=== PATIENT | female | born 1940 | race Caucasian/White ===

== ENCOUNTER → 2017-09-14 14:13 | Outpatient (CLI) | payer MEDICARE, OTHER, SELFPAY | PROVIDERS: Family Provider Family Medicine; PCP Family Medicine; Visit Provider Radiology Radiation Oncology | DX: Z00.00 Encounter for general adult medical examination without abnormal findings (principal) | CPT/HCPCS: 88175; G0145 ==

== ENCOUNTER → 2018-10-30 14:29 | Outpatient (CLI) | payer MEDICARE, OTHER, SELFPAY ==
[2015-02-11 21:53] VITALS: BMI 46.3
== END ==
PROVIDERS: Family Provider Family Medicine; PCP Family Medicine; Referring Provider Radiology Radiation Oncology; Visit Provider Radiology Radiation Oncology
DX: Z12.4 Encounter for screening for malignant neoplasm of cervix (principal); Z85.42 Personal history of malignant neoplasm of other parts of uterus; Z92.3 Personal history of irradiation
CPT/HCPCS: 88175; G0145

== ENCOUNTER → 2019-12-26 13:21 | Outpatient (CLI) | payer MEDICARE, OTHER, SELFPAY ==
--- NOTE | 2019-12-26 13:22 | MRI_ITS ---
HISTORY: DDD LUMBAR, LBP, RIGHT HIP/LEG PAIN COMPARISON: Lumbar radiograph 12/19/2019. CT 05/29/2012 TECHNIQUE: Multiplanar, multisequence MRI of the lumbar spine without IV contrast. FINDINGS: 17 of right convex lumbar scoliosis. No concerning focal bone lesion. Conus ends at L1-2. Disc desiccation, moderate to severe disc space narrowing and mild disc bulging in the lower thoracic spine. L1-L2: Disc desiccation, moderate disc space narrowing and mild diffuse disc bulging. Facet hypertrophy. No critical canal stenosis. Moderate left sided foraminal stenosis. L2-L3: Disc desiccation, moderate disc space narrowing and mild diffuse disc bulging. Facet and ligamentous hypertrophy. Mild to moderate central canal canal stenosis. Moderate left sided foraminal stenosis. L3-L4: Disc desiccation, moderate disc space narrowing and disc bulging. Facet and ligament hypertrophy. Approximate 3 mm of anterolisthesis of L3 on L4. Severe central canal stenosis. Mild right and moderate left foraminal stenosis. L4-L5: Severe disc space narrowing with mild disc bulging and disc osteophyte complex. Facet and ligamentous hypertrophy. Approximate 2 mm of anterolisthesis of L4 on L5. Severe central canal stenosis. Mild right sided foraminal narrowing. L5-S1: Severe disc space narrowing with mild disc bulging and disc osteophyte complex. Facet and ligamentous hypertrophy. Moderate central canal stenosis. Mild bilateral foraminal narrowing. Left renal cysts for which no follow-up is warranted per consensus guidelines. MRI/Spine Lumbar (Routine) IMPRESSION: Lumbar spondylosis as detailed. at 0740 Reported and signed by: Tamy Corbett MD Electronically Signed: Tamy Corbett MD at 7:39 EDT Tel , Service support ,
== END ==
PROVIDERS: PCP Family Medicine; Referring Provider Orthopaedic Surgery; Visit Provider Orthopaedic Surgery
DX: M51.36 Other intervertebral disc degeneration, lumbar region (principal)
CPT/HCPCS: 72148

== ENCOUNTER → 2020-01-13 15:23 | Outpatient (CLI) | payer MEDICARE, OTHER, SELFPAY ==
[2015-02-11 21:53] VITALS: BMI 46.3
--- NOTE | 2020-01-13 15:26 | RAD_ITS ---
STUDY: X-RAY - LUMBAR SPINE REASON FOR EXAM: Female, 79 years old. BACK,LEG PAIN TECHNIQUE: 2 view(s) of the lumbar spine were obtained. COMPARISON: None FINDINGS: Flexion and extension views were obtained. There is multilevel endplate spondylosis of the lumbar vertebrae. There is multi-level degenerative disc disease with multi-level disc space narrowing. Stable anterior listhesis of L3 on L4 and L4 on L5. Facet joint osteoarthritis. There is atherosclerotic calcification of the abdominal aorta without a demonstrated aneurysm. RAD/Lumbar Spine 2 or 3 Views IMPRESSION: Stable anterior listhesis of L3 on L4 and L4 on L5. Electronically Signed: Alex Elder, at 12:49 EST , Service support ,
== END ==
PROVIDERS: PCP Family Medicine; Referring Provider Anesthesiology Pain Medicine; Visit Provider Anesthesiology Pain Medicine
DX: M54.9 Dorsalgia, unspecified (principal); M79.606 Pain in leg, unspecified
CPT/HCPCS: 72100

== ENCOUNTER → 2020-05-04 16:28 | Outpatient (CLI) | payer MEDICARE, SELFPAY ==
[2015-02-11 21:53] VITALS: BMI 46.3
--- NOTE | 2020-05-04 16:45 | RAD_ITS ---
STUDY: X-RAY - LUMBAR SPINE REASON FOR EXAM: Female, 79 years old. FALL TECHNIQUE: 3 view(s) of the lumbar spine were obtained. COMPARISON: None FINDINGS: Normal lumbar lordosis. There is a dextroscoliosis of the lumbar spine. There is a normal alignment of the vertebrae. There is multilevel endplate spondylosis of the lumbar vertebrae. Moderate degree of disc space narrowing and subchondral sclerosis at the L4-L5 level. Marked degree of disc space narrowing and spondylosis at the L5-S1 level. Facet joint osteoarthritis. There is atherosclerotic calcification of the abdominal aorta without a demonstrated aneurysm. RAD/Lumbar Spine 2 or 3 Views IMPRESSION: Degenerative changes of the spine, as detailed above. Electronically Signed: Alex Elder MD at 13:09 EST , Service support ,
== END ==
PROVIDERS: PCP Family Medicine; Referring Provider Anesthesiology Pain Medicine; Visit Provider Anesthesiology Pain Medicine
DX: M54.5 Low back pain (principal); W19.XXXA Unspecified fall, initial encounter
CPT/HCPCS: 72100

== ENCOUNTER 2020-07-06 10:30 | Outpatient (RCR) | payer MEDICARE, SELFPAY ==
--- NOTE | 2020-06-08 18:48 | HP.PTEVAL_ITS ---
Patient's Visit Information ELÍAS AHN is a 79 year old F referred to Physical Therapy by Dr. Madhu Villeda MD with a diagnosis of BACK PAIN ,STABILITY. Date of Evaluation: 06/08/20 Physical Therapist: Jeff Lopez PT, Cert MDT, OCS - Visit Plan Frequency: 2x /Week Duration: 4 Weeks Plan: PT INTEREVTIONS LUMBAR FLEXION ,DLS,POSTURAL EX'S ,BLE STRENGTHENING ,AND MODALTIES NEEDED - Subjective This 79 y/o female presents to physical therapy with back pain and instablity.Patient has had leg pain for 3-4 months . Patient had a incident that she fell in May because legs gave way.Intailly ,patienr seen DR Morrow then was reffered to Dr Franco ,did MRI and x-rays showed severe DDD and lumbar stenosis.Ortho DR Franco sated not a canditate for surgery due to the severity Patient has symmtrical LBP and and intermittant radicular symptoms in legs. Then referrred to pain management DR Garcia tried 2 epidural injections.Aggraveting factors standing and walking ,walks with came ,elevation from chair. Allevaiting factors leaning foward ,sitting. Pain affects sleeping .Occasional parathesia/tingling. Bowel/bladder -. Coughing/sneezing -. Pain is described as dull ache.Patient comorbities sleep apnea,restlegs ,right TSR,. Patient back and leg pain along with weakness affects function and walking. SOCIAL: single. VOCATION: retired - Pain Bilateral Back Pain Intensity (Out of 10): 4 Bilateral Lower Extremity Pain Intensity (Out of 10): 4 Comment: worse 10/13 - Objective POSTURE: mild/mod thoracic kyphosis. NEURO: denies paratheisa/tinling,reflexes L3-4,L4-5,L5-S1 1/3. PALAPTION: tender LS. GAIT: slow aliya with 2 point pattern with cane mild foward posture slightly unsteady. SYMMTRIES:align. FLEXABLITY: hams WNL,IR 10 degrees. LUMBAR ROM: flexion min/mod loss,extension mod loss,side glides min/mod loss. MMT: quads/hams 4-/5,hip flexion 4-/5,hip abd 3+/5,ankle 4/5 - Special Tests L/S Slump test left side: Positive L/S Slump test right side: Positive L/S Left Straight Leg Raise: Negative L/S Right Straight Leg Raise: Negative Lumbar Standing: Flexion - Mechanical Response: No effect Lumbar Standing: Flexion - Symptoms During Testing: No effect Lumbar Standing: Flexion - Symptoms After Testing: No effect Lumbar Standing: Extension - Mechanical Response: No effect Lumbar Standing: Extension - Symptoms During Testing: Increases Lumbar Standing: Extension - Symptoms After Testing: No worse Lumbar Standing: Right Side Glides - Mechanical Response: No effect Lumbar Standing: Right Side [place] - Symptoms During Testing: No effect Lumbar Standing: Right Side [place] - Symptoms After Testing: No effect Lumbar Standing: Left Side [place] - Mechanical Response: No effect Lumbar Standing: Left Side [place] - Symptoms During Testing: No effect Lumbar Standing: Left Side [place] - Symptoms After Testing: No effect - Goals Goal 1:: Patient to be I with HEP Goal Time Frame: 4-6 Weeks Goal 2:: Patient to improve gait with less pain community distances Goal Time Frame: 4-6 Weeks Goal 3:: Patient to decrease back and leg pain by 50% or > to improve function and QOL Goal Time Frame: 4-6 Weeks Goal 4:: Patient to increase strength BLE 4/5 to improve function with gait. Goal Time Frame: 4-6 Weeks Goal 5:: Patient to improve BACK owestry score by 5 points or > to improve QOL Goal Time Frame: 4-6 Weeks - Rehabilitation Potential Physical Therapy Diagnosis: This patient has severe spinal stenosis with weakness in legs causes pain with walking and standing thus need cane better with flexion thus benifit from skilled PT Rehabilitation Potential: Good - Anticipated Interventions Patient/Client Instruction: Educate patient on: Condition, Plan of Care For the Purpose of:: To decrease pain, To increase ROM, To improve muscle performance and motor function, To improve ability to perform ADL's, To increase tolerance to activity/condition/position, To improve ability of physical actions for home/community/work/leisure, To improve health of tissue, To decrease soft tissue restriction, To increase flexibility/ROM, To improve ability to perform tasks related to life management Therapeutic Exercise to Include: Strength training, Endurance training, Balance training, Postural training, Flexibilty training, Dynamic Lumbar Stabilization Comment: BLE For the Purpose of:: To decrease pain, To increase ROM, To improve muscle performance and motor function, To improve ability to perform ADL's, To increase tolerance to activity/condition/position, To improve performance and independence with ADL's, To improve ability of physical actions for home/community/work/leisure, To improve health of tissue, To decrease soft tissue restriction, To increase flexibility/ROM, To improve ability to perform tasks related to life management TENS: Yes IF ES: Yes Cryotherapy (ice pack, ice massage): Yes Thermo therapy (hot pack): Yes Ultrasound (thermal/non thermal): Yes For the Purpose of:: To decrease pain, To improve nutrient delivery to tissue, To increase oxygenation perfusion, To improve health of tissue, To decrease soft tissue restriction Thank you for the opportunity to evaluate your patient. For Medicare and Medicare HMO plans, please review the plan of care and approve it. It will need to be FAXED BACK to us at [phone] for Medicare purposes. For Medicare only, by signing this I certify the plan of care. Please let me know if there are questions or concerns regarding this plan of care. Physician Signature: Date:
--- NOTE | 2020-07-06 10:58 | HP.PTDCSUM ---
It has been my pleasure to treat ELÍAS AHN referred by Dr. Madhu Villeda MD, with the diagnosis of BACK PAIN ,STABILITY for a total of 8 visit(s). Discharge Date: 07/06/20 Please see the following information for a summary of their discharge status. Subjective: Ready for d/c .. Had injection which helped. No pain today Bilateral Back Pain Intensity (Out of 10): 0 Bilateral Lower Extremity Pain Intensity (Out of 10): 0 % Improvement: 50 Objective/Function: POSTURE: mild foward psoture. GAIT: ambulates with cane mild foward posture with cane. MMT: QUADS/HAMS 4/5,HIP FLEXION 4-/5. LUMBAR:FLEXION MIN ,EXTENSION MOD LOSS Goal 1:: Patient to be I with HEP Goal Progress: Goal Met Goal 2:: Patient to improve gait with less pain community distances Goal Progress: Goal Met Goal 3:: Patient to decrease back and leg pain by 50% or > to improve function and QOL Goal 4:: Patient to increase strength BLE 4/5 to improve function with gait. Goal 5:: Patient to improve BACK owestry score by 5 points or > to improve QOL Goal Progress: Goal Met Plan: d/c to home Discharge Comments: HEP If there are questions or concerns regarding this patient's physical therapy, please feel free to call me at [phone]. Thank you for the referral of this patient. Sincerely, Jeff Lopez, PT, Cert MDT, OCS
== END 2020-07-06 19:00 | disposition home or self-care (01) ==
LOC: PT 10:30
PROVIDERS: PCP Family Medicine; Referring Provider Anesthesiology Pain Medicine; Visit Provider Anesthesiology Pain Medicine
DX: M54.9 Dorsalgia, unspecified (principal)
CPT/HCPCS: 97110; 97162

== ENCOUNTER → 2020-11-28 09:37 | Outpatient (CLI) | payer MEDICARE, SELFPAY ==
[2020-11-28 10:28] LABS: Erythrocyte Sedimentation Rate 48 mm/hr (0-30)
[2020-11-28 10:29] LABS: Absolute Lymphocyte Count 1.46 X10^3/uL (0.83-4.51); Absolute Neutrophil Count 3.1 X10^3/uL (2.0-7.7); Basophil# 0.02 X10^3/uL; Basophil% 0.4 % (0-1); Eosinophil# 0.09 X10^3/uL; Eosinophils% 1.8 % (0-5); Hematocrit 39.7 % (37-47); Hemoglobin 12.6 g/dL (12.0-15.0); Lymphocyte # 1.46 X10^3/ul (0.83-4.51); Lymphocyte % 28.7 % (19-41); Mean Corp Hgb Conc 31.7 g/dL (32-36); Mean Corpuscular Hgb 29.9 pg (27.0-32.0); Mean Corpuscular Volume 94.1 fL (81-99); Mean Platelet Vol. 10.2 fl (6.2-12.0); Monocyte# 0.43 X10^3/uL; Monocyte% 8.4 % (0-10); NRBC Flagged by Analyzer 0 % (0-5); Neutrophil # 3.08 X10^3/uL (2.7-7.7); Neutrophil % 60.5 % (47-70); Platelet Count 211 K/mm3 (150-450); RBC Distribution Width CV 13.5 % (11.6-14.6); RBC Distribution Width SD 46.8 fl (35.1-43.9); Red Blood Count 4.22 M/mm3 (4.2-5.4); White Blood Count 5.1 K/mm3 (4.4-11.0)
[2020-11-28 10:33] LABS: CRP 5.74 mg/L (0.0-3.0)
== END ==
PROVIDERS: PCP Family Medicine; Referring Provider Specialist; Visit Provider Specialist
DX: Z96.652 Presence of left artificial knee joint (principal)
CPT/HCPCS: 36415; 85025; 85652; 86140

== ENCOUNTER 2021-12-13 14:27 | Emergency (ER) | payer MEDICARE, SELFPAY ==
[2021-12-13 14:28] VITALS: BP 134/78; PULSE 78; RESP 16; TEMP 37.2; O2SAT 99; BMI 44.6
--- NOTE | 2021-12-13 14:45 | CT_ITS ---
STUDY: CT BRAIN WITHOUT CONTRAST REASON FOR EXAM: Female, 81 years old. FALL/ON ELIQUIS -- IN WAITING ROOM. Head injury. No loss of consciousness. RADIATION DOSAGE (If Supplied By Facility): CTDIvol = ( 44.99 ) mGy, DLP = ( 779.24 ) mGycm TECHNIQUE: Transaxial CT imaging of the brain was performed without administration of intravenous contrast material. Individualized dose optimization techniques were used for this CT. COMPARISON: No relevant priors. FINDINGS: Normal soft tissue structures. Normal calvarium. There is mild cerebral atrophy with widening of the extra-axial spaces and ventricular dilatation. There are areas of decreased attenuation within the white matter tracts of the supratentorial brain, consistent with microvascular disease changes. Findings suggestive of an old lacunar in the right basal ganglia. Normal brainstem. Normal cerebellum. There is no intracranial hemorrhage. There are no findings of an acute ischemic infarction. Normal visualized paranasal sinuses. CT/Brain/Head without Contrast IMPRESSION: Chronic involutional changes of the brain. Electronically Signed: Alex Elder MD at 15:11 EDT ,
--- NOTE | 2021-12-13 15:19 | ED.VIS.FALL ---
HPI HPI - Fall History of Present Illness Chief Complaint: Fall Informant: patient Occured/Mechanism Occurred: Today Mechanism/Context: Yes same level fall Usually ambulates: Walker Pain/Injury Pain Location: head Quality of Pain: Dull Current Severity: Mild Maximum Severity: Mild Associated Symptoms Associated Symptoms: Negative for Parasthesias, Weakness, Loss of function, Inability to ambulate, Loss of consciousness or Amnesia Narrative Narrative: 81-year-old female states that she and friends went out to eat. The [facility] and she was parked there when she went back to the car she uses a walker estrogenic in her car she lost her balance fell backwards hit her head. She is on the blood thinner Xarelto due to her prior clot. Said she was not knocked out. Denies any headache. Denies any other injuries. She was brought in by squad to be evaluated. She denies any recent illness. Says she was feeling fine today. Prior similar symptoms: No Recent Illness/Hospitalization: No PFSH PFSH Home Medications calcium carbonate 600 mg calcium (1,500 mg) tablet 600 mg PO DAILY 01/14/15 [History Last Taken Unknown] multivitamin 1 tab PO DAILY 01/14/15 [History Last Taken Unknown] ropinirole 0.25 mg tablet 0.25 mg PO QHS 01/14/15 [History Last Taken Unknown] famotidine 20 mg tablet 20 mg PO DAILY #30 tabs 02/13/15 [Rx Last Taken Unknown] losartan 100 mg-hydrochlorothiazide 25 mg tablet tab PO 02/12/20 [History Last Taken Unknown] paroxetine HCl 40 mg tablet ea PO 02/12/20 [History Last Taken Unknown] Allergy/AdvReac Type Severity Reaction Status Date / Time Penicillins [PCN] Allergy Hives Verified 12/13/21 14:27 Social History Smoking Status: Never smoker ROS ROS ED ROS Narrative Denies recent illness. Review of Systems ROS Unobtainable: Denies due to encephalopathy Constitutional Constitutional ED: Denies chills or fever(s) Eyes Eyes: Denies blurry vision ENT ENT ED: Denies ear pain Cardiovascular Cardiovascular: Denies chest pain or palpitations Respiratory/Chest Respiratory/Chest: Denies cough or dyspnea Gastrointestinal Gastrointestinal: Denies abdominal pain Genitourinary Genitourinary ED: Denies dysuria or hematuria Musculoskeletal Musculoskeletal: Denies arthralgias Integumentary Denies abscess or Abrasions Neurologic Neurologic: Denies headache(s) Psychiatric Psychiatric: Denies anxiety Endocrine Endocrinology: Denies polydipsia Hematologic/Lymphatic Hematologic/Lymphatic: Denies easy bleeding Allergic/Immunologic Allergic/Immunologic ED: Denies mouth swelling or tongue swelling EXAM Physical Exam Narrative Exam Narrative: 81-year-old female no acute distress. Vital signs stable afebrile. Pulse ox 9 9% on room air no hypoxia. H EENT exam pupils round reactive light extra motions intact. No facial trauma. She is small contusion of posterior scalp. Minimally tender. No laceration or blood. C-spine nontender. Normal range of motion her neck. Trachea midline. Lungs clear to auscultation bilaterally. Heart regular rhythm rate about 80 no murmur. Chest wall nontender. Abdomen soft nontender. Pelvic girdle intact. Back and spine are nontender. No bruising or abrasions. Moving all 4 extremities. Normal executive [employer] strength bilaterally. Normal range of motion both upper extremities. Both hips are nontender. No shortening or rotation. Normal dorsi and plantar flexion. No bony tenderness or deformity to either upper or lower extremities. Neurologically she is awake and alert with no focal motor deficits. Const Vital Signs: 12/13/21 14:28 Temperature 98.9 F Temperature Source Temporal Pulse Rate 78 Respiratory Rate 16 Blood Pressure 134/78 H Blood Pressure Mean 96 Pulse Ox 99 Oxygen Delivery Method Room Air Positive well nourished, well developed and obese; Negative for cachectic, contractures or unkempt General Appearance ED: well developed and NAD; Negative for unkempt, cachectic or contractures Nutritional Appearance: obese; Negative for cachectic HEENT Reports normocephalic trauma and contusion; Negative for atraumatic, hematoma or tenderness Eyes PERRL and EOMs intact bilaterally General Eye ED: Negative for pale conjunctiva or scleral icterus Neck full ROM, no lymphadenopathy and supple General: Negative for tenderness Chest Wall inspection of chest normal and palpation of chest normal Resp normal respiratory effort, no retractions and clear to auscultation bilaterally Effort and Inspection: Negative for pain with movement Auscultation: Negative for rales, rhonchi or wheezes Cardio regular rate, regular rhythm, S1 normal heart sound, S2 normal heart sound and no murmurs Rate: Negative for bradycardia or tachycardic Rhythm: Negative for abnormal rhythm Bruits: Negative for other GI non-tender, non-distended and no masses Inspection: Negative for abdominal distention Auscultation: normoactive bowel sounds Palpation: soft; Negative for guarding Back/Spine no CVA tenderness General Back: Negative for CVA tenderness Cervical Spine: Negative for cervical spine tenderness Thoracic Spine / Upper Back: ROM limited; Negative for pain with ROM or thoracic spinal tenderness Lumbar Spine / Lower Back: Negative for lumbar spinal tenderness or paraspinal muscle tenderness Neuro oriented x3, CN's II-XII intact bilaterally, moves all extremities and no focal motor deficits Kavitha Coma Scale: document GCS findings Spontaneous Obeys Commands Oriented 15 Sensorium / Orientation: alert, oriented to person, oriented to place and oriented to time; Negative for orientation impaired, confused, lethargic or stuporous Motor Exam: strength 5/5 throughout Psych mental status grossly normal and thought process normal Appearance: Negative for unkempt Attitude: No agitated Mood & Affect: Negative for depressed Skin General Skin Exam: Negative for other Lesions: no lesions Rashes: no rashes Trauma: Negative for abrasion MDM MDM MDM Narrative Medical decision making narrative: 81-year-old fell while getting in her car using her walker. Hit the back of her head. On Xarelto. CAT scan obtained. Shows no acute abnormality. No bleed. No fracture. Read by the radiologist and reviewed by me. Patient will be ambulated by nursing if she can walk she will be discharged home. Her exam otherwise is benign. Patient doing well repeat exam at 4:05 PM. CAT scan was negative. She ambulated well with the nurses will be discharged home with head injury instructions. Radiography Diagnostic Testing: Clinical Impression(s) from Imaging Studies Brain CT 12/13/21 14:45 IMPRESSION: Chronic involutional changes of the brain. Electronically Signed: Alex Elder MD at 15:11 EDT , Discharge Plan Triage Chief Complaint: Fall ED Provider: Franklin Rodriguez Dx/Rx/DC Orders Clinical Impression: Fall, CHI (closed head injury) Instructions: ED Head Injury (Adult) Prescriptions: No Action paroxetine HCl 40 mg tablet PO Label Comments: take 1 tablet by mouth once daily losartan-hydrochlorothiazide 100-25 mg tablet PO multivitamin 1 EACH tablet 1 tab PO DAILY Label Comments: supplement calcium carbonate 600 MG tablet 600 mg PO DAILY Label Comments: supplement ropinirole 0.25 MG tablet 0.25 mg PO QHS Label Comments: 1 OR 2 TABS BEFORE BEDTIME famotidine 20 MG tablet 20 mg PO DAILY Qty: 30 0RF Primary Care Provider: Chay Solis Referrals: Chay Solis MD [Primary Care Provider] - As Needed Activity Restrictions/Additional Instructions: Ice to your back your head. Tylenol for pain. Return if severe headache, vomiting or not acting herself. Hold your blood thinning medication today. May restart tomorrow. Disposition Disposition: Home, Self Care
[2021-12-13 16:13] VITALS: BP 142/75; PULSE 80; RESP 16; O2SAT 98
== END 2021-12-13 16:14 | disposition home or self-care (01) ==
PROVIDERS: Emergency Provider Emergency Medicine; PCP Family Medicine; Visit Provider Emergency Medicine
DX: S09.90XA Unspecified injury of head, initial encounter (principal); W18.30XA Fall on same level, unspecified, initial encounter; E66.9 Obesity, unspecified; Z79.01 Long term (current) use of anticoagulants
CPT/HCPCS: 70450; 99285

== ENCOUNTER 2022-05-30 16:16 | Inpatient (IN) | payer MEDICARE, MEDICAID, SELFPAY ==
[2022-05-30 16:18] VITALS: BP 136/78; PULSE 107; RESP 18; TEMP 36.2; O2SAT 99
--- NOTE | 2022-05-30 17:56 | ED.VIS.FALL ---
HPI HPI - Fall History of Present Illness Chief Complaint: Fall Informant: patient Occured/Mechanism Occurred: Today Pain/Injury Location: Bilateral knees, right ankle Quality of Pain: Aching Worsened by: Nothing Relieved by: Nothing Associated Symptoms Associated Symptoms: Positive for Weakness; Negative for Parasthesias, Loss of function, Inability to ambulate, Loss of consciousness or Amnesia Narrative Narrative: Patient presents after a fall that occurred today. Patient states that she was trying to get into her truck and her leg felt weak. Patient states it gave out and she fell to the ground. Patient complains of pain to both knees and the right ankle. Patient denies any head injury or loss of consciousness. Patient describes her pain as aching. Patient states both of her legs feel weak but her right one feels weaker. Patient denies any fevers or chills. Patient does admit to some pain in her neck but denies any low back pain. Patient denies any paresthesias. Patient denies any hip pain. Patient denies any chest pain or shortness of breath. Patient denies any urinary complaints. [facility] Medical History Congestive heart failure (CHF) Hypertension Restless leg syndrome Home Medications calcium carbonate 600 mg calcium (1,500 mg) tablet 600 mg PO DAILY 01/14/15 [History Last Taken Unknown] multivitamin 1 tab PO DAILY 01/14/15 [History Last Taken Unknown] ropinirole 0.25 mg tablet 0.25 mg PO QHS 01/14/15 [History Last Taken Unknown] famotidine 20 mg tablet 20 mg PO DAILY #30 tabs 02/13/15 [Rx Last Taken Unknown] losartan 100 mg-hydrochlorothiazide 25 mg tablet tab PO 02/12/20 [History Last Taken Unknown] paroxetine HCl 40 mg tablet ea PO 02/12/20 [History Last Taken Unknown] Allergy/AdvReac Type Severity Reaction Status Date / Time Penicillins [PCN] Allergy Hives Verified 05/30/22 16:24 Family History (Updated 05/30/22 @ 20:[address] Des Camilo MD) Other COPD (chronic obstructive pulmonary disease) Hypertension Surgical History History of right hip replacement History of right shoulder replacement History of total left hip replacement History of total left knee replacement History of total replacement of left shoulder joint Status post right partial knee replacement Social History Smoking Status: Never smoker ROS ROS ED Constitutional Constitutional ED: Denies chills or fever(s) Eyes Eyes: Denies blurry vision or change in vision ENT ENT ED: Denies rhinorrhea or sore throat Cardiovascular Cardiovascular: Denies chest pain or palpitations Respiratory/Chest Respiratory/Chest: Denies cough or dyspnea Gastrointestinal Gastrointestinal: Denies nausea or vomiting Genitourinary Genitourinary ED: Denies dysuria or hematuria Musculoskeletal Musculoskeletal: Reports neck pain; Denies back pain Integumentary Denies abscess or rash Neurologic Neurologic: Reports weakness; Denies headache(s) Hematologic/Lymphatic Hematologic/Lymphatic: Reports easy bruising Allergic/Immunologic Allergic/Immunologic ED: Denies mouth swelling or urticaria EXAM Physical Exam Const Vital Signs: 05/30/22 16:18 05/30/22 17:51 05/30/22 20:35 Temperature 97.1 F L Temperature Source Temporal Pulse Rate 107 H 121 H Respiratory Rate 18 18 Respiratory Effort Normal Non-Labored Respiratory Depth Normal Respiratory Pattern Normal Blood Pressure 136/78 H Blood Pressure Mean 97 Pulse Ox 99 97 Oxygen Delivery Method Room Air Room Air Positive well nourished, well developed and obese General Appearance ED: well developed and NAD Nutritional Appearance: obese HEENT Reports normocephalic atraumatic Neck no lymphadenopathy and supple Resp normal respiratory effort and clear to auscultation bilaterally Cardio regular rate and regular rhythm GI non-tender and non-distended Palpation: soft Extremity Extremity Narrative: There is mild tenderness over the knees bilaterally. Extensor mechanism is intact bilaterally. There is mild tenderness over the right ankle. There is mild edema. There is no ecchymosis. There is no bony crepitance or step-off. There is no obvious deformity noted. Pedal pulses are equal bilaterally. Sensation was intact to light touch bilaterally in the lower extremities. Neuro oriented x3, CN's II-XII intact bilaterally, moves all extremities, no focal motor deficits and no sensory deficits noted Sensorium / Orientation: alert Motor Exam: strength abnormal other (Strength is 4/5 in the lower extremities bilaterally, slightly worse on the right.) Psych mental status grossly normal and thought process normal MDM MDM MDM Narrative Medical decision making narrative: Differential diagnosis includes general weakness, infection, fracture of the knee, ankle fracture, cardiac dysrhythmia, cardiac ischemia, electrolyte abnormality, and pneumonia. CBC will be obtained to assess for anemia and leukocytosis. Basic metabolic profile will be obtained to assess for electrolyte abnormality and renal function. Urinalysis will be obtained to assess for urinary tract infection and hematuria. EKG will be obtained to assess for cardiac ischemia and cardiac dysrhythmia. High-sensitivity troponin will be obtained to assess for cardiac ischemia. X-rays of the knees will be obtained to assess for fracture. X-ray of the right ankle will be obtained to assess for ankle fracture. Lab Data Lab results narrative: CBC was reviewed and was within normal limits. Basic metabolic profile was reviewed and showed a potassium of 2.9. The remainder was within normal limits. High-sensitivity troponin was reviewed and was elevated at 690. Urinalysis was reviewed. There is no evidence of urinary tract infection or hematuria. Labs: Laboratory Results - last 24 hr 05/30/22 05/30/22 05/30/22 16:35 18:35 18:35 WBC 8.8 RBC 4.30 Hgb 12.1 Hct 38.1 MCV 88.6 MCH 28.1 MCHC 31.8 L RDW Std Deviation 47.8 H RDW Coeff of Beth 14.6 Plt Count 228 MPV 9.9 Immature Gran % (Auto) 0.100 Neut % (Auto) 85.2 H Lymph % (Auto) 8.2 L [place] % (Auto) 6.0 Eos % (Auto) 0.2 Baso % (Auto) 0.3 Absolute Neuts (auto) 7.5 Absolute Lymphs (auto) 0.72 L Nucleated RBC % 0 Sodium 138 Potassium 2.9 L Chloride 102 Carbon Dioxide 30.0 Anion Gap 6 BUN 13 Creatinine 0.65 Est GFR (MDRD) Af Amer 113 Est GFR (MDRD) Non-Af 94 BUN/Creatinine Ratio 20.1 H Glucose 96 Calcium 9.1 Magnesium Troponin I High Sens 690 H* Urine Color Yellow Urine Clarity Clear Urine pH 7.0 Ur Specific [place] 1.010 Urine Protein 15 H Urine Glucose (UA) Normal Urine Ketones 50 H Urine Occult Blood 10 H Urine Nitrite Negative Urine Bilirubin Negative Urine Urobilinogen Normal Ur Leukocyte Esterase Negative Urine RBC 0 SEEN Urine WBC 0-5 SEEN Ur Squamous Epith Cells 0 SEEN Urine Bacteria 0 SEEN Urine Mucus 0 SEEN 05/30/22 18:35 WBC RBC Hgb Hct MCV MCH MCHC RDW Std Deviation RDW Coeff of Beth Plt Count MPV Immature Gran % (Auto) Neut % (Auto) Lymph % (Auto) [place] % (Auto) Eos % (Auto) Baso % (Auto) Absolute Neuts (auto) Absolute Lymphs (auto) Nucleated RBC % Sodium Potassium Chloride Carbon Dioxide Anion Gap BUN Creatinine Est GFR (MDRD) Af Amer Est GFR (MDRD) Non-Af BUN/Creatinine Ratio Glucose Calcium Magnesium 1.2 L Troponin I High Sens Urine Color Urine Clarity Urine pH Ur Specific [place] Urine Protein Urine Glucose (UA) Urine Ketones Urine Occult Blood Urine Nitrite Urine Bilirubin Urine Urobilinogen Ur Leukocyte Esterase Urine RBC Urine WBC Ur Squamous Epith Cells Urine Bacteria Urine Mucus Radiography Chest X-Ray - ED: 1 View, Read by ED Physician, Read by Radiologist and No Acute Disease Diagnostic Testing: Clinical Impression(s) from Imaging Studies Ankle X-Ray 05/30/22 19:00 IMPRESSION: There is soft tissue swelling. Electronically Signed: Chalino Reynoso MD at 19:46 EDT , Chest X-Ray 05/30/22 19:00 IMPRESSION: There are no acute findings. Electronically Signed: Chalino Reynoso MD at 19:46 EDT , Knee X-Ray 05/30/22 19:00 IMPRESSION: There are no acute findings. 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 Electronically Signed: Chalino Reynoso MD at 19:47 EDT , X-rays of the right knee were obtained. There are 2 views. On my independent interpretation, there is no acute fracture or dislocation. The prosthesis is intact. Radiologist also interpreted the x-rays and agrees. X-rays of the left knee were obtained. There are 2 views. On my independent interpretation, there is no acute fracture or dislocation. The prosthesis is intact. Radiologist also interpreted the x-rays and agrees. X-rays of the right ankle were obtained. There are 3 views. On my independent interpretation, there is no acute fracture or dislocation. There is some mild soft tissue swelling. Radiologist also interpreted the x-rays and agrees. Portable 1 view chest x-ray was obtained. On my independent interpretation, lung merritt are clear. There is normal cardiac silhouette. Bony thorax is normal. There is no acute process noted. Radiologist also interpreted the x-ray and agrees. EKG Initial EKG: Attestation: I personally reviewed and interpreted this EKG as follows: Interpretation: Sinus Rhythm (104), No Acute Injury Pattern and RBBB Prior EKG tracings: available for review Prior: Changed (The right bundle branch block pattern is new compared to previous EKG dated 02/25/2014.) Management Discussion w/another healthcare provider: Hospitalist and [employer] Finishing Supervisor (Dr. Mendez from cardiology) Treatment and Re-Evaluation Narrative: Patient was advised of her findings. Patient was given a dose of potassium here. Patient was also given aspirin. Case was discussed with the hospitalist. He will admit the patient to his service. Case was also discussed with fashion artist. He recommended obtaining a CTA of the chest. He will follow the patient in consultation. Patient understands and is agreeable with the plan. All questions were answered. Discharge Plan Triage Chief Complaint: Fall ED Provider: Robbie Mcdonald Dx/Rx/DC Orders Clinical Impression: Weakness, Fall, Elevated troponin, Hypokalemia Prescriptions: No Action paroxetine HCl 40 mg tablet PO Label Comments: take 1 tablet by mouth once daily losartan-hydrochlorothiazide 100-25 mg tablet PO multivitamin 1 EACH tablet 1 tab PO DAILY Label Comments: supplement calcium carbonate 600 MG tablet 600 mg PO DAILY Label Comments: supplement ropinirole 0.25 MG tablet 0.25 mg PO QHS Label Comments: 1 OR 2 TABS BEFORE BEDTIME famotidine 20 MG tablet 20 mg PO DAILY Qty: 30 0RF Primary Care Provider: Chay Solis Referrals: Chay Solis MD [Primary Care Provider] - Disposition Disposition: Acute Care Hospital [facility]
[2022-05-30 18:51] LABS: Bacteria 0 SEEN /hpf (None Seen); Mucous, Urine 0 SEEN /hpf (<or=2+); Red Blood Cells-Urine 0 SEEN /hpf (0-5); Squamous Epithelial Cells - UA 0 SEEN /hpf (5-10)
[2022-05-30 18:53] LABS: Color, Urine Yellow (Yellow); Glucose, Dipstick Normal (Normal); Ketone-Dipstick 50 mg/dl (Negative); Leukocyte Esterase-Dipstick Negative /ul (Negative); Nitrite-Dipstick Negative (Negative); Occult Blood-Urine 10 /ul (Negative); Protein-Dipstick 15 mg/dl (Negative); Urine Bilirubin Dipstick Negative (Negative); Urine Clarity Clear (Clear); Urine Urobilinogen Normal (Normal)
[2022-05-30 18:54] LABS: Absolute Lymphocyte Count 0.72 X10^3/uL (0.83-4.51); Absolute Neutrophil Count 7.5 X10^3/uL (2.0-7.7); Basophil# 0.03 X10^3/uL; Basophil% 0.3 % (0-1); Eosinophil# 0.02 X10^3/uL; Eosinophils% 0.2 % (0-5); Hematocrit 38.1 % (37-47); Hemoglobin 12.1 g/dL (12.0-15.0); Lymphocyte # 0.72 X10^3/ul (0.83-4.51); Lymphocyte % 8.2 % (19-41); Mean Corp Hgb Conc 31.8 g/dL (32-36); Mean Corpuscular Hgb 28.1 pg (27.0-32.0); Mean Corpuscular Volume 88.6 fL (81-99); Mean Platelet Vol. 9.9 fl (6.2-12.0); Monocyte# 0.53 X10^3/uL; NRBC Flagged by Analyzer 0 % (0-5); Neutrophil # 7.47 X10^3/uL (2.7-7.7); Neutrophil % 85.2 % (47-70); Platelet Count 228 K/mm3 (150-450); RBC Distribution Width CV 14.6 % (11.6-14.6); RBC Distribution Width SD 47.8 fl (35.1-43.9); White Blood Count 8.8 K/mm3 (4.4-11.0)
--- NOTE | 2022-05-30 19:00 | RAD_ITS ---
STUDY: XR Knee 1 or 2 Views 05/30/2022 7:46 PM REASON FOR EXAM: Female, 81 years old. Injury/Pain TECHNIQUE: XR Knee 1 or 2 Views RIGHT COMPARISON: None FINDINGS: Normal visualized distal femur. Normal visualized proximal tibia and fibula. Normal proximal tibiofibular articulation. Hemiarthroplasty of the medial femorotibial compartment. 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 There is severe degenerative arthrosis of the patellofemoral articulation. The soft tissue structures are unremarkable. 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 Electronically Signed: Chalino Reynoso MD at 19:47 EDT ,
--- NOTE | 2022-05-30 19:00 | RAD_ITS ---
STUDY: XR Chest 1 View 05/30/2022 6:58 PM REASON FOR EXAM: Female, 81 years old. CHEST PAIN Weakness COMPARISON: None TECHNIQUE: XR Chest 1 View FINDINGS: There is no demonstrated pleural abnormality. Total right shoulder arthroplasty. Enlarged heart size. Normal mediastinum. Normal radha. Prominent appearing increased interstitial lung markings. Normal visualized pulmonary arteries. There is atherosclerotic calcification of the aortic arch with tortuosity. There are diffuse degenerative changes of the visualized thoracic spine. There is degenerative osteoarthritis of the bilateral shoulders. There is no demonstrated abnormality of the visualized soft tissue structures of the upper abdomen. RAD/Chest 1 View (Portable) IMPRESSION: There are no acute findings. Electronically Signed: Chalino Reynoso MD at 19:46 EDT ,
--- NOTE | 2022-05-30 19:00 | RAD_ITS ---
STUDY: XR Knee 1 or 2 Views 05/30/2022 7:46 PM REASON FOR EXAM: Female, 81 years old. Injury/Pain TECHNIQUE: XR Knee 1 or 2 Views LEFT COMPARISON: None FINDINGS: Total left knee arthroplasty. Normal visualized proximal tibia and fibula. Normal proximal tibiofibular articulation. Normal medial femorotibial compartment. Normal lateral femorotibial compartment. Normal patellofemoral articulation. The soft tissue structures are unremarkable. RAD/Knee 1 or 2 Views IMPRESSION: There are no acute findings. Electronically Signed: Chalino Reynoso MD at 19:48 EDT ,
--- NOTE | 2022-05-30 19:00 | RAD_ITS ---
STUDY: XR Ankle Min 3 Views REASON FOR EXAM: Female, 81 years old. ANKLE PAIN TECHNIQUE: XR Ankle Min 3 Views RIGHT COMPARISON: None. FINDINGS: Normal visualized distal tibia and fibula. Normal medial and lateral malleoli. Normal tibiotalar articulation and ankle mortise. The visualized subtalar, talonavicular, calcaneocuboid and tarsal articulations are normal. Normal talus, calcaneus, and tarsal bones. There is soft tissue swelling around the ankle. RAD/Ankle min 3 Views IMPRESSION: There is soft tissue swelling. Electronically Signed: Chalino Reynoso MD at 19:46 EDT ,
[2022-05-30 19:16] LABS: Anion Gap 6 (5-15); BUN 13 mg/dL (7-18); BUN/Creat Ratio 20.1 RATIO (10-20); Calcium,Total 9.1 mg/dL (8.5-10.1); Chloride 102 mmol/L (98-107); Creatinine, Serum 0.65 mg/dL (0.55-1.02); EST Glomerular Filtration Rate 94 mL/min (>60); Est Glom Filt Rate - Afr Amer 113 mL/min (>60); Glucose 96 mg/dL (74-106); Potassium 2.9 mmol/L (3.5-5.1); Sodium Level 138 mmol/L (136-145); Troponin-I HS 690 pg/mL (3.0-54.0)
--- NOTE | 2022-05-30 20:01 | EKG12_ITS ---
Test Reason : NSTEMI Blood Pressure : / mmHG Vent. Rate : 117 BPM Atrial Rate : 117 BPM P-R Int : 148 ms QRS Dur : 140 ms QT Int : 356 ms P-R-T Axes : 043 -10 027 degrees QTc Int : 496 ms Sinus tachycardia Right bundle branch block Inferior infarct , age undetermined Abnormal ECG When compared with ECG of 30-MAY-2022 18:20, MANUAL COMPARISON REQUIRED, DATA IS UNCONFIRMED Confirmed by JESSE GEORGE, GENESIS ([id number]), science editor ELIAS MIDDLETON ([id number]) on 06/01/2022 9:59:57 AM Referred By: ANALY Confirmed By:GENESIS MOLINA MD
[2022-05-30] MEDS: Aspirin 81 MG TAB.CHEW 324 MG PO (20:02)
[2022-05-30] MEDS: Potassium Chloride Oral Tablet 20 MEQ 40 MEQ PO (20:02)
--- NOTE | 2022-05-30 20:02 | PCM.HP.STD ---
HPI - General General Date of Admission: 05/30/22 Date of Service: 05/30/22 Chief Complaint: Fall HPI Narrative ELÍAS AHN, is a 81 F with a significant history of congestive heart failure; restless leg syndrome; hypertension; COPD; DVT and right hip pain who presents to the emergency department with a fall. Of note patient lives at [place] but because her home is out of light she came in to live with her son and [id number]. While getting into a truck her right lower extremity was weak and she fell. Following the fall she had pain in her left knee and in the right ankle. Also patient reports of chronic left arm pain that has been going on for about a year. She is supposed to see Dr. Caldwell orthopedic surgeon for her right hip pain on the day of presentation but she has rescheduled appointment for May. [facility] Medical History Congestive heart failure (CHF) Hypertension Restless leg syndrome Home Medications calcium carbonate 600 mg calcium (1,500 mg) tablet 600 mg PO DAILY Check with primary doctor 01/14/15 [History Last Taken Unknown] multivitamin 1 tab PO DAILY Check with primary doctor 01/14/15 [History Last Taken Unknown] losartan 100 mg-hydrochlorothiazide 25 mg tablet 1 tab PO DAILY blood pressure 02/12/20 [History Last Taken Unknown] paroxetine HCl 40 mg tablet 1 ea PO DAILY Check with primary doctor 02/12/20 [History Last Taken Unknown] apixaban 5 mg tablet (Eliquis) 5 mg PO BID blood clot 05/30/22 [History Last Taken Unknown] latanoprost 0.005 % eye drops 1 drp EACH EYE DAILY glacoma 05/30/22 [History Last Taken Unknown] pantoprazole 40 mg tablet,delayed release 40 mg PO DAILY Check with primary doctor 05/30/22 [History Last Taken Unknown] pramipexole 0.5 mg tablet 0.5 mg PO BID restless leg 05/30/22 [History Last Taken Unknown] tramadol 50 mg tablet 50 mg PO Q12H pain 05/30/22 [History Last Taken Unknown] furosemide 40 mg tablet 40 mg PO DAILY Leg Swelling 05/31/22 [History Last Taken Unknown] Allergy/AdvReac Type Severity Reaction Status Date / Time Penicillins [PCN] Allergy Hives Verified 05/30/22 16:24 Family History Other COPD (chronic obstructive pulmonary disease) Hypertension Surgical History History of right hip replacement History of right shoulder replacement History of total left hip replacement History of total left knee replacement History of total replacement of left shoulder joint Status post right partial knee replacement Social History Smoking Status: Never smoker ROS ROS Narrative Pertinent positives and pertinent negatives as noted in HPI. All other systems were reviewed and are negative Vital Signs Vital Signs Vital Signs: 05/30/22 16:18 05/30/22 17:51 Temperature 97.1 F L Temperature Source Temporal Pulse Rate 107 H Respiratory Rate 18 Respiratory Effort Normal Non-Labored Respiratory Depth Normal Respiratory Pattern Normal Blood Pressure 136/78 H Blood Pressure Mean 97 Pulse Ox 99 Oxygen Delivery Method Room Air Physical Exam Narrative Physical exam: General: Well-nourished, well-developed. Head: Normocephalic, atraumatic, no tenderness Eyes: Vision is grossly intact. EOMI ENT, no trauma, moist mucous membranes, no rhinorrhea Neck: Nontender, No thyromegaly. CVS: Tachycardia. S1-S2 present. No murmur, gallop or rub. Respiratory : Audible wheezing. chest wall nontender. Abdomen: Soft, nontender, nondistended, normal bowel sounds, no masses : Deferred Back: Nontender, no CVA tenderness. Extremities: Nontender full range of motion, no trauma Skin: Abrasion on left knee and right knee. Tenderness of left knee. Abrasions on bilateral pimentel. Neuro: Alert, oriented, cranial nerves II through XII grossly intact. Psychiatry: Normal mood. Normal affect. Not depressed. Not anxious. Results Lab / Micro Data Result Diagrams: 05/31/22 04:30 05/31/22 04:30 Labs: Laboratory Results - last 24 hr 05/30/22 16:35: Urine Color Yellow, Urine Clarity Clear, Urine pH 7.0, Ur Specific [place] 1.010, Urine Protein 15 H, Urine Glucose (UA) Normal, Urine Ketones 50 H, Urine Occult Blood 10 H, Urine Nitrite Negative, Urine Bilirubin Negative, Urine Urobilinogen Normal, Ur Leukocyte Esterase Negative 05/30/22 18:35: WBC 8.8, RBC 4.30, Hgb 12.1, Hct 38.1, MCV 88.6, MCH 28.1, MCHC 31.8 L, RDW Std Deviation 47.8 H, RDW Coeff of Beth 14.6, Plt Count 228, MPV 9.9, Immature Gran % (Auto) 0.100, Neut % (Auto) 85.2 H, Lymph % (Auto) 8.2 L, [place] % (Auto) 6.0, Eos % (Auto) 0.2, Baso % (Auto) 0.3, Absolute Neuts (auto) 7.5, Absolute Lymphs (auto) 0.72 L, Nucleated RBC % 0 05/30/22 18:35: Sodium 138, Potassium 2.9 L, Chloride 102, Carbon Dioxide 30.0, Anion Gap 6, BUN 13, Creatinine 0.65, Est GFR (MDRD) Af Amer 113, Est GFR (MDRD) Non-Af 94, BUN/Creatinine Ratio 20.1 H, Glucose 96, Calcium 9.1, Troponin I High Sens 690 H* Radiology Impression Ankle X-Ray 05/30/22 19:00 IMPRESSION: There is soft tissue swelling. Electronically Signed: Chalino Reynoso MD at 19:46 EDT , Chest X-Ray 05/30/22 19:00 IMPRESSION: There are no acute findings. Electronically Signed: Chalino Reynoso MD at 19:46 EDT , Knee X-Ray 05/30/22 19:00 IMPRESSION: There are no acute findings. 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 Electronically Signed: Chalino Reynoso MD at 19:47 EDT Reading Location ID and State: [facility] / [place] , Service support , Assessment & Plan Assessment/Plan (1) Elevated troponin: (2) Weakness: (3) Fall: PLAN: Plan Elevated troponin Initial troponin on presentation was 690. Trend troponin. EKG showed right bundle branch block. This is new from EKG in 2013. Etiology unclear at this time. I discussed case with cardiology who recommended CTA chest and if CTA showed PE to start patient on higher dose of Eliquis. CTA chest ordered in the ED, follow. If CTA negative will consult cardiology. Chest x-ray was visualized and independently interpreted. I agree with the interpretation that there are no acute findings. Received full dose aspirin emergency department. Baby aspirin daily ordered. Echocardiogram ordered. Fall and weakness Knee X-ray with no acute findings. PT and OT to work with patient for training and balance training Tylenol as needed for pain. Case management consult for disposition. Hypokalemia Potassium of 2.9 on presentation received 40 mg of p.o. potassium in the ED. 40 mg IV ordered. Trend BMP Hypomagnesemia Magnesium of 1.2 on presentation. 4 g IV magnesium given. Hypertension Blood pressure is stable Trend blood pressures. Continue home blood pressure medications. DVT prophylaxis: On Eliquis. Charges/Coding Visit Charges Inpatient E&M: 78351 Init Hosp L3
[2022-05-30 20:03] LABS: White Blood Cells 0-5 SEEN /hpf (0-5)
[2022-05-30 20:04] VITALS: BMI 46.7
[2022-05-30 20:21] LABS: Magnesium 1.2 mg/dL (1.6-2.6)
--- NOTE | 2022-05-30 20:27 | CT_ITS ---
EXAM: CT ANGIOGRAPHY CHEST WITHOUT AND WITH INTRAVENOUS CONTRAST CLINICAL INDICATION: Pulmonary embolism TECHNIQUE: Helically acquired angiography images were obtained of the chest without and with intravenous contrast. This CT exam was performed using one or more of the following dose reduction techniques: automated exposure control, adjustment of the mA and/or kV according to patient size, and/or use of iterative reconstruction technique. This report was created using [employer] report generation technology. MIP reconstructed images were created and reviewed. CONTRAST: IV 100mL [id number] RADIATION DOSE: CTDIvol = 16.23 mGy, DLP = 566.77 mGy-cm COMPARISON: None. FINDINGS: PULMONARY ARTERIES: Unremarkable. No demonstrated pulmonary embolism or arterial dissection. AORTA: There is atherosclerotic calcification of the aortic arch with tortuosity and elongation of the aortic arch and descending thoracic aorta. Normal in caliber. No evidence of dissection. GREAT VESSELS OF AORTIC ARCH: See above. LUNGS AND PLEURAL SPACES: Unremarkable. No mass. No consolidation or edema. No pleural effusion or thickening. No pneumothorax. HEART: There are calcifications of the coronary arteries. No pericardial effusion. No signs of right heart strain, ratio of right ventricle to left ventricle measures less than 1. MEDIASTINUM: Unremarkable. No mediastinal or hilar adenopathy. Esophagus is unremarkable. No hiatal hernia. THYROID: Unremarkable. No thyroid lesions. BONES/JOINTS: Total right shoulder arthroplasty. There are degenerative changes of the shoulders. There are multi-level degenerative changes of the thoracic spine. No suspicious lytic or blastic abnormality. KIDNEYS AND URETERS: There are hypodensities in the left kidneys. These are consistent for cysts. No follow up required. CT/CTA Chest W/WO Contrast IMPRESSION: No demonstrated pulmonary embolism or arterial dissection. Electronically Signed: Chalino Reynoso MD at 21:32 EDT ,
[2022-05-30 20:35] VITALS: PULSE 121; RESP 18; O2SAT 97
[2022-05-30 21:15] VITALS: BP 158/68; PULSE 123; RESP 22; TEMP 36.8; O2SAT 96
[2022-05-30 21:56] VITALS: BP 131/61; PULSE 121; RESP 23; TEMP 36.7; O2SAT 97
[2022-05-30 21:57] VITALS: BMI 46.2
--- NOTE | 2022-05-30 22:14 | ECHOCS_ITS ---
Reason For Study: NSTEMI Procedure This was a 2D Doppler, Color Flow transthoracic echocardiogram. The study was technically difficult. Due to body habitus. Contrast injection was performed. Exam performed portable in ICU/CCU. Left Ventricle Normal LV size. Moderate concentric left ventricular hypertrophy. Left ventricular systolic function is normal. The estimated ejection fraction is 65 %. Stage 1 diastolic dysfunction. No regional wall motion abnormalities noted. Right Ventricle Normal RV size. Normal systolic function. Atria The left atrium is moderately enlarged. Normal right atrium. Mitral Valve There is moderate mitral annular calcification. Tricuspid Valve Normal tricuspid valve. Mild (1+) tricuspid valve insufficiency. Pulmonary artery systolic pressure is 37 mmHg. Aortic Valve Trisinus/trileaflet aortic valve. Mild focal aortic valve calcification. Mild aortic stenosis. Pulmonic Valve Normal pulmonic valve. Great Vessels Mildly dilated aortic root. The pulmonary artery is normal size. Normal inferior vena cava. Pericardium/Pleural No pericardial effusion. Medication Diluted definity 3.0ml given slow IV push to enhance endocardial definition. MMode/2D Measurements & Calculations LVIDd: 4.7 cm IVSd: 1.4 cm Ao root diam: 3.9 cm LVIDs: 2.7 cm LVPWd: 1.4 cm RVDd: 3.4 cm FS: 43.1 % LAV(MOD-bp): 86.1 ml LA A4 area: 24.4 cm2 LA dimension(2D): 5.0 cm LAV(MOD-bp) Indexed: 38.8 ml/m2 LAV(MOD-sp2): 74.0 ml LAV(MOD-sp4): 83.0 ml RA A4 area: 19.5 cm2 Time Measurements MV dec time: 0.21 sec Doppler Measurements & Calculations MV E max lexa: 109.5 cm/sec Lat Peak E' Lexa: 9.2 cm/sec Med Peak E' Lexa: 9.1 cm/sec MV A max lexa: 125.9 cm/sec E/E' lat: 11.8 E/E' med: 12.1 MV E/A: 0.87 MV dec slope: 534.7 cm/sec2 Ao V2 max: 169.8 cm/sec LV V1 max: 110.4 cm/sec Ao max P.6 mmHg LV V1 max P.9 mmHg Ao V2 mean: 114.9 cm/sec LV V1 mean P.4 mmHg Ao mean P.9 mmHg LV V1 mean: 72.8 cm/sec Ao V2 VTI: 35.3 cm LV V1 VTI: 22.7 cm AV (velocity ratio): 0.64 PA V2 max: 119.6 cm/sec TR max lexa: 286.6 cm/sec TR max P.9 mmHg ECHO/Echo Complete W/ Contrast Interpretation Summary Normal LV size. Moderate concentric left ventricular hypertrophy. Left ventricular systolic function is normal. The estimated ejection fraction is 65 %. Stage 1 diastolic dysfunction. The left atrium is moderately enlarged. There is moderate mitral annular calcification. Ordering Physician: Des Camilo Referring Physician: Chay Solis Performed By: Razia Kerr, CINDY, RVT
--- NOTE | 2022-05-30 22:14 | EKG12_ITS ---
Test Reason : FALL Blood Pressure : / mmHG Vent. Rate : 104 BPM Atrial Rate : 104 BPM P-R Int : 176 ms QRS Dur : 134 ms QT Int : 382 ms P-R-T Axes : 059 007 017 degrees QTc Int : 502 ms Sinus tachycardia Right bundle branch block Possible Inferior infarct , age undetermined Abnormal ECG Confirmed by JESSE GEORGE, GENESIS ([id number]), graphics editor ELIAS MIDDLETON ([id number]) on 06/02/2022 9:26:18 AM Referred By: Confirmed By:GENESIS MOLINA MD
[2022-05-30] MEDS: 0.9% Saline Lock 10 ML Syringe IV (23:48)
[2022-05-30] MEDS: Pramipexole Di-HCl 0.5 MG Tablet PO (23:49)
[2022-05-30] MEDS: Magnesium Sulfate 4gm/100mL 4 GM/100 ML IV.SOLN. IV (23:50)
[2022-05-30] MEDS: Potassium Chloride 10mEq/100mL 10 MEQ/100 ML IV.SOLN. 100 MEQ IV BOLUS (23:52)
[2022-05-30] MEDS: Enoxaparin 120 MG/0.8 ML Syringe SC (23:55)
[2022-05-31] VITALS (13 sets, daily range): BP systolic 137–161; BP diastolic 66–91; PULSE 68–698; RESP 16–24; TEMP 36.1–36.6; O2SAT 91–100
[2022-05-31 00:29] LABS: Troponin-I HS 1540 pg/mL (3.0-54.0)
[2022-05-31] MEDS: Potassium Chloride 10mEq/100mL 10 MEQ/100 ML IV.SOLN. 100 MEQ IV BOLUS ×3 (01:19→05:01)
[2022-05-31 04:39] LABS: Absolute Lymphocyte Count 0.96 X10^3/uL (0.83-4.51); Basophil# 0.03 X10^3/uL; Basophil% 0.4 % (0-1); Eosinophil# 0.08 X10^3/uL; Eosinophils% 1.2 % (0-5); Hematocrit 33.8 % (37-47); Hemoglobin 10.6 g/dL (12.0-15.0); Lymphocyte # 0.96 X10^3/ul (0.83-4.51); Lymphocyte % 14.3 % (19-41); Mean Corp Hgb Conc 31.4 g/dL (32-36); Mean Corpuscular Volume 89.2 fL (81-99); Mean Platelet Vol. 9.6 fl (6.2-12.0); Monocyte# 0.62 X10^3/uL; Monocyte% 9.2 % (0-10); NRBC Flagged by Analyzer 0 % (0-5); Neutrophil # 5.03 X10^3/uL (2.7-7.7); Neutrophil % 74.8 % (47-70); Platelet Count 207 K/mm3 (150-450); RBC Distribution Width CV 14.8 % (11.6-14.6); Red Blood Count 3.79 M/mm3 (4.2-5.4); White Blood Count 6.7 K/mm3 (4.4-11.0)
[2022-05-31 04:58] LABS: Anion Gap 5 (5-15); BUN 13 mg/dL (7-18); BUN/Creat Ratio 24.4 RATIO (10-20); Calcium,Total 8.7 mg/dL (8.5-10.1); Chloride 105 mmol/L (98-107); Cholesterol 146 mg/dL (200); Creatinine, Serum 0.53 mg/dL (0.55-1.02); EST Glomerular Filtration Rate 117 mL/min (>60); Est Glom Filt Rate - Afr Amer 142 mL/min (>60); Estimated Creatinine Clearance 38.75 ml/min; Glucose 103 mg/dL (74-106); High Density Lipoprotein 53 mg/dL; Potassium 3.1 mmol/L (3.5-5.1); Sodium Level 139 mmol/L (136-145); Triglycerides 64 mg/dL; Very Low Density Lipoprotein 13 mg/dL (5-40)
[2022-05-31 05:00] LABS: Troponin-I HS 1494 pg/mL (3.0-54.0)
[2022-05-31] MEDS: 0.9% Saline Lock 10 ML Syringe IV (05:01)
--- NOTE | 2022-05-31 06:18 | PCM.CONS.C ---
Assessment & Plan Assessment/Plan (1) Elevated troponin: PLAN: Patient presented to the emergency room with a near fall with no cardiac symptoms. EKG had demonstrated sinus tachycardia and a right bundle branch block. I did order a CTA to exclude pulmonary embolism which was normal. Due to the elevated cardiac enzymes we will recommend that we obtain an echocardiogram to assess her ventricular function to look for wall motion abnormalities. Patient has hitherto not had any cardiac problems. Due to the level of the troponin I would recommend that we proceed with a left heart catheterization after electrolyte abnormalities have been corrected.. the above was discussed with the patient who understands and agrees to proceed.. In the meantime we will continue aspirin Mobile low-dose beta-darion Continue ARB without diuretic High intensity statin HPI Consult Data Date of Consult: 05/31/22 HPI Narrative HPI Narrative: ELÍAS AHN, is a 81 F who presents to the emergency room due to weakness and a near fall. This happened while she was trying to get in her truck. She presented to the emergency room she had no cardiac complaints she was noted to have sinus tachycardia with a right bundle branch block cardiac enzymes were obtained and were noted to be abnormal and cardiology was called for further evaluation and management. She denies any neck arm or jaw discomfort suggest angina she had mild dizziness no diaphoresis no near syncope or syncope. She does have a previous history of hypertension as well as orthopedic problems. ON LICENSE OF [facility] Medical History Congestive heart failure (CHF) Hypertension Restless leg syndrome Home Medications calcium carbonate 600 mg calcium (1,500 mg) tablet 600 mg PO DAILY Check with primary doctor 01/14/15 [History Last Taken Unknown] multivitamin 1 tab PO DAILY Check with primary doctor 01/14/15 [History Last Taken Unknown] losartan 100 mg-hydrochlorothiazide 25 mg tablet 1 tab PO DAILY blood pressure 02/12/20 [History Last Taken Unknown] paroxetine HCl 40 mg tablet 1 ea PO DAILY Check with primary doctor 02/12/20 [History Last Taken Unknown] apixaban 5 mg tablet (Eliquis) 5 mg PO BID blood clot 05/30/22 [History Last Taken Unknown] latanoprost 0.005 % eye drops 1 drp EACH EYE DAILY glacoma 05/30/22 [History Last Taken Unknown] pantoprazole 40 mg tablet,delayed release 40 mg PO DAILY Check with primary doctor 05/30/22 [History Last Taken Unknown] pramipexole 0.5 mg tablet 0.5 mg PO BID restless leg 05/30/22 [History Last Taken Unknown] tramadol 50 mg tablet 50 mg PO Q12H pain 05/30/22 [History Last Taken Unknown] furosemide 40 mg tablet 40 mg PO DAILY Leg Swelling 05/31/22 [History Last Taken Unknown] Allergy/AdvReac Type Severity Reaction Status Date / Time Penicillins [PCN] Allergy Hives Verified 05/30/22 16:24 Family History Other COPD (chronic obstructive pulmonary disease) Hypertension Surgical History History of right hip replacement History of right shoulder replacement History of total left hip replacement History of total left knee replacement History of total replacement of left shoulder joint Status post right partial knee replacement Social History Smoking Status: Never smoker ROS Constitutional Constitutional: Denies fever(s) or weight loss Eyes Eyes: Reports systems reviewed and no addt'l complaints, except as documented ENT HEENT: Reports systems reviewed and no addt'l complaints, except as documented Cardiovascular Cardiovascular: Denies chest pain at rest, chest pain with activity, dyspnea at rest, dyspnea on exertion, edema, palpitations or paroxysmal nocturnal dyspnea Respiratory/Chest Respiratory/Chest: Denies dyspnea on exertion, productive cough, shortness of breath at rest or shortness of breath with exertion Gastrointestinal Gastrointestinal: Denies change in bowel habits, nausea, vomiting or weight changes Genitourinary Genitourinary: Denies difficulty urinating Musculoskeletal Musculoskeletal: Denies joint stiffness or muscle weakness Integumentary Integumentary: Denies lesions Neurologic Neurologic: Denies dizziness or syncope Psychiatric Psychiatric: Denies anxiety Endocrine Endocrinology: Denies excessive sweating or fatigue Hematologic/Lymphatic Hematologic/Lymphatic: Denies anemia Allergic/Immunologic Allergic/Immunologic: Denies seasonal rhinorrhea Physical Exam Const alert, oriented x3 and no apparent distress General Appearance: cooperative HEENT hearing grossly normal bilaterally Head and Scalp: atraumatic Eyes EOMs intact bilaterally Neck General: normal visual inspection Chest inspection of chest normal and palpation of chest normal Resp normal respiratory effort Auscultation: clear to auscultation bilaterally Cardio regular rate, regular rhythm, S1 normal heart sound and S2 normal heart sound Jugular Venous Distention: JVD GI normal to inspection, nondistended, normoactive bowel sounds Extremity normal capillary refill and no pedal edema Peripheral Pulses: Yes pulses 2+ throughout and femoral pulses present Skin no rashes or lesions noted Neuro oriented x3 and CN's II-XII intact bilaterally Psych Appearance: grossly normal and appropriate Risk Stratification Risk Stratification Applicable: Yes Age >/= 65: Yes >/= 3 CAD Risk Factors (HTN, HLD, DM, family hx of CAD, or current smoker): No Aspirin Use in the Past 7 Days: No Severe Angina (>/= episodes in 24 hours): No EKG ST Changes >/= 0.5mm: No Positive Cardiac Marker: Yes KELLEN Risk Stratification Score: 2 KELLEN % Risk: 8% Risk Objective Data Vital Signs: Vital Signs Temp Pulse Resp BP Pulse Ox O2 Del Method O2 Flow Rate 97.7 F L 96 18 140/66 H 97 Nasal Cannula 2 05/31/22 04:00 05/31/22 04:00 05/31/22 04:00 05/31/22 04:00 05/31/22 04:00 05/31/22 04:00 05/31/22 04:00 Oxygen Flow Rate (L/min) 2 Oxygen Delivery Method Nasal Cannula Weight: 269 lb 2.951 oz Body Mass Index (BMI) 46.2 Intake & Output: Intake and Output for Last 24 Hours 05/29/22 05/30/22 05/31/22 23:59 23:59 23:59 Intake Total 500 / 500 Balance 500 / 500 Lab / Micro Data Result Diagrams: 05/31/22 04:30 05/31/22 04:30 Labs: Laboratory Results - last 24 hr 05/30/22 16:35: Urine Color Yellow, Urine Clarity Clear, Urine pH 7.0, Ur Specific Art[place] 1.010, Urine Protein 15 H, Urine Glucose (UA) Normal, Urine Ketones 50 H, Urine Occult Blood 10 H, Urine Nitrite Negative, Urine Bilirubin Negative, Urine Urobilinogen Normal, Ur Leukocyte Esterase Negative, Urine RBC 0 SEEN, Urine WBC 0-5 SEEN, Ur Squamous Epith Cells 0 SEEN, Urine Bacteria 0 SEEN, Urine Mucus 0 SEEN 05/30/22 18:35: WBC 8.8, RBC 4.30, Hgb 12.1, Hct 38.1, MCV 88.6, MCH 28.1, MCHC 31.8 L, RDW Std Deviation 47.8 H, RDW Coeff of Beth 14.6, Plt Count 228, MPV 9.9, Immature Gran % (Auto) 0.100, Neut % (Auto) 85.2 H, Lymph % (Auto) 8.2 L, Grant % (Auto) 6.0, Eos % (Auto) 0.2, Baso % (Auto) 0.3, Absolute Neuts (auto) 7.5, Absolute Lymphs (auto) 0.72 L, Nucleated RBC % 0 05/30/22 18:35: Sodium 138, Potassium 2.9 L, Chloride 102, Carbon Dioxide 30.0, Anion Gap 6, BUN 13, Creatinine 0.65, Est GFR (MDRD) Af Amer 113, Est GFR (MDRD) Non-Af 94, BUN/Creatinine Ratio 20.1 H, Glucose 96, Calcium 9.1, Troponin I High Sens 690 H* 05/30/22 18:35: Magnesium 1.2 L 05/30/22 23:45: Troponin I High Sens 1540 H* 05/31/22 04:30: WBC 6.7, RBC 3.79 L, Hgb 10.6 L, Hct 33.8 L, MCV 89.2, MCH 28.0, MCHC 31.4 L, RDW Std Deviation 48.0 H, RDW Coeff of Beth 14.8 H, Plt Count 207, MPV 9.6, Immature Gran % (Auto) 0.100, Neut % (Auto) 74.8 H, Lymph % (Auto) 14.3 L, Grant % (Auto) 9.2, Eos % (Auto) 1.2, Baso % (Auto) 0.4, Absolute Neuts (auto) 5.0, Absolute Lymphs (auto) 0.96, Nucleated RBC % 0 05/31/22 04:30: Sodium 139, Potassium 3.1 L, Chloride 105, Carbon Dioxide 29.0, Anion Gap 5, BUN 13, Creatinine 0.53 L, Estim Creat Clear Calc 38.75, Est GFR (MDRD) Af Amer 142, Est GFR (MDRD) Non-Af 117, BUN/Creatinine Ratio 24.4 H, Glucose 103, Calcium 8.7, Triglycerides 64, Cholesterol 146, LDL Cholesterol 80, VLDL Cholesterol 13, HDL Cholesterol 53 05/31/22 04:30: Vitamin D 25-Hydroxy 40.0 05/31/22 04:30: Troponin I High Sens 1494 H* Cardiology Labs/Tests 05/30/22 16:35: Urine Color Yellow, Urine Clarity Clear, Urine pH 7.0, Ur Specific Artemas 1.010, Urine Protein 15 H, Urine Glucose (UA) Normal, Urine Ketones 50 H, Urine Occult Blood 10 H, Urine Nitrite Negative, Urine Bilirubin Negative, Urine Urobilinogen Normal, Ur Leukocyte Esterase Negative, Urine RBC 0 SEEN, Urine WBC 0-5 SEEN 05/30/22 18:35: WBC 8.8, RBC 4.30, Hgb 12.1, Hct 38.1, MCV 88.6, MCH 28.1, MCHC 31.8 L, Plt Count 228, MPV 9.9, Immature Gran % (Auto) 0.100, Neut % (Auto) 85.2 H, Lymph % (Auto) 8.2 L, Grant % (Auto) 6.0, Eos % (Auto) 0.2, Baso % (Auto) 0.3, Absolute Neuts (auto) 7.5, Nucleated RBC % 0 05/30/22 18:35: Sodium 138, Potassium 2.9 L, Chloride 102, Carbon Dioxide 30.0, Anion Gap 6, BUN 13, Creatinine 0.65, Est GFR (MDRD) Af Amer 113, Est GFR (MDRD) Non-Af 94, BUN/Creatinine Ratio 20.1 H, Glucose 96, Calcium 9.1 05/30/22 18:35: Magnesium 1.2 L 05/31/22 04:30: WBC 6.7, RBC 3.79 L, Hgb 10.6 L, Hct 33.8 L, MCV 89.2, MCH 28.0, MCHC 31.4 L, Plt Count 207, MPV 9.6, Immature Gran % (Auto) 0.100, Neut % (Auto) 74.8 H, Lymph % (Auto) 14.3 L, Grant % (Auto) 9.2, Eos % (Auto) 1.2, Baso % (Auto) 0.4, Absolute Neuts (auto) 5.0, Nucleated RBC % 0 05/31/22 04:30: Sodium 139, Potassium 3.1 L, Chloride 105, Carbon Dioxide 29.0, Anion Gap 5, BUN 13, Creatinine 0.53 L, Est GFR (MDRD) Af Amer 142, Est GFR (MDRD) Non-Af 117, BUN/Creatinine Ratio 24.4 H, Glucose 103, Calcium 8.7, Triglycerides 64, Cholesterol 146, LDL Cholesterol 80, VLDL Cholesterol 13, HDL Cholesterol 53 Rhythm: EKG: ECHO: Stress Test: Cardiac Cath: PCI: CT Surgery: Holter monitor: EPS: PPM: CXR: Chest CT Scan: Radiography Diagnostic Testing: Radiology Impression Ankle X-Ray 05/30/22 19:00 IMPRESSION: There is soft tissue swelling. Electronically Signed: Chalino Reynoso MD at 19:46 EDT , Chest X-Ray 05/30/22 19:00 IMPRESSION: There are no acute findings. Electronically Signed: Chalino Reynoso MD at 19:46 EDT , Knee X-Ray 05/30/22 19:00 IMPRESSION: There are no acute findings. 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 Electronically Signed: Chalino Reynoso MD at 19:47 EDT , Chest CTA 05/30/22 20:27 IMPRESSION: No demonstrated pulmonary embolism or arterial dissection. Electronically Signed: Chalino Reynoso MD at 21:32 EDT ,
--- NOTE | 2022-05-31 07:06 | PN.HOSP_ITS ---
Reason for Visit Reason for Visit: Diagnoses Weakness (05/30/22) Other specified abnormalities of plasma proteins (05/30/22) Unspecified fall, initial encounter (05/30/22) Subjective Subjective No chest pain. No SOB. Objective Data Objective Data Vital Signs: Vital Signs Temp Pulse Resp BP Pulse Ox O2 Del Method O2 Flow Rate 36.5 C L 96 18 140/66 H 97 Nasal Cannula 2 05/31/22 04:00 05/31/22 04:00 05/31/22 04:00 05/31/22 04:00 05/31/22 04:00 05/31/22 04:00 05/31/22 04:00 Oxygen Flow Rate (L/min) 2 Oxygen Delivery Method Nasal Cannula Weight: 122.1 kg Body Mass Index (BMI) 46.2 Intake & Output: Intake and Output for Last 24 Hours 05/29/22 05/30/22 05/31/22 23:59 23:59 23:59 Intake Total 500 / 500 Balance 500 / 500 Lab / Micro Data Result Diagrams: 05/31/22 04:30 05/31/22 04:30 Labs: Laboratory Results - last 24 hr 05/30/22 16:35: Urine Color Yellow, Urine Clarity Clear, Urine pH 7.0, Ur Specific [place] 1.010, Urine Protein 15 H, Urine Glucose (UA) Normal, Urine Ke tones 50 H, Urine Occult Blood 10 H, Urine Nitrite Negative, Urine Bilirubin Negative, Urine Urobilinogen Normal, Ur Leukocyte Esterase Negative, Urine RBC 0 SEEN, Urine WBC 0-5 SEEN, Ur Squamous Epith Cells 0 SEEN, Urine Bacteria 0 SEEN, Urine Mucus 0 SEEN 05/30/22 18:35: WBC 8.8, RBC 4.30, Hgb 12.1, Hct 38.1, MCV 88.6, MCH 28.1, MCHC 31.8 L, RDW Std Deviation 47.8 H, RDW Coeff of Beth 14.6, Plt Count 228, MPV 9.9, Immature Gran % (Auto) 0.100, Neut % (Auto) 85.2 H, Lymph % (Auto) 8.2 L, Sherman % (Auto) 6.0, Eos % (Auto) 0.2, Baso % (Auto) 0.3, Absolute Neuts (auto) 7.5, Absolute Lymphs (auto) 0.72 L, Nucleated RBC % 0 03/27/23 18:35: Sodium 138, Potassium 2.9 L, Chloride 102, Carbon Dioxide 30.0, Anion Gap 6, BUN 13, Creatinine 0.65, Est GFR (MDRD) Af Amer 113, Est GFR (MDRD) Non-Af 94, BUN/Creatinine Ratio 20.1 H, Glucose 96, Calcium 9.1, Troponin I High Sens 690 H* 05/30/22 18:35: Magnesium 1.2 L 05/30/22 23:45: Troponin I High Sens 1540 H* 05/31/22 04:30: WBC 6.7, RBC 3.79 L, Hgb 10.6 L, Hct 33.8 L, MCV 89.2, MCH 28.0, MCHC 31.4 L, RDW Std Deviation 48.0 H, RDW Coeff of Beth 14.8 H, Plt Count 207, MPV 9.6, Immature Gran % (Auto) 0.100, Neut % (Auto) 74.8 H, Lymph % (Auto) 14.3 L, Sherman % (Auto) 9.2, Eos % (Auto) 1.2, Baso % (Auto) 0.4, Absolute Neuts (auto) 5.0, Absolute Lymphs (auto) 0.96, Nucleated RBC % 0 05/31/22 04:30: Sodium 139, Potassium 3.1 L, Chloride 105, Carbon Dioxide 29.0, Anion Gap 5, BUN 13, Creatinine 0.53 L, Estim Creat Clear Calc 38.75, Est GFR (MDRD) Af Amer 142, Est GFR (MDRD) Non-Af 117, BUN/Creatinine Ratio 24.4 H, Glucose 103, Calcium 8.7, Triglycerides 64, Cholesterol 146, LDL Cholesterol 80, VLDL Cholesterol 13, HDL Cholesterol 53 05/31/22 04:30: Vitamin D 25-Hydroxy 40.0 05/31/22 04:30: Troponin I High Sens 1494 H* Radiography Diagnostic Testing: Radiology Impression Ankle X-Ray 05/30/22 19:00 IMPRESSION: There is soft tissue swelling. Electronically Signed: Chalino Reynoso MD at 19:46 EDT , Chest X-Ray 05/30/22 19:00 IMPRESSION: There are no acute findings. Electronically Signed: Chalino Reynoso MD at 19:46 EDT , Knee X-Ray 05/30/22 19:00 IMPRESSION: There are no acute findings. 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 Electronically Signed: Chalino Reynoso MD at 19:47 EDT , Chest CTA 05/30/22 20:27 IMPRESSION: No demonstrated pulmonary embolism or arterial dissection. Electronically Signed: Chalino Reynoso MD at 21:32 EDT , Physical Exam Const alert and no apparent distress Resp normal respiratory effort, no retractions, no use of accessory muscles and clear to auscultation bilaterally Cardio regular rate, regular rhythm, S1 normal heart sound and S2 normal heart sound GI normal to inspection, nondistended, normoactive bowel sounds, soft to palpation, non-tender and non-distended Extremity normal to inspection Neuro oriented x3 and CN's II-XII intact bilaterally Assessment & Plan Assessment/Plan (1) NSTEMI, initial episode of care: PLAN: Peak troponin at 1540 [place] 1[place] [address] on 05/30 Continue ASA and atorvastatin 40 Seen by cardiology this AM, plan for [facility] Follow up echo (2) Weakness: PLAN: Fall and weakness Knee X-ray with no acute findings. PT and OT to work with patient for training and balance training Tylenol as needed for pain. Case mgmt (3) Hypokalemia: PLAN: Improved slightly with replacement Complicated by hypomagnesemia, which has been replaced Will replace again. PLAN: Plan Chronic conditions: * Hypertension: Blood pressure is stable Trend blood pressures. Continue home blood pressure medications. * h/o VTE: continue apixaban post catheterization DVT prophylaxis: On Eliquis. Charges/Coding Visit Charges Inpatient E&M: 50351 Subs Hosp L2
[2022-05-31] MEDS: Pramipexole Di-HCl 0.5 MG Tablet PO ×2 (09:34→20:36)
[2022-05-31] MEDS: hydroCHLOROthiazide 25 MG Tablet PO (09:35)
[2022-05-31] MEDS: Metoprolol(XL)Succ 25 MG Tablet PO (09:35)
[2022-05-31] MEDS: Potassium Chloride Oral Tablet 20 MEQ 40 MEQ PO ×2 (09:35→17:57)
[2022-05-31] MEDS: Aspirin E.C. 81 MG Tablet PO (09:35)
[2022-05-31] MEDS: Losartan Potassium 100 MG Tablet PO (09:35)
--- NOTE | 2022-05-31 13:48 | CL.D_ITS ---
Patient Name: ELÍAS AHN CATH Study Date: 05/31/2022 Performing: Chao Mendez MD Ht: 64 inches 162.56 cm : 1940 Wt: 269.18 lbs 122.1 kg Age: 81 Gender: female BSA: 2.22 PROCEDURE(S) PERFORMED [id number])[facility] CLINICAL PROFILE AND INDICATIONS Indications: Suspected CAD Heart Failure: None Stress/Imaging Stress/Image Study Performed: No CAD Presentations: No Sxs, no angina. CONCLUSIONS Normal coronary arteries RECOMMENDATIONS Medical therapy DESCRIPTION OF PROCEDURE The patient arrived to the procedure lab. The risks and benefits of the procedure as well as a full description of our services here and current unavailability of surgical backup were fully explained to the patient and/or their significant other prior to the catheterization. The Timeout was completed, verifying the correct patient and procedure. The patient's procedural site was prepped and draped in the usual fashion. Local anesthetic was given subcutaneously to right radial region with Lidocaine 2%. Using a modified Seldinger technique, arterial access was obtained via the right radial artery, a 6Fr sheath was inserted. Right Coronary Artery selective angiography was then performed in multiple views using a 5 Fr. 4.0 Penn catheter. Left Coronary Artery selective angiography was performed in multiple views using a 5 Fr. 4.0 Penn catheter.The arterial sheath was pulled and a TR Band was applied for hemostasis CORONARY ANGIOGRAPHY DOMINANCE: Right Dominant LEFT HEART ASSESSMENT Normal LV wall motion LEFT MAIN: No significant disease noted LEFT ANTERIOR DESCENDING ARTERY: No significant disease noted CIRCUMFLEX ARTERY: No significant disease noted RIGHT CORONARY ARTERY: No significant disease noted COMPLICATIONS No Complications PROCEDURE MEDICATIONS Versed 1 mg IV Fentanyl 50 mcg IV Fentanyl 25 mcg IV Fentanyl 25 mcg IV Versed 1 mg IV Oxygen: 2 L/min via nasal cannula Heparin given IA 05/31/2022 13:18:13 Verapamil 2.5mg, Ntg 200mcgs, 2000 units of Heparin given IA 05/31/2022 13:18:13 SUMMARY OF HEMODYNAMIC DATA Time AIR REST AO 140/80 (107) SA 13:26:34 ECG 13:47:20 13:47:25 Signed By Chao Mendez MD On 05/31/2022 13:47:26 Chao Mendez MD
--- NOTE | 2022-05-31 15:45 | RAD_ITS ---
INDICATION: Pain, fall -- Portable EXAMINATION/TECHNIQUE: X-RAY - RIGHT XR Tibia/Fibula 3 VIEWS COMPARISON: None. FINDINGS: SOFT TISSUES: There is diffuse subcutaneous edema without subcutaneous gas. No radiopaque foreign body. BONES/JOINTS: No acute fracture or subluxation. Degenerative changes at the knee.. There is a prosthesis at the medial femorotibial compartment. No sclerotic or destructive changes observed. RAD/Tibia & Fibula 2 Views IMPRESSION: Diffuse subcutaneous edema. Electronically Signed: Ron Palmer DO at 17:06 EDT ,
--- NOTE | 2022-05-31 16:00 | CASEMGMT ---
MIKKI QUINTANILLA Assessment: Face to Face with pt for initial transition planning/care coordination assessment. MIKKI QUINTANILLA introduced self and role at [facility], pt voices understanding and consents to assessment. Pt is A/O x4 and answers all questions appropriately at this time. Pt lying in bed with grandson at bedside. Pt on oxygen in no distress. Pt agreeable to assessment with grandson present. Care providers, pharmacy, and demographics verified/updated. Admitting Dx: NSTEMI PCP:Will Specialists: Paulette, ortho; Ronal, pain mgmt [facility]erred [facility]acy[facility] Insurance: [facility] Prescription Benefit: yes LNOK: Nate Manzanares, son; Candace Sy, friend Living Arrangements: Pt lives alone in a single story home with 2 steps to enter without a rail. Pt reports prior to hospitalization she was I in ADL's. Pt denies concerns at home. Transportation: Pt drives self and denies concerns with transportation. She states pt son transports her to appts. DME/HHC/SNF: Pt has grab bars in her bathroom, shower chair, WW, rollator, w/c and medic alert. Pt has had HHC in the past but is unsure of the name of the agency provided it. Pt has been to [facility] in the past. Pt states no concerns with going home at time of dc. Pt would like to return home. She is interested in HHC. Pt aware we will see how she does with therapy and go from there. Pt states no further concerns/needs. CM to follow. Advised pt to ask CM if any further question/concerns/needs arise, voices understanding. Pt Goal: Home with HHC Plan: Home with HHC, pending progress with therapy
[2022-05-31] MEDS: Latanoprost 0.005% 1 Bottle 1 DRP EACH EYE (17:57)
[2022-05-31] MEDS: Acetaminophen 325 MG Tablet 650 MG PO (20:34)
[2022-05-31] MEDS: Atorvastatin Calcium 40 MG Tablet PO (20:35)
[2022-06-01] VITALS (8 sets, daily range): BP systolic 124–152; BP diastolic 63–77; PULSE 60–86; RESP 18–25; TEMP 36.1–36.6; O2SAT 95–100
--- NOTE | 2022-06-01 02:47 | NURSING ---
pt placed on 2lnc at hs, while sleeping pulse ox dropped to 89%
[2022-06-01 04:26] LABS: Anion Gap 2 (5-15); BUN 12 mg/dL (7-18); BUN/Creat Ratio 19.1 RATIO (10-20); Calcium,Total 9.1 mg/dL (8.5-10.1); Chloride 108 mmol/L (98-107); Creatinine, Serum 0.63 mg/dL (0.55-1.02); EST Glomerular Filtration Rate 97 mL/min (>60); Est Glom Filt Rate - Afr Amer 117 mL/min (>60); Estimated Creatinine Clearance 38.75 ml/min; Glucose 103 mg/dL (74-106); Potassium 4.2 mmol/L (3.5-5.1); Sodium Level 140 mmol/L (136-145)
[2022-06-01] MEDS: Acetaminophen 325 MG Tablet 650 MG PO (05:21)
--- NOTE | 2022-06-01 07:00 | PN.HOSP_ITS ---
Reason for Visit Reason for Visit: Diagnoses Hypokalemia (05/30/22) Non-ST elevation (NSTEMI) myocardial infarction (05/30/22) Weakness (05/30/22) Other specified abnormalities of plasma proteins (05/30/22) Unspecified fall, initial encounter (05/30/22) Subjective Subjective Still with RLE pain. Primarily below knee. Objective Data Objective Data Vital Signs: Vital Signs Temp Pulse Resp BP Pulse Ox O2 Del Method O2 Flow Rate 36.3 C L 66 22 H 152/77 H 95 Nasal Cannula 2 06/01/22 05:00 06/01/22 05:00 06/01/22 05:00 06/01/22 05:00 06/01/22 05:00 06/01/22 05:00 06/01/22 05:00 Oxygen Flow Rate (L/min) 2 Oxygen Delivery Method Nasal Cannula Weight: 122.1 kg Body Mass Index (BMI) 46.2 Intake & Output: Intake and Output for Last 24 Hours 05/30/22 05/31/22 06/01/22 23:59 23:59 23:59 Intake Total 500 / 500 Output Total 0 / 0 Balance 500 / 500 0 / 0 Lab / Micro Data Result Diagrams: 05/31/22 04:30 06/01/22 04:06 Labs: Laboratory Results - last 24 hr 06/01/22 04:06: Sodium 140, Potassium 4.2, Chloride 108 H, Carbon Dioxide 30.0, Anion Gap 2 L, BUN 12, Creatinine 0.63, Estim Creat Clear Calc 38.75, Est GFR (MDRD) Af Amer 117, Est GFR (MDRD) Non-Af 97, BUN/Creatinine Ratio 19.1, Glucose 103, Calcium 9.1 Radiography Diagnostic Testing: Radiology Impression Echocardiogram 05/30/22 22:14 Interpretation Summary Normal LV size. Moderate concentric left ventricular hypertrophy. Left ventricular systolic function is normal. The estimated ejection fraction is 65 %. Stage 1 diastolic dysfunction. The left atrium is moderately enlarged. There is moderate mitral annular calcification. Ordering Physician: Des Camilo Referring Physician: Chay Solis Performed By: Razia Kerr, RDCS, RVT Tibia/Fibula X-Ray 05/31/22 15:45 IMPRESSION: Diffuse subcutaneous edema. Electronically Signed: Ron Palmer DO at 17:06 EDT Reading Location ID and State: [facility] / [place] Tel [phone], Service support , Physical Exam Const alert and no apparent distress HEENT head/scalp atraumatic and moist oral mucous membranes Neck no lymphadenopathy, supple, no JVD and no carotid bruits Resp normal respiratory effort, no retractions, no use of accessory muscles and clear to auscultation bilaterally Cardio regular rate, regular rhythm, S1 normal heart sound and S2 normal heart sound GI normal to inspection, nondistended, normoactive bowel sounds, soft to palpation and non-tender Extremity Extremity Narrative: bilateral edema. TTP edema RLE w/o fluctuance. Neuro Sensorium / Orientation: awake and alert Assessment & Plan Assessment/Plan (1) NSTEMI, initial episode of care: PLAN: Peak troponin at 1540 Continue ASA and atorvastatin 40 LHC showed no significant changes Echo: EF 65% (2) Weakness: PLAN: Fall and weakness Knee X-ray with no acute findings. Tib fib xray without fracture. PT and OT to work with patient for training and balance training Tylenol as needed for pain. Case mgmt (3) Hypokalemia: PLAN: Resolved after replacement (4) Right leg pain: PLAN: States pain was present before fall. Denies actually injuring leg during fall. Xrays negative CT shoed osteopenia. Moderate knee effusion. Diffuse SQ soft tissue and muscular edema. Check CPK (5) Anasarca: PLAN: Echo shows EF 65% add furosemide (6) Osteopenia: PLAN: 25 OH d level Add ergocalciferol PLAN: Plan Chronic conditions: * Hypertension: Blood pressure is stable Trend blood pressures. Continue home blood pressure medications. * h/o VTE: continue apixaban post catheterization DVT prophylaxis: On Eliquis. Charges/Coding Visit Charges Inpatient E&M: 31234 Subs Hosp L2
--- NOTE | 2022-06-01 09:47 | CT_ITS ---
STUDY: CT RIGHT LOWER EXTREMITY WITH CONTRAST REASON FOR EXAM: Female, 81 years old. Right neck pain with edema from months. RADIATION DOSAGE (If Supplied By Facility): CTDIvol = ( 15.35 ) mGy, DLP = ( 788.65 ) mGycm TECHNIQUE contiguous axial images of the right femur/lower extremity were obtained after the intravenous administration of 100 mL of Isovue-370 contrast. Coronal and sagittal and soft tissue and bone algorithm images were provided for interpretation.. 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 Individualized dose optimization techniques were used for this CT. COMPARISON: Right knee x-rays dated May 30, 2022 showing hemiarthroplasty, medial and patellofemoral compartmental arthrosis and joint effusion. FINDINGS: Osteopenia. Moderate arthrosis of the lateral femorotibial and patellofemoral compartments with osteophyte formation. Moderate-sized knee joint effusion. Diffuse subcutaneous soft tissue edema and muscular edema. No focal fluid collections or abnormal enhancing abnormalities. CT/Extremity Lower WITH Contrast IMPRESSION: Osteopenia with metallic artifact from medial hemiarthroplasty. 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 Moderate-sized knee joint effusion. Diffuse subcutaneous soft tissue and muscular edema. No focal fluid collections, ulcerations or abnormal enhancing abnormalities. Electronically Signed: Sachin Warren, at 10:55 EDT ,
[2022-06-01] MEDS: Pantoprazole Sodium 40 MG Tablet PO (10:47)
[2022-06-01] MEDS: Metoprolol(XL)Succ 25 MG Tablet PO (10:48)
[2022-06-01] MEDS: Pramipexole Di-HCl 0.5 MG Tablet PO ×2 (10:48→20:45)
[2022-06-01] MEDS: hydroCHLOROthiazide 25 MG Tablet PO (10:48)
[2022-06-01] MEDS: Multivitamins,Therapeutic Tablet 1 TABLET PO (10:48)
[2022-06-01] MEDS: Losartan Potassium 100 MG Tablet PO (10:48)
[2022-06-01] MEDS: Paroxetine 20 MG Tablet 40 MG PO (10:48)
[2022-06-01] MEDS: Latanoprost 0.005% 1 Bottle 1 DRP EACH EYE (10:49)
[2022-06-01] MEDS: Calcium (Elemental) 500 MG Tablet PO (10:49)
[2022-06-01] MEDS: Aspirin E.C. 81 MG Tablet PO (10:49)
[2022-06-01] MEDS: Nystatin Powder 15gm Bottle 1 APPLIC TOPICAL ×2 (10:50→20:45)
[2022-06-01 11:15] LABS: Absolute Lymphocyte Count 0.76 X10^3/uL (0.83-4.51); Absolute Neutrophil Count 3.9 X10^3/uL (2.0-7.7); Basophil# 0.02 X10^3/uL; Basophil% 0.4 % (0-1); Eosinophil# 0.14 X10^3/uL; Eosinophils% 2.7 % (0-5); Hematocrit 39.1 % (37-47); Hemoglobin 11.6 g/dL (12.0-15.0); Lymphocyte # 0.76 X10^3/ul (0.83-4.51); Lymphocyte % 14.6 % (19-41); Mean Corpuscular Hgb 27.5 pg (27.0-32.0); Mean Corpuscular Volume 92.7 fL (81-99); Monocyte# 0.41 X10^3/uL; Monocyte% 7.9 % (0-10); NRBC Flagged by Analyzer 0 % (0-5); Neutrophil # 3.86 X10^3/uL (2.7-7.7); Platelet Count 208 K/mm3 (150-450); RBC Distribution Width SD 51.4 fl (35.1-43.9); Red Blood Count 4.22 M/mm3 (4.2-5.4); White Blood Count 5.2 K/mm3 (4.4-11.0)
[2022-06-01 11:23] LABS: Mean Corp Hgb Conc 29.7 g/dL (32-36)
[2022-06-01 11:32] LABS: CPK Total, Creatine Kinase 82 U/L (26-192)
[2022-06-01] MEDS: Ergocalciferol 1.25 MG (50, 000 UNIT) Capsule PO (13:18)
[2022-06-01] MEDS: Furosemide 40 MG/4 ML Vial IV (17:27)
[2022-06-01] MEDS: Atorvastatin Calcium 40 MG Tablet PO (20:45)
[2022-06-02] MEDS: Acetaminophen 325 MG Tablet 650 MG PO ×3 (00:21→21:54)
[2022-06-02 02:45] VITALS: BP 131/62; PULSE 76; RESP 18; TEMP 36.3; O2SAT 100
[2022-06-02 05:27] LABS: Anion Gap 4 (5-15); BUN 12 mg/dL (7-18); Calcium,Total 9.1 mg/dL (8.5-10.1); Chloride 102 mmol/L (98-107); Creatinine, Serum 0.63 mg/dL (0.55-1.02); EST Glomerular Filtration Rate 96 mL/min (>60); Est Glom Filt Rate - Afr Amer 116 mL/min (>60); Estimated Creatinine Clearance 38.75 ml/min; Glucose 104 mg/dL (74-106); Potassium 3.7 mmol/L (3.5-5.1); Sodium Level 138 mmol/L (136-145)
--- NOTE | 2022-06-02 07:02 | PCM.PN.HOSP ---
Reason for Visit Reason for Visit: Diagnoses Hypokalemia (05/30/22) Non-ST elevation (NSTEMI) myocardial infarction (05/30/22) Pain in right leg (05/30/22) Other specified disorders of bone density and structure, unspecified site (05/30/22) Weakness (05/30/22) Generalized edema (05/30/22) Other specified abnormalities of plasma proteins (05/30/22) Unspecified fall, initial encounter (05/30/22) Subjective Subjective still with right leg pain, slight improvement. Objective Data Objective Data Vital Signs: Vital Signs Temp Pulse Resp BP Pulse Ox O2 Del Method O2 Flow Rate 36.3 C L 76 18 131/62 H 100 Nasal Cannula 2 06/02/22 02:45 06/02/22 02:45 06/02/22 02:45 06/02/22 02:45 06/02/22 02:45 06/02/22 02:45 06/02/22 02:45 Oxygen Flow Rate (L/min) 2 Oxygen Delivery Method Nasal Cannula Weight: 122.1 kg Body Mass Index (BMI) 46.2 Intake & Output: Intake and Output for Last 24 Hours 05/31/22 06/01/22 06/02/22 23:59 23:59 23:59 Intake Total 500 / 500 600 / 600 300 / 300 Output Total 0 / 600 600 / 600 Balance 500 / 500 600 / 0 -300 / -300 Lab / Micro Data Result Diagrams: 06/01/22 11:00 06/02/22 04:50 Labs: Laboratory Results - last 24 hr 06/01/22 11:00: WBC 5.2, RBC 4.22, Hgb 11.6 L, Hct 39.1, MCV 92.7, MCH 27.5, MCHC 29.7 L D, RDW Std Deviation 51.4 H, RDW Coeff of Beth 15.0 H, Plt Count 208, MPV 10.0, Immature Gran % (Auto) 0.400, Neut % (Auto) 74.0 H, Lymph % (Auto) 14.6 L, Carbon % (Auto) 7.9, Eos % (Auto) 2.7, Baso % (Auto) 0.4, Absolute Neuts (auto) 3.9, Absolute Lymphs (auto) 0.76 L, Nucleated RBC % 0 06/01/22 11:00: Total Creatine Kinase 82 06/02/22 04:50: Sodium 138, Potassium 3.7, Chloride 102, Carbon Dioxide 32.0, Anion Gap 4 L, BUN 12, Creatinine 0.63, Estim Creat Clear Calc 38.75, Est GFR (MDRD) Af Amer 116, Est GFR (MDRD) Non-Af 96, BUN/Creatinine Ratio 19.0, Glucose 104, Calcium 9.1 Radiography Diagnostic Testing: Radiology Impression Lower Extremity CT 06/01/22 09:47 IMPRESSION: Osteopenia with metallic artifact from medial hemiarthroplasty. 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 Moderate-sized knee joint effusion. Diffuse subcutaneous soft tissue and muscular edema. No focal fluid collections, ulcerations or abnormal enhancing abnormalities. Electronically Signed: Sachin Warren, at 10:55 EDT Reading Location ID and State: [facility] / [place] , Service support , Physical Exam Const alert and no apparent distress Resp normal respiratory effort, no retractions, no use of accessory muscles and clear to auscultation bilaterally Cardio regular rate, regular rhythm, S1 normal heart sound and S2 normal heart sound GI normal to inspection, nondistended, normoactive bowel sounds, soft to palpation, non-tender and non-distended Extremity Extremity Narrative: decreased edema in LE. right knee effusion w/o warmth/erythema. Assessment & Plan Assessment/Plan (1) NSTEMI, initial episode of care: PLAN: Type II event Peak troponin at 1540 Continue ASA and atorvastatin 40 [facility] showed no significant changes Echo: EF 65% (2) Weakness: PLAN: Fall and weakness Knee X-ray with no acute findings. Tib fib xray without fracture. Tylenol as needed for pain. Case mgmt Limited mobility. SNF eval. (3) Hypokalemia: PLAN: Resolved after replacement (4) Right leg pain: PLAN: States pain was present before fall. Denies actually injuring leg during fall. Xrays negative CT showed osteopenia. Moderate knee effusion. Diffuse SQ soft tissue and muscular edema. CPK 82, therefore, no rhabdomyolysis (5) Anasarca: PLAN: Echo shows EF 65% add furosemide (6) Osteopenia: PLAN: 25 OH d level 40 Add ergocalciferol PLAN: Plan Chronic conditions: Hypertension: Blood pressure is stable Trend blood pressures. Continue home blood pressure medications. h/o VTE: continue apixaban post catheterization DVT prophylaxis: On Eliquis. Disposition: to SNF pending insurance authorization. Charges/Coding Visit Charges Inpatient E&M: 15094 Subs Hosp L2
[2022-06-02 07:27] VITALS: O2SAT 100
[2022-06-02] MEDS: Furosemide 40 MG/4 ML Vial IV (08:42)
[2022-06-02] MEDS: Paroxetine 20 MG Tablet 40 MG PO (08:42)
[2022-06-02 08:43] VITALS: PULSE 79
[2022-06-02] MEDS: Losartan Potassium 100 MG Tablet PO (08:43)
[2022-06-02] MEDS: Latanoprost 0.005% 1 Bottle 1 DRP EACH EYE (08:43)
[2022-06-02] MEDS: Metoprolol(XL)Succ 25 MG Tablet PO (08:43)
[2022-06-02] MEDS: Pramipexole Di-HCl 0.5 MG Tablet PO ×2 (08:43→21:52)
[2022-06-02] MEDS: Calcium (Elemental) 500 MG Tablet PO (08:44)
[2022-06-02] MEDS: Aspirin E.C. 81 MG Tablet PO (08:44)
[2022-06-02] MEDS: Multivitamins,Therapeutic Tablet 1 TABLET PO (08:44)
[2022-06-02 08:45] VITALS: BP 122/43; PULSE 87; RESP 16; TEMP 37.1; O2SAT 95
--- NOTE | 2022-06-02 10:33 | CASEMGMT ---
Therapy is recommending patient go somewhere for rehab. RITCHIE met with patient. Introduced self and role at [facility]. SW explained recommendation for rehab and patient said she would like to go to [facility] as she lives in [place]. RITCHIE told patient RITCHIE will make a referral. RITCHIE did give patient a list of?fci facility providers including quality and resource use data and consistent with patient?s preferred geographic region, medical needs, and insurance network were provided from the [employer] Guide. RITCHIE told patient RITCHIE will work on the referral and then update patient. RITCHIE sent a referral to [facility] via [employer]. Await response. Monse Akhtar SEISMIC PROSPECTING OBSERVER HELPER ROBEL
[2022-06-02] MEDS: Nystatin Powder 15gm Bottle 1 APPLIC TOPICAL ×2 (11:11→21:52)
[2022-06-02] MEDS: Pantoprazole Sodium 40 MG Tablet PO (11:12)
--- NOTE | 2022-06-02 13:27 | CASEMGMT ---
RITCHIE has not heard from [facility]. RITCHIE called [facility] and left a voice mail for admissions. Await response. Monse Akhtar RN CLINICAL DOCUMENTATION ROBEL
--- NOTE | 2022-06-02 16:03 | CASEMGMT ---
RITCHIE called [facility] and admissions left for the day. RITCHIE called the admissions cell phone and it went right to voice mail. RITCHIE left a message requesting a return call regarding a referral. Monse HUSTON
--- NOTE | 2022-06-02 16:14 | CASEMGMT ---
Social Work SW met with pt and updated that [facility] not yet responded to referral and SW will continue to work on this and will update pt tomorrow. ISSAC Hernandez
--- NOTE | 2022-06-02 16:41 | CASEMGMT ---
Social Work Convalescent 0700 form started in the [employer] system. Awaiting accepting nursing facility in order to complete. Social work following. Plan: Pending SNF placement. -GISEL Gonzales, CAR REPOSSESSOR
[2022-06-02 21:15] VITALS: BP 132/49; PULSE 71; RESP 24; TEMP 36.8; O2SAT 100
[2022-06-02] MEDS: Atorvastatin Calcium 40 MG Tablet PO (21:52)
--- NOTE | 2022-06-02 23:41 | NURSING ---
pt consistently removing tele leads, pulling at chest tube and spo2 sticker.
[2022-06-03] VITALS (8 sets, daily range): BP systolic 92–149; BP diastolic 62–82; PULSE 65–81; RESP 18–20; TEMP 36.3–36.7; O2SAT 95–100
[2022-06-03 04:33] LABS: Anion Gap 4 (5-15); BUN 20 mg/dL (7-18); BUN/Creat Ratio 36.4 RATIO (10-20); Calcium,Total 8.6 mg/dL (8.5-10.1); Chloride 102 mmol/L (98-107); Creatinine, Serum 0.55 mg/dL (0.55-1.02); EST Glomerular Filtration Rate 113 mL/min (>60); Est Glom Filt Rate - Afr Amer 137 mL/min (>60); Estimated Creatinine Clearance 38.75 ml/min; Glucose 113 mg/dL (74-106); Potassium 3.4 mmol/L (3.5-5.1); Sodium Level 140 mmol/L (136-145)
--- NOTE | 2022-06-03 07:21 | PN.HOSP_ITS ---
Reason for Visit Reason for Visit: Diagnoses Hypokalemia (05/30/22) Non-ST elevation (NSTEMI) myocardial infarction (05/30/22) Pain in right leg (05/30/22) Other specified disorders of bone density and structure, unspecified site (05/30/22) Weakness (05/30/22) Generalized edema (05/30/22) Other specified abnormalities of plasma proteins (05/30/22) Unspecified fall, initial encounter (05/30/22) Objective Data Objective Data Vital Signs: Vital Signs Temp Pulse Resp BP Pulse Ox O2 Del Method O2 Flow Rate 36.6 C 65 20 H 149/75 H 99 Nasal Cannula 2 06/03/22 04:08 06/03/22 04:08 06/03/22 04:08 06/03/22 04:08 06/03/22 04:08 06/03/22 04:08 06/03/22 04:08 Oxygen Flow Rate (L/min) 2 Oxygen Delivery Method Nasal Cannula Weight: 122.1 kg Body Mass Index (BMI) 46.2 Intake & Output: Intake and Output for Last 24 Hours 06/01/22 06/02/22 06/03/22 23:59 23:59 23:59 Intake Total 600 / 600 300 / 300 Output Total 0 / 600 600 / 600 Balance 600 / 0 -300 / -300 Lab / Micro Data Result Diagrams: 06/01/22 11:00 06/03/22 04:15 Labs: Laboratory Results - last 24 hr 06/03/22 04:15: Sodium 140, Potassium 3.4 L, Chloride 102, Carbon Dioxide 34.0 H , Anion Gap 4 L, BUN 20 H, Creatinine 0.55, Estim Creat Clear Calc 38.75, Est GFR (MDRD) Af Amer 137, Est GFR (MDRD) Non-Af 113, BUN/Creatinine Ratio 36.4 H, Glucose 113 H, Calcium 8.6 Assessment & Plan Assessment/Plan (1) NSTEMI, initial episode of care: PLAN: Type II event Peak troponin at 1540 Continue ASA and atorvastatin 40 [facility] showed no significant changes Echo: EF 65% (2) Weakness: PLAN: Fall and weakness Knee X-ray with no acute findings. Tib fib xray without fracture. Tylenol as needed for pain. Case mgmt Limited mobility. SNF eval. (3) Hypokalemia: PLAN: Resolved after replacement (4) Right leg pain: PLAN: States pain was present before fall. Denies actually injuring leg during fall. Xrays negative CT showed osteopenia. Moderate knee effusion. Diffuse SQ soft tissue and muscular edema. CPK 82, therefore, no rhabdomyolysis (5) Anasarca: PLAN: Echo shows EF 65% add furosemide (6) Osteopenia: PLAN: 25 OH d level 40 Add ergocalciferol PLAN: Plan Chronic conditions: * Hypertension: Blood pressure is stable Trend blood pressures. Continue home blood pressure medications. * h/o VTE: continue apixaban post catheterization DVT prophylaxis: On Eliquis. Disposition: to SNF pending insurance authorization.
[2022-06-03] MEDS: Potassium Chloride Oral Tablet 20 MEQ 40 MEQ PO (08:30)
[2022-06-03] MEDS: Multivitamins,Therapeutic Tablet 1 TABLET PO (09:00)
[2022-06-03] MEDS: Aspirin E.C. 81 MG Tablet PO (09:00)
[2022-06-03] MEDS: Latanoprost 0.005% 1 Bottle 1 DRP EACH EYE (09:46)
[2022-06-03] MEDS: Pantoprazole Sodium 40 MG Tablet PO (09:47)
[2022-06-03] MEDS: Metoprolol(XL)Succ 25 MG Tablet PO (09:48)
[2022-06-03] MEDS: 0.9% Saline Lock 10 ML Syringe IV (09:50)
[2022-06-03] MEDS: Losartan Potassium 100 MG Tablet PO (09:50)
[2022-06-03] MEDS: Calcium (Elemental) 500 MG Tablet PO (09:50)
[2022-06-03] MEDS: Furosemide 40 MG Tablet PO (09:50)
[2022-06-03] MEDS: Paroxetine 20 MG Tablet 40 MG PO (09:50)
[2022-06-03] MEDS: Pramipexole Di-HCl 0.5 MG Tablet PO (09:50)
[2022-06-03] MEDS: Nystatin Powder 15gm Bottle 1 APPLIC TOPICAL (09:51)
--- NOTE | 2022-06-03 09:58 | CASEMGMT ---
[facility] can take patient. Mirta will start the pre-cert. SW will notify patient. Monse HUSTON
--- NOTE | 2022-06-03 10:06 | CASEMGMT ---
RITCHIE let patient know that [facility] can take her once her insurance approves her. Patient thanked RITCHIE. Monse Akhtar AGRICULTURAL CONSULTANT ROBEL
[2022-06-03] MEDS: Acetaminophen 325 MG Tablet 650 MG PO ×2 (10:38→18:34)
--- NOTE | 2022-06-03 12:48 | CASEMGMT ---
Mirta at [facility] said patient's insurance is asking for a 7000 or PASRR. SW completed PASRR as in order to do 7000 d/c information needs to be attached. Monse Akhtar NEIGHBORHOOD PLANNER ROBEL
--- NOTE | 2022-06-03 12:49 | PCM.PN.HOSP ---
Reason for Visit Reason for Visit: Diagnoses Hypokalemia (05/30/22) Non-ST elevation (NSTEMI) myocardial infarction (05/30/22) Pain in right leg (05/30/22) Other specified disorders of bone density and structure, unspecified site (05/30/22) Weakness (05/30/22) Generalized edema (05/30/22) Other specified abnormalities of plasma proteins (05/30/22) Unspecified fall, initial encounter (05/30/22) Subjective Subjective Still with leg pain. Complaining of redness on LLE. Objective Data Objective Data Vital Signs: Vital Signs Temp Pulse Resp BP Pulse Ox O2 Del Method O2 Flow Rate 36.5 C L 81 20 H 120/67 95 Nasal Cannula 2 06/03/22 10:08 06/03/22 10:08 06/03/22 10:08 06/03/22 10:08 06/03/22 12:29 06/03/22 12:29 06/03/22 12:29 Oxygen Flow Rate (L/min) 2 Oxygen Delivery Method Nasal Cannula Weight: 122.1 kg Body Mass Index (BMI) 46.2 Intake & Output: Intake and Output for Last 24 Hours 06/01/22 06/02/22 06/03/22 23:59 23:59 23:59 Intake Total 600 / 600 300 / 300 Output Total 0 / 600 600 / 600 Balance 600 / 0 -300 / -300 Lab / Micro Data Result Diagrams: 06/01/22 11:00 06/03/22 04:15 Labs: Laboratory Results - last 24 hr 06/03/22 04:15: Sodium 140, Potassium 3.4 L, Chloride 102, Carbon Dioxide 34.0 H, Anion Gap 4 L, BUN 20 H, Creatinine 0.55, Estim Creat Clear Calc 38.75, Est GFR (MDRD) Af Amer 137, Est GFR (MDRD) Non-Af 113, BUN/Creatinine Ratio 36.4 H, Glucose 113 H, Calcium 8.6 Physical Exam Const alert and no apparent distress HEENT head/scalp atraumatic and moist oral mucous membranes Resp normal respiratory effort, no retractions, no use of accessory muscles and clear to auscultation bilaterally Cardio regular rate, regular rhythm, S1 normal heart sound and S2 normal heart sound GI normal to inspection, nondistended, normoactive bowel sounds, soft to palpation and non-tender Extremity Extremity Narrative: edema LLE. erythema of BLE. no significant warmth. Assessment & Plan Assessment/Plan (1) NSTEMI, initial episode of care: PLAN: Type II event Peak troponin at 1540 Continue ASA and atorvastatin 40 [facility] showed no significant changes Echo: EF 65% (2) Weakness: PLAN: Fall and weakness Knee X-ray with no acute findings. Tib fib xray without fracture. Tylenol as needed for pain. Case mgmt Limited mobility. SNF eval. (3) Hypokalemia: PLAN: Resolved after replacement (4) Right leg pain: PLAN: States pain was present before fall. Denies actually injuring leg during fall. Xrays negative CT showed osteopenia. Moderate knee effusion. Diffuse SQ soft tissue and muscular edema. CPK 82, therefore, no rhabdomyolysis (5) Anasarca: PLAN: Echo shows EF 65% add furosemide (6) Osteopenia: PLAN: 25 OH d level 40 Add ergocalciferol PLAN: Plan Chronic conditions: Hypertension: Blood pressure is stable Trend blood pressures. Continue home blood pressure medications. h/o VTE: continue apixaban post catheterization DVT prophylaxis: On Eliquis. Disposition: to [facility] pending insurance authorization. Charges/Coding Visit Charges Inpatient E&M: 94753 Subs Hosp L2
--- NOTE | 2022-06-03 16:13 | TREXTCAR_ITS ---
Diet Diet Order/Speech Therapy: 05/31/22 15:27 Diet: Cardiac - Heart Healthy Is pt able to select menu?: Yes Diet Comments: Except meds and sips Wound(s) right pimentel: Wound Type: Abrasion left pimentel: Wound Type: Skin Tear left knee: Wound Type: Abrasion lfa: Wound Type: Skin Tear Therapies Weight Bearing: Weight bearing as tolerated Extremity Affected:: Right Lower Physical Therapy: Eval and Treat Occupational Therapy: Eval and Treat Problem/Diagnosis (1) NSTEMI, initial episode of care: Status: Acute Code(s): I21.4 - Non-ST elevation (NSTEMI) myocardial infarction Plan: Type II event Peak troponin at 1540 Continue ASA and atorvastatin 40 LHC showed no significant changes Echo: EF 65% (2) Weakness: Status: Acute Code(s): R53.1 - Weakness Plan: Fall and weakness Knee X-ray with no acute findings. Tib fib xray without fracture. Tylenol as needed for pain. Case mgmt Limited mobility. SNF eval. (3) Hypokalemia: Status: Acute Code(s): E87.6 - Hypokalemia Plan: Resolved after replacement (4) Right leg pain: Status: Acute Code(s): M79.604 - Pain in right leg Plan: States pain was present before fall. Denies actually injuring leg during fall. Xrays negative CT showed osteopenia. Moderate knee effusion. Diffuse SQ soft tissue and muscular edema. CPK 82, therefore, no rhabdomyolysis (5) Anasarca: Status: Acute Code(s): R60.1 - Generalized edema Plan: Echo shows EF 65% add furosemide (6) Osteopenia: Status: Acute Code(s): M85.80 - Other specified disorders of bone density and structure, unspecified site Plan: 25 OH d level 40 Add ergocalciferol Plan Chronic conditions: * Hypertension: Blood pressure is stable Trend blood pressures. Continue home blood pressure medications. * h/o VTE: continue apixaban post catheterization DVT prophylaxis: On Eliquis. Disposition: to SNF pending insurance authorization. Allergies/Procedures Done in Hospital Allergies Penicillins [PCN] Allergy (Verified 05/30/22 16:24) Hives Procedures: 2-D Echocardiogram and Cardiac catheterization Type of Care/Length of Stay Estimated LOS: Convalescent Care Less Than 30 days Type of Care Needed: Skilled Rehab Potential: Fair Prognosis: Good Additional Orders/Day of Discharge Day of Discharge: 06/03/22 Dietary and Speech Recommendations Dietitian Recommendations/Changes: Recommend diet as tolerated to Cardiac. ONS not indicated at this time. Diet instruction as pt willing; consider supportive weight loss with [facility] Why Weight Program. Discharge Plan Admission Admit Date/Time: 05/30/22 19:48 Primary Reason for Your Visit: myocardial infarction Attending Provider: Robbie Ely Primary Care Provider: Chay Solis Consulting Providers: Chao Mendez ; Des Camilo Discharge Orders/Prescriptions Prescriptions: New aspirin 81 mg Tablet,Delayed Release (Dr/Ec) 81 mg PO BREAKFAST Qty: 0 0RF atorvastatin 40 mg Tablet 40 mg PO QHS Qty: 0 0RF ergocalciferol (vitamin D2) [Vitamin D2] 1,250 mcg (50,000 unit) Capsule 1,250 mcg PO Q7D 49 Days Qty: 7 0RF metoprolol succinate 25 mg Tablet Extended Release 24 Hr 25 mg PO DAILY Qty: 0 0RF nystatin [Nyamyc] 100,000 unit/gram Powder 1 applic topical BID Qty: 0 0RF Protocol: *Topical Application Instructions APPLICATION INSTRUCTIONS: Under bilateral breasts and groin oxycodone 5 mg capsule 5 mg PO Q6H PRN (Reason: pain) 3 Days Qty: 12 0RF Continued paroxetine HCl 40 mg tablet 1 ea PO DAILY Label Comments: take 1 tablet by mouth once daily losartan-hydrochlorothiazide 100-25 mg tablet 1 tab PO DAILY multivitamin 1 EACH tablet 1 tab PO DAILY Label Comments: supplement calcium carbonate 600 MG tablet 600 mg PO DAILY Label Comments: supplement latanoprost 0.005 % drops 1 drp EACH EYE DAILY Label Comments: place 1 drop into both eyes every evening pramipexole 0.5 mg tablet 0.5 mg PO BID Label Comments: take 2 tablets by mouth at bedtime pantoprazole 40 mg tablet,delayed release (DR/EC) 40 mg PO DAILY Label Comments: take 1 tablet by mouth once daily Eliquis 5 mg tablet 5 mg PO BID Label Comments: take 1 tablet by mouth twice a day furosemide 40 mg Tablet 40 mg PO DAILY Discontinued tramadol 50 mg tablet 50 mg PO Q12H Referrals / Follow Up: [facility] [Provider Group] - Within 3 Months Chay Solis MD [Primary Care Provider] - Within 2 Weeks Disposition Disposition (needs filled in before D/C Order can be placed): Care Home Facility
--- NOTE | 2022-06-03 16:19 | DS.PCM_ITS ---
Providers Date of Admission: 05/30/22 Primary Care Physician: Dr. Chay Solis MD Consultations 05/30/22 22:14 Consult: Cardiology Routine Consulting Provider: Chao Mendez Reason for Consult: Chest Pain EMERGENT Consult: No MD Notified: Yes Date Notified: 05/30/22 Time Notified: 19:57 Method of Notification: ED Physician Initiated Reason For Visit: NSTEMI Diagnosis Discharge Diagnosis (1) NSTEMI, initial episode of care: Status: Acute Code(s): I21.4 - Non-ST elevation (NSTEMI) myocardial infarction Plan: Type II event Peak troponin at 1540 Continue ASA and atorvastatin 40 LHC showed no significant changes Echo: EF 65% (2) Weakness: Status: Acute Code(s): R53.1 - Weakness Plan: Fall and weakness Knee X-ray with no acute findings. Tib fib xray without fracture. Tylenol as needed for pain. Case mgmt Limited mobility. SNF eval. (3) Hypokalemia: Status: Acute Code(s): E87.6 - Hypokalemia Plan: Resolved after replacement (4) Right leg pain: Status: Acute Code(s): M79.604 - Pain in right leg Plan: States pain was present before fall. Denies actually injuring leg during fall. Xrays negative CT showed osteopenia. Moderate knee effusion. Diffuse SQ soft tissue and muscular edema. CPK 82, therefore, no rhabdomyolysis (5) Anasarca: Status: Acute Code(s): R60.1 - Generalized edema Plan: Echo shows EF 65% add furosemide (6) Osteopenia: Status: Acute Code(s): M85.80 - Other specified disorders of bone density and structure, unspecified site Plan: 25 OH d level 40 Add ergocalciferol Plan Chronic conditions: * Hypertension: Blood pressure is stable Trend blood pressures. Continue home blood pressure medications. * h/o VTE: continue apixaban post catheterization DVT prophylaxis: On Eliquis. Disposition: to SNF pending insurance authorization. Medications at Discharge Home Medications calcium carbonate 600 mg calcium (1,500 mg) tablet 600 mg PO DAILY Check with p rimary doctor 01/14/15 multivitamin 1 tab PO DAILY Check with primary doctor 01/14/15 losartan 100 mg-hydrochlorothiazide 25 mg tablet 1 tab PO DAILY blood pressure 02/12/20 paroxetine HCl 40 mg tablet 1 ea PO DAILY Check with primary doctor 02/12/20 apixaban 5 mg tablet (Eliquis) 5 mg PO BID blood clot 05/30/22 latanoprost 0.005 % eye drops 1 drp EACH EYE DAILY glacoma 05/30/22 pantoprazole 40 mg tablet,delayed release 40 mg PO DAILY Check with primary doctor 05/30/22 pramipexole 0.5 mg tablet 0.5 mg PO BID restless leg 05/30/22 furosemide 40 mg tablet 40 mg PO DAILY Leg Swelling 05/31/22 aspirin 81 mg tablet,delayed release 81 mg PO BREAKFAST #0 tabs 06/03/22 atorvastatin 40 mg tablet 40 mg PO QHS #0 tabs 06/03/22 ergocalciferol (vitamin D2) 1,250 mcg (50,000 unit) capsule (Vitamin D2) 1,250 mcg PO Q7D 7 weeks #7 caps 06/03/22 metoprolol succinate 25 mg tablet,extended release 24 hr 25 mg PO DAILY #0 tabs 06/03/22 nystatin 100,000 unit/gram topical powder (Nyamyc) 1 applic topical BID #0 grams 06/03/22 oxycodone 5 mg capsule 5 mg PO Q6H PRN pain 3 days #12 caps 06/03/22 Hospital Course Operations None Procedures 2-D Echocardiogram and Cardiac catheterization Summary of Care Provided Minutes Spent on Discharge: 32 Hospital Course: Patient presents with fall. Patient was found to have elevated troponins. Patient went for cardiac catheterization that showed no significant coronary artery disease. Patient was attempting into a truck and then just got weak and slowly fell to her legs. Patient had pain in her legs but patient did have edema in both lower extremities. Patient had x-rays as well as a CAT scan. Patient did have a effusion in her right knee. Patient was also having edema and anasarca so did receive some IV diuresis. Patient was unstable to go home on her own so patient been going to retirement facility in stable condition. Weight / BMI Weight Weight: 122.1 kg Body Mass Index (BMI) 46.2 ABG / Lab / Microbiology Data Result Diagrams: 06/01/22 11:00 06/03/22 04:15 Laboratory: Laboratory Results - last 24 hr 06/03/22 04:15: Sodium 140, Potassium 3.4 L, Chloride 102, Carbon Dioxide 34.0 H , Anion Gap 4 L, BUN 20 H, Creatinine 0.55, Estim Creat Clear Calc 38.75, Est GFR (MDRD) Af Amer 137, Est GFR (MDRD) Non-Af 113, BUN/Creatinine Ratio 36.4 H, Glucose 113 H, Calcium 8.6 Meaningful Use Info Meaningful Use Diagnoses (Choose all that apply): None applicable Discharge Plan Admission Admit Date/Time: 05/30/22 19:48 Primary Reason for Your Visit: myocardial infarction Attending Provider: Robbie Ely Primary Care Provider: Chay Solis Consulting Providers: Chao Mendez ; [place] Discharge Orders/Prescriptions Prescriptions: New aspirin 81 mg Tablet,Delayed Release (Dr/Ec) 81 mg PO BREAKFAST Qty: 0 0RF atorvastatin 40 mg Tablet 40 mg PO QHS Qty: 0 0RF ergocalciferol (vitamin D2) [Vitamin D2] 1,250 mcg (50,000 unit) Capsule 1,250 mcg PO Q7D 49 Days Qty: 7 0RF metoprolol succinate 25 mg Tablet Extended Release 24 Hr 25 mg PO DAILY Qty: 0 0RF nystatin [Nyamyc] 100,000 unit/gram Powder 1 applic topical BID Qty: 0 0RF Protocol: *Topical Application Instructions APPLICATION INSTRUCTIONS: Under bilateral breasts and groin oxycodone 5 mg capsule 5 mg PO Q6H PRN (Reason: pain) 3 Days Qty: 12 0RF Continued paroxetine HCl 40 mg tablet 1 ea PO DAILY Label Comments: take 1 tablet by mouth once daily losartan-hydrochlorothiazide 100-25 mg tablet 1 tab PO DAILY multivitamin 1 EACH tablet 1 tab PO DAILY Label Comments: supplement calcium carbonate 600 MG tablet 600 mg PO DAILY Label Comments: supplement latanoprost 0.005 % drops 1 drp EACH EYE DAILY Label Comments: place 1 drop into both eyes every evening pramipexole 0.5 mg tablet 0.5 mg PO BID Label Comments: take 2 tablets by mouth at bedtime pantoprazole 40 mg tablet,delayed release (DR/EC) 40 mg PO DAILY Label Comments: take 1 tablet by mouth once daily Eliquis 5 mg tablet 5 mg PO BID Label Comments: take 1 tablet by mouth twice a day furosemide 40 mg Tablet 40 mg PO DAILY Discontinued tramadol 50 mg tablet 50 mg PO Q12H Referrals / Follow Up: [facility] [Provider Group] - Within 3 Months Chay Solis MD [Primary Care Provider] - Within 2 Weeks Disposition Disposition (needs filled in before D/C Order can be placed): [facility] Facility Charges/Coding Visit Charges Inpatient E&M: 15042 Disch Hosp >30min
--- NOTE | 2022-06-03 16:55 | CASEMGMT ---
[facility]. SW called [facility] and arranged wheelchair van case picker. The earliest [facility] had available was 8p. SW notified Kashif Soloriojudd, patient, message left for patient's son, and hospice patient care secretary on ICU. SW completed a PASRR on HENS. All in agreement with d/c plan. Plan[facility] under skilled level of care on a PASRR. [facility] transported via wheelchair van. Monse HUSTON
--- NOTE | 2022-06-03 19:25 | NURSING ---
06/03/22@1925- Report called to MIKKI Sigala at [facility].
--- NOTE | 2022-06-06 12:09 | CASEMGMT ---
Social Work SW received voicemail from Angelique Duke, Nurse behavioral therapy coordinator for [facility] ([phone]). Angelique asked which nursing facility pt discharged too. RITCHIE called Angelique back to inform that pt had discharged to [facility]. ISSAC Peña
== END 2022-06-03 19:40 | disposition skilled nursing facility (03) | DRG 280 ==
LOC: ED 20:52 → ICU 20:59
PROVIDERS: Admitting Provider Hospitalist; Emergency Provider Emergency Medicine; PCP Family Medicine
DX: I11.0 Hypertensive heart disease with heart failure (principal); I21.A1 Myocardial infarction type 2; I50.33 Acute on chronic diastolic (congestive) heart failure; Z68.42 Body mass index [BMI] 45.0-49.9, adult; J44.9 Chronic obstructive pulmonary disease, unspecified; E87.6 Hypokalemia; E83.42 Hypomagnesemia; M79.604 Pain in right leg; S80.211A Abrasion, right knee, initial encounter; S80.212A Abrasion, left knee, initial encounter; S80.811A Abrasion, right lower leg, initial encounter; S80.812A Abrasion, left lower leg, initial encounter; V58.4XXA Person boarding or alighting a pick-up truck or van injured in noncollision transport accident, initial encounter; E66.9 Obesity, unspecified; Z79.82 Long term (current) use of aspirin; Z79.01 Long term (current) use of anticoagulants; M85.80 Other specified disorders of bone density and structure, unspecified site; Z20.822 Contact with and (suspected) exposure to COVID-19; Z79.899 Other long term (current) drug therapy; Z96.612 Presence of left artificial shoulder joint; Z96.643 Presence of artificial hip joint, bilateral; Z96.653 Presence of artificial knee joint, bilateral
CPT/HCPCS: 71045; 71275; 73560; 73590; 73610; 73701; 80048; 80061; 81001; 82306; 82550; 83735; 84484; 85025; 87811; 93005; 93306; 93454; 97110; 97162; 97166; 97530; 97535; 99152; 99153; 99285; C1894; J7040; Q9957; Q9967; A4216; C1769; C8929; J1940

== ENCOUNTER 2022-12-28 07:09 | Observation (INO) | payer MEDICARE, MEDICAID, SELFPAY ==
--- NOTE | 2022-12-25 09:43 | HP.PCM_ITS ---
History and Physical History and Physical? Patient Name: Jess Charlton : 1940 From:? [facility] LOC[facility] PA-C? DATE OF PRE-OPERATIVE EXAM: 12/21/2022 DATE OF SURGERY:? 12/28/2022 SCHEDULED PROCEDURE:? Robotic-assisted right total hip arthroplasty posterior approach HISTORY OF PRESENT ILLNESS: Preoperative history and physical exam was performed on December 21, 2022.? This is a 82-year-old female who has had ongoing bilateral hip pain.? Patient reports the left hip is doing better but she has seen continued progression of right hip pain.? Her pain can reach 10/10 with activities.? She is primarily wheelchair dependent and states she only uses the walker and up and move and occasionally across the room.? She states she can move approximately 20 feet.? Patient has pain that is constant, aching, stabbing.? Pain is increased with any walking, standing, and stairs.? She does have start up pain.? Pain is located in the right groin.? The pain does awaken her at nighttime.? Patient denies past history of surgery on the right hip.? She has been using Tylenol for pain control.? Patient was placed in physical [facility] at [facility].? She was also placed in aquatic therapy however she states this made her symptoms worse.? Patient has medical history pertinent for previous DVT 2020 in which she still takes Eliquis 5 mg twice daily, congestive heart failure with previous heart catheter, sleep apnea, anxiety disorder, gastroesophageal reflux disease, depression, hyperlipidemia, hypertension, history of hypokalemia, and vitamin D deficiency.? She denies any recent chest pain, shortness of breath, fevers chills.? After failing conservative measures and discussing all treatment options was Dr. Chay Johnson, patient would like to proceed with a right total hip arthroplasty. REVIEW OF SYSTEMS: Review Of Systems: Constitutional: Reports hard of hearing LFT ear, but denies anorexia, anxiety, change in appetite, fever, vision problems and weight change Cardiovasular: Reports heart murmur, but denies chest pain, irregular heartbeat and peripheral vascular disease. Respiratory: Reports SOB sometimes, but denies asthma, cough, pneumonia, sleep apnea, tuberculosis and wheezing Gastrointestinal: Reports heartburn sometimes, but denies constipation, diarrhea, difficulty swallowing, nausea, bloody stools and vomiting Genitourinary: Denies incontinence. Musculoskeletal: Reports trouble walking sometimes, but denies leg swelling, limp and weakness Skin: Reports history of shingles Mar 2007, but denies Raynaud's and tattoo Neurological: Reports ambulatory dysfunction sometimes? but denies dizziness, numbness/tingling and tremor Psychiatric: Denies anxiety, depression, insomnia, mental illness and stress. Hematologic/Lymphatic: Reports bleeding/bruising tendency, but denies anemia and past transfusion. Reviewed, no changes. PAST MEDICAL HISTORY: Advance Care Plan: Other Directive, LIVING WILL Effective Date: 03/26/2015 Other Directive, POA Effective Date: 03/26/2015 Past Medical History: Health Maintenance: Counseled on Diet - (2014) Counseled on Smoking Cessation - I have never smoked! Counseled on Weight Loss - (03/2014) Bone Density Test - (2014) Medical Problems: Arthritis, High Blood Pressure DVT - (12/21/2020) LT ANKLE TO GROIN History Of Blood Clots/ DVT - (1991) Congestive Heart Failure (CHF) - previous heart cath May 2022 Sleep Apnea, anxiety disorder, Acid Reflux, Depression, Hypokalemia, Hyperlipidemia, Vitamin D deficiency Accidents: Fracture - LFT wirst, LFT hand finger Surgical Hx: Arthroscopy - t knee [address] [facility] [address] Suazo RT Unicompartmental Knee Replacement - (05/19/2009) [facility] - 2003 Dr. Verónica Hoang Front Upper Teeth Pulled - (1953) DR MCDOWELL Knee Replacement LT - (03/23/2010) CLEMENTE @ [facility] D & C - (02/2012) Hysterectomy - (04/2012) ZOEY Laser Surgery - (11/07/2013) REMOVE PRECANCEROUS CELLS FROM WALL OF UTERUS? LT CTR - (01/16/2014) [email or web address] Carpal Tunnel Release RT - (02/28/2014) [email or web address]? Shoulder Replacement RT - (01/27/2015) [email or web address] RT Shoulder Replacement Dislocation - (02/11/2015) [email or web address] Hip Replacement LT - (03/03/2021) KEILA @ [facility] Anesthesia Complications: None Assistive Devices: Glasses, Dentures - (upper) Reviewed and updated. SOCIAL HISTORY: Social History: Marital: .Occupation: Retired.Work Status: Retired.Hand Dominance: Left- Handed. Personal Habits:? Cigarette Use: Never.Smokeless Tobacco: Never Used Smokeless Tobacco.E-Cigarette Use: Never used.Alcohol: Occasionally.Drug Use: Denies Use.Enjoy Exercising: Exercises 1-3 x/month. Reviewed and updated. VITALS: Ht: 64 Wt: 262lb Wt k.843 BMI: 45.0 BP: 136/76 Pulse: 78 Resp: 20 T: 97.8 T: 36.6C Pain Level: 2 O2SatR: 97 ALLERGIES: Penicillin? MEDICATIONS: Multivitamins? daily, Paroxetine HCL 40 mg 1 by mouth every day, Pantoprazole Sodium 40 mg 1 by mouth every day, Latanoprost 0.005 % both eye nightly, Eliquis 5 mg 1 by mouth every day, Lasix 40 mg 1 by mouth every day, Albuterol Sulfate (2.5 mg/3ml) 0.083% daily, Losartan Potassium/Hydrochlorothiazide 100-25 mg take 1 tablet by mouth once daily, Metoprolol Succinate ER 25 mg 1 po qdaily, Nyamyc [id number] Unit/GM daily, Potassium Chloride Anjelica ER 20 Meq 1 po qdaily, Pramipexole Dihydrochloride 1 mg 1 po qdaily, Tylenol 325 mg as needed, Aspirin 81 81 mg orally with breakfast, Atorvastatin Calcium 40 mg 1 by mouth every day, Calcium Carbonate 1500 (600 Ca) MG daily, Vitamin D 50 mcg (2000 Ut) 1 by mouth 5 days a week, Ergocalciferol 1.25 MG (33568 Ut) q7d, Diclofenac Sodium 1 % apply 2-4 times daily over affected area PRE-OP EXAM:? General appearance:NORMAL? ? ? Other: Eyes: Conjunctivae and lids: NORMAL? Pupils: ERR Ears, Nose, Mouth, and Throat: NORMAL? Other: Inspection of lips, teeth and gums: NORMAL? ?Other: Neck: Examination of neck: no masses noted. Respiratory: Assessment of respiratory effort: NORMAL? ?Other: ?Auscultation of lungs: clear to auscultation no wheezes, rhonchi or rales. Cardiovascular:? Auscultation of heart: regular rate and rhythm, no murmurs, gallops or rubs. PHYSICAL EXAMINATION: Patient presents today in a wheelchair.? She does have tenderness to palpation over the lateral right hip.? Patient is morbidly obese with BMI 45.0.? She has increased pain with range of motion passively of the right hip.? She was able to perform knee flexion and extension.? Patient was able to plantarflex and dorsiflex bilaterally.? Sensation intact to light touch. IMAGING STUDIES: Previous x-rays of the right hip reveals severe degenerative changes with progression and collapse of the femoral head with bony erosion.? There is severe osteoarthritis with avascular necrosis and femoral head collapse.? There is presence of a previous left cemented total hip arthroplasty with no evidence of loosening or lucencies. IMPRESSION: 1.? 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 Hypertension 3.? History of DVT 4.? Congestive heart failure with previous heart catheter 5.? Sleep apnea 6.? Anxiety/depression 7.? Gastroesophageal reflux disease 8.? Hyperlipidemia 9.? Vitamin D deficiency 10.? History of hypokalemia 11.? Morbid obesity with BMI 45.0 PLAN: Dr. Chay Johnson did discuss and review with the patient all treatment options including surgical versus nonsurgical options.? Patient does wish to proceed with the above-stated procedure.? Potential risks, benefits, and complications of the procedure were discussed in detail including but not limited to , infection, nerve and blood vessel damage, persistent pain, numbness, tingling, paresthesias, blood clot, pulmonary embolism, and requirement for possible further surgery.? The patient expressed full understanding and has no further questions for the doctor.? Patient does agree to proceed with the above-stated procedure and has signed the surgery consent form. POST-OP MEDICATION PLAN: Pain Medications: Postoperatively the patient will be placed on doxycycline twice daily for 2 weeks due to high risk patient. DVT Prophylaxis: Patient will resume her Eliquis 5 mg twice daily postoperatively as prescribed by outside provider.? We are also reaching out to primary care physician for perioperative management of the Eliquis.? I did advise the patient that we do stop this minimum 2 days prior to surgery. This dictation was created using voice recognition software. Phonetic and/or grammatical errors may exist. ___? I have re-examined the patient.? There are no clinical changes since date of exam. ___? See progress notes for changes. ___? Dictated on admission Date: ? ? ?Time: Signature:
[2022-12-28] VITALS (12 sets, daily range): BP systolic 101–171; BP diastolic 41–83; PULSE 76–86; RESP 14–18; TEMP 36.2–36.7; O2SAT 88–99; BMI 45.3
[2022-12-28] MEDS: Vancomycin HCl 1,750 MG in 0.9% Normal Saline (500mL Bag) 500 ML 250 MG IV ×2 (07:00→18:32)
[2022-12-28] MEDS: Magnesium 2 GM for ERAS IV (07:05)
--- NOTE | 2022-12-28 07:12 | RAD_ITS ---
STUDY: X-RAY - PELVIS AND RIGHT HIP REASON FOR EXAM: Female, 82 years old. Post Op -- AP both hips on single luis m/lateral of op hip PACU TECHNIQUE: 2 views of the pelvis and hip. COMPARISON: Comparison is made with prior study of August 03, 2022. FINDINGS: The patient is status post right total hip replacement. Is good alignment. Postoperative soft tissue changes. RAD/Hip Min 2 Views (Portable) IMPRESSION: Status post right total hip replacement. There is good alignment. Postoperative soft tissue changes. Electronically Signed: Alex Elder MD at 12:22 EDT ,
[2022-12-28 07:15] LABS: Bedside Glucose 94 mg/dL (74-106)
[2022-12-28] MEDS: Gabapentin 600 MG Tablet PO (07:15)
[2022-12-28] MEDS: Acetaminophen 500 MG Tablet 1000 MG PO ×3 (07:15→21:46)
[2022-12-28] MEDS: Lactated Ringers 1,000 ML 999 ML IV ×2 (07:15→11:45)
[2022-12-28] MEDS: Celecoxib 200 MG Capsule 400 MG PO (07:15)
--- NOTE | 2022-12-28 08:45 | HIP_PTH ---
PATIENT: ANA AHN LOC: [id number] U#:[id number] AGE/SX: 82/F [place] [facility] [place]: Dr. Chay Johnson MD : 1940 BED: 1 DIS: 12/30/2022 SPEC #: [id number] RECD: 12/28/22 13:54 STATUS: GINA ROSA #: [id number] JALYN: 12/28/22 08:[address]: Chay Johnson DEPT: SURGICAL PATHOLOGY RECD BY: Bryon Solis ENTERED: 12/28/22 13:55 SP TYPE: TOTAL HIP OTHR DR: DO Dr. 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 Mild synovial hyperplasia. AM:natacha 01/02/2023 MICROSCOPIC DESCRIPTION Slides are reviewed. GROSS DESCRIPTION Received is one container labeled with the patient's name and designated right hip bone and tissue. The specimen consists two pieces of bone measuring 4.0 x 2.5 x 1.0 cm and 2.0 x 1.5 x 1.0 cm. No obvious femoral head is identified. The articular surface displays prominent osteophyte formation, eburnation and bone erosion. Also present in the specimen container is a piece of soft tissue with central area of bone formation measuring 3.0 x 3.0 x 2.0 cm. Also present in the container are multiple irregular fragments of bone reamings and pink-yellow soft tissue measuring in aggregate 6.0 x 6.0 x 1.5 cm. [employer] sections are submitted in three cassettes as follows: 1 - soft tissue, 2 - soft tissue with central area of bone formation, 3 - larger piece of bone. Cassettes 2 & 3 are submitted after decalcification. / KARLENE:natacha 12/28/2022 TC:5 CPT: 39840, 45528
[2022-12-28] MEDS: Clindamycin 900 MG/50 ML BAG 75 MG IV (08:52)
[2022-12-28] MEDS: dexAMETHasone 10 MG/ML Vial IV (09:12)
[2022-12-28] MEDS: JPS (Morphine 10mg/ml) OPERA.SITE (10:36)
[2022-12-28] MEDS: TRANEXAMIC ACID 2,000 MG, 0.9% Normal Saline (100mL Bag) 100 ML OPERA.SITE (10:36)
--- NOTE | 2022-12-28 10:42 | OP.PCM_ITS ---
Report of Operation Date of Procedure: 12/28/22 Pre-Operative Diagnosis: Right hip avascular necrosis Post-Operative Diagnosis: Right hip avascular necrosis Surgery/Procedure Performed:: Right posterior robotic assisted total hip replacement Description of Surgical Findings:: Stable hip, due to patient's chronic shortening and limited overall mobility we elected to obtain appropriate soft tissue tensioning and did not lengthen beyond that. Surgeon: Chay Johnson curriculum and assessment coordinator: Shad Trujillo Type of Anesthesia: General Anesthesiologist: Indra Anna Special Medications: Vanc & clinda, 1 g TXA at incision, 1 g TXA closure, 10 mg Decadron, joint cocktail (5 mg Duramorph, 30 mL of 0.5% Ropivicaine, 1000 units of epinephrine, 30 mg of Toradol) Specimen's removed: Bony cuts Estimated Blood Loss (mL): 500 Fluids Replaced: 1200 mL crystalloid Description of Procedure: Findings: Adequate reduction with stability of the hip and equal leg lengths measured intraoperatively. Components used: 1. Bharat insignia high offset size 6 stem 2. [place] Trident 252 mm acetabular shell 2 screws 3. Bharat X3 polyethylene liner, FOR MDM alpha code E 4. Bharat Biolox delta 28 mm, 4 mm neck femoral head 5. [place] cobalt-chromium MDM liner alpha code E Brief history operative indications: 82-year-old female with severe avascular necrosis and osteoarthritis of the hip. Patient had complete erosion of her femoral head. After restratify and the patient and optimizing to the best of our abilities, risks and benefits were discussed with the patient which included but were not limited to blood loss, DVTs, PEs, infection, neurovascular damage, and dislocation. In light of all this patient did agree to proceed with a total hip arthroplasty. Procedure: On the date of procedure the patient's R hip was marked in the preoperative area. Patient was then taken back to the operating room where anesthesia assumed control of the C-spine and airway and administered anesthetic. Patient was transferred to the operating table and placed in the lateral decubitus position with the affected hip up. The patient was secured in the bed with the lateral positioners and leg lengths were checked. The R lower extremity was then prepped out in a sterile fashion using chlorhexidine while the surgeon scrubbed. Upon reentering the room the R lower extremity was draped in the standard orthopedic fashion and the incision was marked. A timeout was called and everyone agreed upon the side, the site, the procedure be performed, antibiotics given, and patient's identity. The iliac crest was palpated and a 4 cm incision was made in a cutdown fashion in order to get to the iliac crest based on patient's body habitus. We bluntly dissected down to the iliac crest using a hemostat and then placed 2 pins using the guide from the Henrieville set In the iliac crest. After doing this we placed the hip array and then directed our attention to the surgical site. At this time incision was made through skin, subcutaneous tissue, and fat down to fascia. The fascia was then incised and a Charley retractor was placed. The soft tissue was then cleared from the posterior external rotators and the piriformis was identified. Piriformis was taken down and tagged. The remainder of the short external rotators were taken down. Capsulotomy was made and the posterior capsule was tagged. The retrac tors were then placed inside the capsule. The femoral neck was identified and a cleanup cut was made. At this time a power corkscrew was used to remove the femoral head. At this time all bony debris was removed from the acetabulum. The femur was retracted out of the way our attention was then directed to the acetabulum and the anterior retractor was placed and a Zelpi was used to retract the posterior capsule superiorly. All soft tissue debris was removed from the pulvinar and labrum of the joint. Based on the patient's pathology with absence of the femoral head there was significant soft tissue that need to be debrided. Once we are able to get down to bone we were able to identify the bony structures and registered the [employer] robotic plan. Once we are able to successfully register [employer] robotics, the acetabulum was then reamed to 52 millimeters with the assistance of the [employer] robotic arm at 40 degrees abduction and 25 degrees anteversion. At this time a and 52 mm [place] Trident 2 cup was opened and impacted into place with the assistance of the [employer] robotic arm at 40 degrees abduction and 25 degrees anteversion. 2 bone screws were placed in the safe zone of the acetabular component. Once it was securely fastened down the cobalt-chromium liner was placed and security was verified. Attention was then turned to the femur where the proximal femur was appropriately exposed using a coon retractor. The card boxer was used to remove the lateral bone. Canal finder was used to verify the canal. The proximal femoral femur was then sequentially broached to a size 6 broach which had an appropriate fit. The broach was left in place. Once it was securely fastened our attention was again turned towards the femur and the high offset neck was chosen and a 28 mm head with 4 mm offset was trialed. The hip was properly reduced using traction and external rotation. Stability was checked with the appropriate amount of shuck, no impingement with external rotation, and stable at 90? flexion and 90? internal rotation. Leg lengths were checked and were found to be slightly shorter on the table however, based on the patient's chronic shortening soft tissue tensioning was appropriate and patient had stable hip. At this point we felt that further soft tissue tensioning would likely cause more soft tissue problems and patient was completely stable. Finally, there was concern that overtensioning can cause fracture.. Once the hip was determined to be stable the trial components were dislocated and The proximal femur was again exposed and the components were removed from the wound. The final components were verified and opened. The wound was copiously irrigated out with normal saline. The acetabulum was checked for any residual debris. The final components were placed and impacted. Traction and external rotation were again used to reduce the hip. After adequate reduction the hip remained stable with appropriate leg lengths. The wound was then copiously irrigated with normal saline once more, and hemostasis was obtained. The posterior capsule was repaired through drill holes to the greater trochanter . Based on lengthening of the limb the piriformis could not be repaired due to overtensioning. Closure was then done using #1 Vicryl to close the fascia. Deep fatty tissue were closed multiple layers using #1 Vicryl. A 2-0 Vicryl interrupted sutures were used to close the subcutaneous skin. Nylon sutures were used for final skin closure. A sterile vacuum dressing was placed. Patient was awakened by anesthesia and transferred to the [facility]. Patient was then transferred to the PACU for recovery. Postoperative plan: Patient will get 24 hours postop antibiotics. Patient will get in-house physical therapy and will be weight-bear as tolerated. Patient will follow up in office in 2 weeks for a wound check and x-rays. Patient will resume her Eliquis postoperatively on day 1. This will be sufficient for DVT prophylaxis. Additionally patient is morbidly obese with BMI greater than 45 and is institutionalized with concerns for increased risk of infection. Based on this we will place her on doxycycline 100 mg p.o. twice daily for 2 weeks as the wound heals. The wound VAC will be left in place for 7 days postoperatively. During the course of the procedure the physician clothes shaker (PE) played a vital role. Their intimate knowledge of my steps in the procedure aided in safe and expedient completion of the procedure. The PE played a vital rolls in positioning particularly in obtaining the appropriate lateral decubitus position. The PE was also vital in the retraction of soft tissues during the exposure and especially the femoral work as this is a vital part of the procedure to prevent complications and fractures. The PE was also vital and protecting soft tissues during times of bony cuts and reaming. He also played a vital role in closure with my direct supervision. The PE was also important during reduction and dislocation of the joint and trials intraoperatively. Complications No intraoperative complications were encountered Admit VTE Documentation VTE Present on Admission: No VTE Mechan Device Prophylaxis: SCD's and Thigh High JOYA Hose VTE Pharm Prophylaxis ordered?: Yes
--- NOTE | 2022-12-28 13:23 | PN.HOSP_ITS ---
Reason for Visit Reason for Visit: Right hip osteoarthritis Subjective Subjective Mrs. Charlton is an 82-year-old white female who presented electively to [facility] on 12/28/2022 for a robotic assisted right total hip arthroplasty posterior approach. She evidently had an ongoing bilateral hip pain however her right hip had worsened over time. She was having 10 out of 10 pain with multiple activities and was predominantly wheelchair dependent due to her pain. She had been using Tylenol for pain control as well as physical therapy to skilled facility and had undergone aquatic therapy as well however they all made her symptoms worse. She does have history of DVT in 2020 for which she takes Eliquis p.o. twice daily and also has a history of JOEL, GERD, hyperlipidemia, chronic HFpEF, diastolic dysfunction, anxiety, and depression. She had a card iac catheterization on 05/23/2022 which is unremarkable for any findings. We have been consulted postoperatively for medical management of her chronic medical issues. Evaluated the patient postoperatively on the medical floor. Patient was sound asleep sitting up in a chair and appeared comfortable at the time of my evaluation. Objective Data Objective Data Vital Signs: Vital Signs Temp Pulse Resp BP Pulse Ox O2 Del Method O2 Flow Rate 97.8 F 77 14 148/64 H 92 Room Air 4 12/28/22 12:45 12/28/22 12:45 12/28/22 12:45 12/28/22 12:45 12/28/22 12:45 12/28/22 12:45 12/28/22 12:30 Oxygen Flow Rate (L/min) 4 Oxygen Delivery Method Room Air Weight: 120 kg Body Mass Index (BMI) 45.3 Intake & Output: Intake and Output for Last 24 Hours 12/26/22 12/27/22 12/28/22 23:59 23:59 23:59 Intake Total 1689 / 1689 Balance 1689 / 1689 Lab / Micro Data 12/28/22 16:38 Labs: Laboratory Results - last 24 hr 12/28/22 06:56: POC Glucose 94 Radiography Diagnostic Testing: Radiology Impression Hip X-Ray 12/28/22 07:12 IMPRESSION: Status post right total hip replacement. There is good alignment. Postoperative soft tissue changes. Electronically Signed: Alex Elder MD at 12:22 EDT , Physical Exam Const no apparent distress, healthy appearing and well nourished; Negative for average body habitus Constitutional Narrative: Morbidly obese, white female, sitting up in a chair at the bedside sleeping soundly, appears comfortable, nontoxic appearing HEENT head/scalp atraumatic and moist oral mucous membranes HEENT Narrative: Mallampati 3, no thrush Head and Scalp: normocephalic Resp normal respiratory effort, no retractions, no use of accessory muscles and clear to auscultation bilaterally Auscultation: Negative for rales, rhonchi or wheezes Cardio regular rate, regular rhythm, S1 normal heart sound, S2 normal heart sound, no murmurs, no rub, no gallops and no clicks GI normal to inspection, nondistended, normoactive bowel sounds, soft to palpation and non-tender GI Narrative: Large protuberant abdomen Extremity no clubbing, cyanosis or edema Extremity Narrative: 2+ pedal pulses, polar ice on right hip, JOYA hose in place Assessment & Plan Assessment/Plan (1) Degenerative joint disease of right hip: PLAN: Plan Avascular necrosis/osteoarthritis of the right hip -Postop day 0 posterior robotic assisted total left hip replacement -Pain management per primary -Would recommend bowel regimen -Plan is for doxycycline 100 mg p.o. twice daily as the wound heals for concerns of infection risk as she is institutionalized at baseline -PT/OT consultation History of DVT -Restart Eliquis tomorrow per orthopedic surgery Hyperlipidemia -Continue atorvastatin HFpEF secondary to diastolic dysfunction -Continue home Lasix -Continue home metoprolol Hypertension -Continue home metoprolol -Continue home losartan -Continue home hydrochlorothiazide GERD -Continue PPI Restless leg syndrome -Continue home Mirapex Glaucoma -Continue home eyedrops Depression -Continue home paroxetine DVT prophylaxis -SCDs for now -Eliquis to initiate tomorrow Charges/Coding Visit Charges Inpatient E&M: 19228 Subs Hosp L2
[2022-12-28] MEDS: 0.9% Normal Saline (250mL Bag) 250 ML 15 ML IV (13:41)
--- NOTE | 2022-12-28 14:27 | NURSING ---
attempted to leave message with [facility] for nurse to call with clarification of medications/vaccine dates.
[2022-12-28] MEDS: Cefazolin 1 GM/50 ML BAG IV ×2 (15:49→22:43)
--- NOTE | 2022-12-28 16:00 | NURSING ---
second message left with [facility] nurse to request clarification on when vit d is administered, what day of the week.
--- NOTE | 2022-12-28 16:00 | CASEMGMT ---
Social Work SW spoke with pt's surgeon who states pt is from [facility] and will be ready for dischrage tomorrow. Phone call to [facility] admissions who states pt is a Medicaid Bed hold and can return when medically ready. [facility] will get the precert for skilled care once pt returns to their facility. ISSAC Hernandez
[2022-12-28 17:01] LABS: Creatinine, Serum 0.76 mg/dL (0.55-1.02); EST Glomerular Filtration Rate 78 mL/min (>60); Est Glom Filt Rate - Afr Amer 94 mL/min (>60)
[2022-12-28] MEDS: Ensure Surgery 237 ML LIQUID PO (17:11)
--- NOTE | 2022-12-28 17:30 | NURSING ---
talked with nurse from [facility] verified vitamin D, nurse unsure if patient was given toprol xl this a.m. by third shift lieutenant prior to arrival to hospital and confirmed vaccine date as pt stated.
[2022-12-28] MEDS: Pramipexole Di-HCl 0.5 MG Tablet PO (21:46)
[2022-12-28] MEDS: Senna/Docusate Sodium 1 Tablet 2 TABLET PO (21:47)
[2022-12-28] MEDS: Atorvastatin Calcium 40 MG Tablet PO (21:47)
[2022-12-28] MEDS: Latanoprost 0.005% 1 Bottle 1 DRP EACH EYE (22:43)
[2022-12-28] MEDS: Miconazole Nitrate 43 GM Bottle 1 APPLIC TOPICAL (22:43)
[2022-12-29] VITALS (8 sets, daily range): BP systolic 105–135; BP diastolic 51–66; PULSE 74–96; RESP 16–18; TEMP 36.3–37.1; O2SAT 93–100
[2022-12-29] MEDS: Acetaminophen 500 MG Tablet 1000 MG PO ×3 (05:01→21:14)
[2022-12-29 06:00] LABS: Hematocrit 32.5 % (37-47); Hemoglobin 9.5 g/dL (12.0-15.0); Mean Corp Hgb Conc 29.2 g/dL (32-36); Mean Corpuscular Hgb 28.4 pg (27.0-32.0); Mean Platelet Vol. 10.4 fl (6.2-12.0); Platelet Count 153 K/mm3 (150-450); RBC Distribution Width CV 14.5 % (11.6-14.6); RBC Distribution Width SD 51.3 fl (35.1-43.9); Red Blood Count 3.35 M/mm3 (4.2-5.4); White Blood Count 10.3 K/mm3 (4.4-11.0)
[2022-12-29 06:34] LABS: Anion Gap 4 (5-15); BUN 23 mg/dL (7-18); BUN/Creat Ratio 33.5 RATIO (10-20); Calcium,Total 8.4 mg/dL (8.5-10.1); Chloride 105 mmol/L (98-107); Creatinine, Serum 0.69 mg/dL (0.55-1.02); EST Glomerular Filtration Rate 87 mL/min (>60); Est Glom Filt Rate - Afr Amer 106 mL/min (>60); Glucose 155 mg/dL (74-106); Potassium 4.2 mmol/L (3.5-5.1); Sodium Level 139 mmol/L (136-145)
[2022-12-29] MEDS: Multivitamins,Therapeutic Tablet 1 TABLET PO (08:00)
[2022-12-29] MEDS: Senna/Docusate Sodium 1 Tablet 2 TABLET PO ×2 (08:00→21:14)
[2022-12-29] MEDS: 0.9% Saline Lock 10 ML Syringe IV (08:00)
[2022-12-29] MEDS: Pramipexole Di-HCl 0.5 MG Tablet PO ×2 (08:00→21:14)
[2022-12-29] MEDS: Paroxetine 20 MG Tablet 40 MG PO (08:00)
[2022-12-29] MEDS: Calcium Carb/Vitamin D 1 TABLET Tablet PO (08:01)
[2022-12-29] MEDS: Famotidine 20 MG Tablet PO (08:01)
[2022-12-29] MEDS: Aspirin E.C. 81 MG Tablet PO (08:01)
[2022-12-29] MEDS: APIXABAN 5 MG TABLET PO ×2 (08:01→21:14)
[2022-12-29] MEDS: Ensure Surgery 237 ML LIQUID PO ×2 (08:04→18:04)
--- NOTE | 2022-12-29 08:47 | CASEMGMT ---
Discharge Planning Updates sent to [facility] via [facility]. Brittany Chapman, Discharge Planning Asst.
--- NOTE | 2022-12-29 10:07 | PN.ORTHO_ITS ---
Subjective Subjective The patient was sitting in bedside chair upon examination. Patient denies any chest pain, shortness of breath, dizziness, lightheadedness, nausea or vomiting, or calf pain. Pain is controlled on medications. No adverse overnight events. Patient is currently on nasal oxygen. She does report when she was in the senior living in May 2022 she was placed on oxygen for approximately 3-4 months. She cannot give me any more specific details. She has not worked with physical therapy yet. She is a resident at [facility]. The plan is for patient to be discharged back to the senior living when medically stable. Patient has had some lower blood pressure in which she is on multiple medications. She denies any chest pain or shortness of breath. She does have incisional wound VAC in place. Objective Data Objective Data Vital Signs: Vital Signs Temp Pulse Resp BP Pulse Ox O2 Del Method O2 Flow Rate 97.6 F L 75 18 106/55 L 94 Nasal Cannula 2 12/29/22 07:50 12/29/22 07:50 12/29/22 07:50 12/29/22 07:50 12/29/22 07:50 12/29/22 07:50 12/29/22 07:50 Oxygen Flow Rate (L/min) 2 Oxygen Delivery Method Nasal Cannula Weight: 120 kg Body Mass Index (BMI) 45.3 Intake & Output: Intake and Output for Last 24 Hours 12/27/22 12/28/22 12/29/22 23:59 23:59 23:59 Intake Total 3444 / 3444 950 / 950 Output Total 175 / 175 550 / 550 Balance 3269 / 3269 400 / 400 Lab / Micro Data 12/29/22 05:50 12/29/22 05:50 Labs: Laboratory Results - last 24 hr 12/28/22 16:38: Creatinine 0.76, Estim Creat Clear Calc 38.10, Est GFR (MDRD) Af Amer 94, Est GFR (MDRD) Non-Af 78 12/29/22 05:50: WBC 10.3, RBC 3.35 L, Hgb 9.5 L, Hct 32.5 L, MCV 97.0, MCH 28.4, MCHC 29.2 L, RDW Std Deviation 51.3 H, RDW Coeff of Beth 14.5, Plt Count 153, MPV 10.4, Sodium 139, Potassium 4.2, Chloride 105, Carbon Dioxide 30.0, Anion Gap 4 L, BUN 23 H, Creatinine 0.69, Estim Creat Clear Calc 38.10, Est GFR (MDRD) Af Amer 106, Est GFR (MDRD) Non-Af 87, BUN/Creatinine Ratio 33.5 H, Glucose 155 H, Calcium 8.4 L Radiography Diagnostic Testing: Radiology Impression Hip X-Ray 12/28/22 07:12 IMPRESSION: Status post right total hip replacement. There is good alignment. Postoperative soft tissue changes. Electronically Signed: Alex Elder MD at 12:22 EDT , Physical Exam Narrative Vital signs stable and afebrile. Patient does have some lower blood pressure and currently on nasal oxygen 2 L. SCDs and JOYA hose are in place bilaterally Patient is able to plantarflex and dorsiflex actively. Sensation is intact to light touch to saphenous, sural, superficial and deep peroneal, and tibial distribution. VAC via incisional wound VAC currently in place with no drainage in tubing or canister. Negative Homans bilaterally, negative signs and symptoms of DVT. Const alert, oriented x3 and no apparent distress Assessment & Plan Assessment/Plan (1) S/P total right hip arthroplasty: PLAN: 1. S/P right posterior total hip arthroplasty POD #1 2. Continue Pain Medications: Tylenol and oxycodone 3. DVT Prophylaxis: Patient has been resumed on her Eliquis 5 mg twice daily. She does have past history of DVT 4. PT/OT: Weightbearing as tolerated with walker. Continue posterior hip dislocation precautions for 3 months postoperatively 5. Lab work has been reviewed. Patient did have mild drop in her hemoglobin currently at 9.5. Likely from acute blood loss from surgery but previous lab work shows chronically low. Patient also reports that she has had to be placed on iron in the past. She will be placed on folic acid and ferrous sulfate. Will need to recheck lab work at nursing facility upon discharge. I would defer chronic management to her primary care physician upon discharge. She currently denies any dizziness or lightheadedness. 6. Wound VAC: Patient will continue with VAC via incisional wound VAC for 1 week postoperatively. Removal date will be on January 04, 2023. While wearing the incisional wound VAC patient is not to get this area wet. Currently there is no output or drainage in the canister or tubing. 7. Continue postoperative medical management per medicine: Case was discussed with nursing and patient has been having some lower blood pressure. She is on multiple medications and I would defer to medicine with management of her current blood pressure medications. She currently denies any chest pain, shortness of breath. 8. Postoperative hypoxia: Patient currently on 2 L nasal oxygen. Plan will be to try to wean patient off oxygen postoperatively. I did encouraged Incentive Spirometry. Patient does report having past history requiring oxygen due to low O2 saturation while in the senior living. I would recommend maintaining O2 saturation greater than 92% upon discharge. 9. Currently on doxycycline for 2 weeks postoperatively due to BMI 45.0 as well as high risk due to [facility] facility care. I discussed with the patient potential side effects of doxycycline including sensitivity to the sunlight and increased risk of skin burn. Recommend patient take appropriate precautions. Also recommend patient to take probiotic while on the antibiotic. Patient voiced understanding agreement. 10. Disposition: Currently I do not feel patient is appropriate for discharge today. I would like to see how patient does with physical therapy and also have medications adjusted if needed by medicine. Plan will be for possible discharge back to the [facility] facility at [facility] tomorrow if medically stable. Will continue above treatment plan with wound VAC, medications, restrictions from physical therapy due to posterior hip procedure. Also recommend they continue to monitor her O2 saturation upon discharge at the senior living and utilize nasal oxygen as needed. Would recommend repeat lab work upon discharge at the [facility] facility in approximately 3 days. I would defer further treatment with regards to her chronic anemia to the primary care physician. Case management is currently involved for appropriate discharge planning. I have reviewed the [place] Automated Rx Reporting System (OARRS) report for this patient for refill pattern and other prescriber involvement as part of the appropriate surveillance for the provision of acute and chronic controlled medications. The report was requested and reviewed on the date of this entry and was considered in the prescribing process. This dictation was created using voice recognition software. Phonetic and/or grammatical errors may exist.
[2022-12-29] MEDS: Ferrous Sulfate 325 MG Tablet PO ×2 (11:43→18:04)
[2022-12-29] MEDS: Doxycycline 100 MG CAPSULE PO ×2 (11:44→21:14)
[2022-12-29] MEDS: Calcium Carbonate 500 MG Tablet PO (11:44)
[2022-12-29] MEDS: Pantoprazole Sodium 40 MG Tablet PO (11:44)
[2022-12-29] MEDS: Ergocalciferol 1.25 MG (50, 000 UNIT) Capsule PO (11:44)
[2022-12-29] MEDS: Miconazole Nitrate 43 GM Bottle 1 APPLIC TOPICAL ×2 (11:45→21:14)
--- NOTE | 2022-12-29 16:36 | CASEMGMT ---
Met with patient to complete LAO form. LAO form explained to patient who voiced understanding and signed form. Original form placed in pt?s chart and copy provided to patient. Brittany Chapman, Discharge Planning Asst.
[2022-12-29] MEDS: Atorvastatin Calcium 40 MG Tablet PO (21:14)
[2022-12-29] MEDS: Latanoprost 0.005% 1 Bottle 1 DRP EACH EYE (21:14)
[2022-12-30] VITALS (8 sets, daily range): BP systolic 111–162; BP diastolic 50–73; PULSE 76–120; RESP 16–18; TEMP 36.3–37.2; O2SAT 95–98
[2022-12-30] MEDS: Acetaminophen 500 MG Tablet 1000 MG PO ×2 (05:39→13:06)
[2022-12-30 06:31] LABS: Hematocrit 27.9 % (37-47); Hemoglobin 8.5 g/dL (12.0-15.0); Mean Corp Hgb Conc 30.5 g/dL (32-36); Mean Corpuscular Hgb 28.5 pg (27.0-32.0); Mean Corpuscular Volume 93.6 fL (81-99); Mean Platelet Vol. 10.7 fl (6.2-12.0); Platelet Count 148 K/mm3 (150-450); RBC Distribution Width CV 14.7 % (11.6-14.6); RBC Distribution Width SD 50.5 fl (35.1-43.9); Red Blood Count 2.98 M/mm3 (4.2-5.4)
[2022-12-30] MEDS: Folic Acid 1 MG Tablet PO (07:55)
[2022-12-30] MEDS: Aspirin E.C. 81 MG Tablet PO (07:55)
[2022-12-30] MEDS: Multivitamins,Therapeutic Tablet 1 TABLET PO (07:55)
[2022-12-30] MEDS: Miconazole Nitrate 43 GM Bottle 1 APPLIC TOPICAL (07:56)
[2022-12-30] MEDS: Famotidine 20 MG Tablet PO (07:58)
[2022-12-30] MEDS: Pramipexole Di-HCl 0.5 MG Tablet PO (07:58)
[2022-12-30] MEDS: Pantoprazole Sodium 40 MG Tablet PO (07:59)
[2022-12-30] MEDS: Senna/Docusate Sodium 1 Tablet 2 TABLET PO (07:59)
[2022-12-30] MEDS: Ensure Surgery 237 ML LIQUID PO (09:10)
[2022-12-30] MEDS: Doxycycline 100 MG CAPSULE PO (09:22)
[2022-12-30] MEDS: APIXABAN 5 MG TABLET PO (09:22)
[2022-12-30] MEDS: Paroxetine 20 MG Tablet 40 MG PO (09:23)
[2022-12-30] MEDS: Calcium Carb/Vitamin D 1 TABLET Tablet PO (09:23)
[2022-12-30] MEDS: Calcium Carbonate 500 MG Tablet PO (09:23)
--- NOTE | 2022-12-30 11:22 | PN.ORTHO_ITS ---
Subjective Subjective Patient is s/p right sided total hip arthroplasty with Dr. Johnson. Patient resting comfortably in bed. Rates pain 2/ 10 at rest. With movement to/10. States taking Tylenol and oxycodone as needed and ice help to relieve pain. Patient has been up with therapy. Walking with the assit of a walker. Afebrile, no chest pain, shortness of breath, negative calf pain/ erythema, and no other signs of DVT. Patient remains on O2 satting well. Hypotensive episodes have resolved. H&H has dropped slightly today no worsening vitals remains asymptomatic. Objective Data Objective Data Vital Signs: Vital Signs Temp Pulse Resp BP Pulse Ox O2 Del Method O2 Flow Rate 97.8 F 76 18 111/50 L 95 Nasal Cannula 2 12/30/22 08:01 12/30/22 09:23 12/30/22 08:01 12/30/22 09:23 12/30/22 08:15 12/30/22 08:15 12/30/22 08:15 Oxygen Flow Rate (L/min) 2 Oxygen Delivery Method Nasal Cannula Weight: 120 kg Body Mass Index (BMI) 45.3 Intake & Output: Intake and Output for Last 24 Hours 12/28/22 12/29/22 12/30/22 23:59 23:59 23:59 Intake Total 3444 / 3444 950 / 1250 600 / 600 Output Total 175 / 175 1525 / 1800 925 / 925 Balance 3269 / 3269 -575 / -550 -325 / -325 Lab / Micro Data 12/30/22 05:53 12/29/22 05:50 Labs: Laboratory Results - last 24 hr 12/30/22 05:53: WBC 7.0, RBC 2.98 L, Hgb 8.5 L, Hct 27.9 L, MCV 93.6, MCH 28.5, MCHC 30.5 L, RDW Std Deviation 50.5 H, RDW Coeff of Beth 14.7 H, Plt Count 148 L, MPV 10.7 Physical Exam Narrative Patient resting comfortably in bed No signs of acute distress satting 95% 2 L nasal cannula Limb is warm to touch, Sensation intact throughout entire lower extremity, including saphenous, sural, superficial and deep peroneal, and tibial dis tribution. DP/PT pulses bounding. dorsi flexion/ plantar flexion 5/[address] Calf nontender to palpation, no erythema, no edema. Negative Homans Assessment & Plan Assessment/Plan (1) S/P total right hip arthroplasty: PLAN: (1) S/P total right hip arthroplasty: PLAN: 1. S/P right posterior total hip arthroplasty POD #2 2. Continue Pain Medications: Tylenol and oxycodone 3. DVT Prophylaxis: Patient has been resumed on her Eliquis 5 mg twice daily. She does have past history of DVT 4. PT/OT: Weightbearing as tolerated with walker. Continue posterior hip dislocation precautions for 3 months postoperatively 5. Lab work has been reviewed. Patient did have mild drop in her hemoglobin currently at 8.5. Likely from acute blood loss from surgery but previous lab work shows chronically low. Patient also reports that she has had to be placed on iron in the past. She will be placed on folic acid and ferrous sulfate. Will need to recheck lab work at nursing facility upon discharge. I would defer chronic management to her primary care physician upon discharge. She currently denies any dizziness or lightheadedness. 6. Wound VAC: Patient will continue with VAC via incisional wound VAC for 1 week postoperatively. Removal date will be on January 04, 2023. While wearing the incisional wound VAC patient is not to get this area wet. Currently there is no output or drainage in the canister or tubing. 7. Continue postoperative medical management per medicine: Case was discussed with nursing and patient has been having some hypotension. She is on multiple medications and I would defer to medicine with management of her current blood pressure medications. this is improved. Last 24 hours her systolics 111-135/50-60. She currently denies any chest pain, shortness of breath. 8. Postoperative hypoxia: Patient currently on 2 L nasal oxygen. Satting 95%. Plan will be to try to wean patient off oxygen postoperatively. I did encouraged Incentive Spirometry. Patient does report having past history requiring oxygen due to low O2 saturation while in the long term. I would recommend maintaining O2 saturation greater than 92% upon discharge. 9. Currently on doxycycline for 2 weeks postoperatively due to BMI 45.0 as well as high risk due to [facility] facility care. I discussed with the patient potential side effects of doxycycline including sensitivity to the sunlight and increased risk of skin burn. Recommend patient take appropriate precautions. Also recommend patient to take probiotic while on the antibiotic. Patient voiced understanding agreement. 10. Disposition: Plan will be for possible discharge back to the [facility] facility at [facility] today. Will continue above treatment plan with wound VAC, medications, restrictions from physical therapy due to posterior hip procedure. Also recommend they continue to monitor her O2 saturation upon discharge at the long term and utilize nasal oxygen as needed. Would recommend repeat lab work upon discharge at the [facility] facility in approximately 3 days. I would defer further treatment with regards to her chronic anemia to the primary care physician. Case management is currently involved for appropriate discharge planning.
[2022-12-30] MEDS: Ferrous Sulfate 325 MG Tablet PO (11:30)
--- NOTE | 2022-12-30 11:46 | DCINST_ITS ---
Discharge Instructions Diet Discharge Diet: No restrictions Activity Discharge Activity: Return to Normal Activity Weight Bearing Status: Weight bearing as tolerated Lifting Restrictions: posteriro hip precautions Dressing / Incision Call your doctor if your incision/area has: Continuous Slow Oozing, Sudden Increased Bleeding, Increased Pain/ Swelling, Increased Redness, Foul Smelling Discharge and Swelling at the incision site Call your doctor if you observe: Fever of 101 or Higher, Dizziness, Chest pain and Calf discomfort Change Dressing in: do not change dressing Remove Dressing in: Jan 04 Cleanse incision/area with: Soap & Water and Keep Dressing Clean & Dry Additional Dressing/Incision Instructions:: VAC via incisional wound VAC for 1 week postoperatively. Removal date will be on January 04, 2023. While wearing the incisional wound VAC patient is not to get this area wet. Follow Up Care When: as previously scheduled. 2 weeks post op visit with [facility] Test Results: Test results from this visit will be discussed in further detail at your follow- up appointment, if applicable. Discharge Plan Admission Admit Date/Time: 12/28/22 07:09 Attending Provider: Chay Johnson Primary Care Provider: Chay Solis Consulting Providers: Pablo Virk Discharge Orders/Prescriptions Prescriptions: New doxycycline monohydrate 100 mg Capsule 100 mg PO BID 12 Days Qty: 24 0RF ferrous sulfate [FeroSul] 325 mg (65 mg iron) Tablet 325 mg PO 1200,1700 Qty: 60 0RF folic acid 1 mg Tablet 1 mg PO BREAKFAST Qty: 60 0RF sennosides-docusate sodium [Stool Softener-Stimulant Laxat] 8.6-50 mg Tablet 2 tab PO BID Qty: 14 0RF oxycodone 5 mg Tablet 5 - 10 mg PO .4-6hours prn PRN (Reason: Pain Score 4-10) 7 Days Qty: 42 0RF acetaminophen 500 mg Tablet 1,000 mg PO Q8 Qty: 120 0RF Continued paroxetine HCl 40 mg tablet 1 ea PO DAILY Patient Comments: take 1 tablet by mouth once daily losartan-hydrochlorothiazide 100-25 mg tablet 1 tab PO DAILY albuterol sulfate 2.5 mg /3 mL (0.083 %) solution for nebulization 2.5 mg continuous nebulization Q8H PRN (Reason: shortness of breath or wheezing) potassium chloride 20 mEq tablet,ER particles/crystals 20 meq PO DAILY PRN PRN (Reason: LOW POTASSIUM) multivitamin 1 EACH tablet 1 tab PO DAILY Patient Comments: supplement calcium carbonate 600 MG tablet 600 mg PO DAILY Patient Comments: supplement latanoprost 0.005 % drops 1 drp EACH EYE DAILY Patient Comments: place 1 drop into both eyes every evening pramipexole 0.5 mg tablet 0.5 mg PO BID Patient Comments: take 2 tablets by mouth at bedtime pantoprazole 40 mg tablet,delayed release (DR/EC) 40 mg PO DAILY Patient Comments: take 1 tablet by mouth once daily Eliquis 5 mg tablet 5 mg PO BID Patient Comments: take 1 tablet by mouth twice a day furosemide 40 mg Tablet 40 mg PO DAILY aspirin 81 mg Tablet,Delayed Release (Dr/Ec) 81 mg PO BREAKFAST Qty: 0 0RF atorvastatin 40 mg Tablet 40 mg PO QHS Qty: 0 0RF ergocalciferol (vitamin D2) [Vitamin D2] 1,250 mcg (50,000 unit) Capsule 1,250 mcg PO Q7D 49 Days Qty: 7 0RF metoprolol succinate 25 mg Tablet Extended Release 24 Hr 25 mg PO DAILY Qty: 0 0RF nystatin [Nyamyc] 100,000 unit/gram Powder 1 applic topical BID Qty: 0 0RF Protocol: *Topical Application Instructions APPLICATION INSTRUCTIONS: Under bilateral breasts and groin diclofenac sodium 1 % gel 4 g TOPICAL BID PRN PRN (Reason: RT KNEE PAIN) calcium carbonate-vitamin D2 600 mg calcium- 200 unit tablet 2 tab PO DAILY Held acetaminophen [Tylenol] 325 mg capsule 325 mg PO Q4H PRN (Reason: fever or pain) Hold Instructions: Resume on 02/03/23. Referrals / Follow Up: Chay Solis MD [Primary Care Provider] - Shad Trujillo PA-C [Med Staff - Count Includes [facility] Practice Prof] - 01/13/23 9:15 am Disposition Disposition (needs filled in before D/C Order can be placed): [facility]
--- NOTE | 2022-12-30 11:48 | PCM.TXEXTCAR ---
Diet Diet Order/Speech Therapy: 12/29/22 05:04 Diet: Regular - General Is pt able to select menu?: Yes Routine Orders/Code Status O2 Liters per Minute: 2 Keep PO Greater than or Equal to (%): 92 (keep O2 sats >92%) Routine Lab Work: CBC (in 2-3 days. follow up with PCP regarding anemia. ) Wound(s) R HIP: Wound Type: Surgical Incision R THIGH: Wound Type: Skin Tear R POSTERIOR HIP: Wound Type: Surgical Incision Suggestions for Active Care Positions to Avoid: posterior hip precautions x 3 months Therapies Weight Bearing: Full weight bearing Physical Therapy: Eval and Treat Occupational Therapy: Eval and Treat Problem/Diagnosis (1) S/P total right hip arthroplasty: Status: Acute Code(s): Z96.641 - Presence of right artificial hip joint Plan: (1) S/P total right hip arthroplasty: PLAN: 1. S/P right posterior total hip arthroplasty POD #2 2. Continue Pain Medications: Tylenol and oxycodone 3. DVT Prophylaxis: Patient has been resumed on her Eliquis 5 mg twice daily. She does have past history of DVT 4. PT/OT: Weightbearing as tolerated with walker. Continue posterior hip dislocation precautions for 3 months postoperatively 5. Lab work has been reviewed. Patient did have mild drop in her hemoglobin currently at 8.5. Likely from acute blood loss from surgery but previous lab work shows chronically low. Patient also reports that she has had to be placed on iron in the past. She will be placed on folic acid and ferrous sulfate. Will need to recheck lab work at nursing facility upon discharge. I would defer chronic management to her primary care physician upon discharge. She currently denies any dizziness or lightheadedness. 6. Wound VAC: Patient will continue with VAC via incisional wound VAC for 1 week postoperatively. Removal date will be on January 04, 2023. While wearing the incisional wound VAC patient is not to get this area wet. Currently there is no output or drainage in the canister or tubing. 7. Continue postoperative medical management per medicine: Case was discussed with nursing and patient has been having some hypotension. She is on multiple medications and I would defer to medicine with management of her current blood pressure medications. this is improved. Last 24 hours her systolics 111-135/50-60. She currently denies any chest pain, shortness of breath. 8. Postoperative hypoxia: Patient currently on 2 L nasal oxygen. Satting 95%. Plan will be to try to wean patient off oxygen postoperatively. I did encouraged Incentive Spirometry. Patient does report having past history requiring oxygen due to low O2 saturation while in the [facility]. I would recommend maintaining O2 saturation greater than 92% upon discharge. 9. Currently on doxycycline for 2 weeks postoperatively due to BMI 45.0 as well as high risk due to long term facility care. I discussed with the patient potential side effects of doxycycline including sensitivity to the sunlight and increased risk of skin burn. Recommend patient take appropriate precautions. Also recommend patient to take probiotic while on the antibiotic. Patient voiced understanding agreement. 10. Disposition: Plan will be for possible discharge back to the long term facility at [facility] when medically stable. Will continue above treatment plan with wound VAC, medications, restrictions from physical therapy due to posterior hip procedure. Also recommend they continue to monitor her O2 saturation upon discharge at the halfway and utilize nasal oxygen as needed. Would recommend repeat lab work upon discharge at the long term facility in approximately 3 days. I would defer further treatment with regards to her chronic anemia to the primary care physician. Case management is currently involved for appropriate discharge planning. Allergies/Procedures Done in Hospital Allergies Penicillins [PCN] Allergy (Verified 12/28/22 07:05) Hives Type of Care/Length of Stay Estimated LOS: Convalescent Care Less Than 30 days Type of Care Needed: Skilled Rehab Potential: Good Prognosis: Good Additional Orders/Day of Discharge Day of Discharge: 12/30/22 Discharge Plan Admission Admit Date/Time: 12/28/22 07:09 Attending Provider: Chay Johnson Primary Care Provider: Chay Solis Consulting Providers: Pablo Virk Discharge Orders/Prescriptions Prescriptions: New doxycycline monohydrate 100 mg Capsule 100 mg PO BID 12 Days Qty: 24 0RF ferrous sulfate [FeroSul] 325 mg (65 mg iron) Tablet 325 mg PO 1200,1700 Qty: 60 0RF folic acid 1 mg Tablet 1 mg PO BREAKFAST Qty: 60 0RF sennosides-docusate sodium [Stool Softener-Stimulant Laxat] 8.6-50 mg Tablet 2 tab PO BID Qty: 14 0RF oxycodone 5 mg Tablet 5 - 10 mg PO .4-6hours prn PRN (Reason: Pain Score 4-10) 7 Days Qty: 42 0RF acetaminophen 500 mg Tablet 1,000 mg PO Q8 Qty: 120 0RF Continued paroxetine HCl 40 mg tablet 1 ea PO DAILY Patient Comments: take 1 tablet by mouth once daily losartan-hydrochlorothiazide 100-25 mg tablet 1 tab PO DAILY albuterol sulfate 2.5 mg /3 mL (0.083 %) solution for nebulization 2.5 mg continuous nebulization Q8H PRN (Reason: shortness of breath or wheezing) potassium chloride 20 mEq tablet,ER particles/crystals 20 meq PO DAILY PRN PRN (Reason: LOW POTASSIUM) multivitamin 1 EACH tablet 1 tab PO DAILY Patient Comments: supplement calcium carbonate 600 MG tablet 600 mg PO DAILY Patient Comments: supplement latanoprost 0.005 % drops 1 drp EACH EYE DAILY Patient Comments: place 1 drop into both eyes every evening pramipexole 0.5 mg tablet 0.5 mg PO BID Patient Comments: take 2 tablets by mouth at bedtime pantoprazole 40 mg tablet,delayed release (DR/EC) 40 mg PO DAILY Patient Comments: take 1 tablet by mouth once daily Eliquis 5 mg tablet 5 mg PO BID Patient Comments: take 1 tablet by mouth twice a day furosemide 40 mg Tablet 40 mg PO DAILY aspirin 81 mg Tablet,Delayed Release (Dr/Ec) 81 mg PO BREAKFAST Qty: 0 0RF atorvastatin 40 mg Tablet 40 mg PO QHS Qty: 0 0RF ergocalciferol (vitamin D2) [Vitamin D2] 1,250 mcg (50,000 unit) Capsule 1,250 mcg PO Q7D 49 Days Qty: 7 0RF metoprolol succinate 25 mg Tablet Extended Release 24 Hr 25 mg PO DAILY Qty: 0 0RF nystatin [Nyamyc] 100,000 unit/gram Powder 1 applic topical BID Qty: 0 0RF Protocol: *Topical Application Instructions APPLICATION INSTRUCTIONS: Under bilateral breasts and groin diclofenac sodium 1 % gel 4 g TOPICAL BID PRN PRN (Reason: RT KNEE PAIN) calcium carbonate-vitamin D2 600 mg calcium- 200 unit tablet 2 tab PO DAILY Held acetaminophen [Tylenol] 325 mg capsule 325 mg PO Q4H PRN (Reason: fever or pain) Hold Instructions: Resume on 02/03/23. Referrals / Follow Up: Chay Solis MD [Primary Care Provider] - Shad Trujillo PA-C [Med Staff - Adv Practice Prof] - 01/13/23 9:15 am Disposition Disposition (needs filled in before D/C Order can be placed): [facility]
--- NOTE | 2022-12-30 12:44 | CASEMGMT ---
Discharge Planning Discharge orders, signed med list and [facility] will transport patient by wheelchair (patient has own wheelchair) at 2:30p. Nursing, SW, and patient updated. left for patients son. Brittany Chapman, Discharge Planning Asst.
[2022-12-30 12:58] LABS: Hematocrit 30.4 % (37-47); Hemoglobin 9.4 g/dL (12.0-15.0)
[2022-12-30] MEDS: Metoprolol(XL)Succ 25 MG Tablet PO (13:08)
[2022-12-30] MEDS: Furosemide 40 MG Tablet PO (13:08)
[2022-12-30] MEDS: hydroCHLOROthiazide 25 MG Tablet PO (13:08)
[2022-12-30] MEDS: Losartan Potassium 100 MG Tablet PO (13:08)
[2022-12-30] MEDS: oxyCODONE 5 MG Tablet PO (14:12)
== END 2022-12-30 14:25 | disposition skilled nursing facility (03) ==
LOC: SDC 12:59 → MS3 12:59
PROVIDERS: Family Medicine; Admitting Provider Specialist; PCP Family Medicine; Referring Provider Specialist; Visit Provider Specialist
PROC: 8E0Y0CZ Robotic Assisted Procedure of Lower Extremity, Open Approach (ICD-10-PCS; CPT 27130; principal; 2022-12-28 08:15)
DX: M87.051 Idiopathic aseptic necrosis of right femur (principal); I11.0 Hypertensive heart disease with heart failure; I50.9 Heart failure, unspecified; Z68.42 Body mass index [BMI] 45.0-49.9, adult; E66.01 Morbid (severe) obesity due to excess calories; E78.5 Hyperlipidemia, unspecified; G47.30 Sleep apnea, unspecified; E55.9 Vitamin D deficiency, unspecified; E87.6 Hypokalemia; Z99.3 Dependence on wheelchair; K21.9 Gastro-esophageal reflux disease without esophagitis; Z86.718 Personal history of other venous thrombosis and embolism; Z79.01 Long term (current) use of anticoagulants; Z79.899 Other long term (current) drug therapy; Z79.82 Long term (current) use of aspirin; R09.02 Hypoxemia
CPT/HCPCS: 27130; S2900; 01214; 36415; 73502; 80048; 82565; 82962; 85014; 85018; 85027; 88305; 88311; 94668; 94762; 96361; 96365; 96366; 96367; 97110; 97116; 97162; 97166; 97530; 97535; 99221; 99252; C1776; J7040; J7050; J7120; A4216; G0378; G0463; J2405

== ENCOUNTER 2024-01-19 12:49 | Inpatient (IN) | payer MEDICARE, MEDICAID, SELFPAY ==
[2024-01-19] VITALS (29 sets, daily range): BP systolic 74–139; BP diastolic 40–74; PULSE 85–124; RESP 16–30; TEMP 36.2–39.3; O2SAT 90–100; BMI 48.0; BMI 47.7
--- NOTE | 2024-01-19 13:06 | EKG12_ITS ---
Test Reason : SOB Blood Pressure : */* mmHG Vent. Rate : 121 BPM Atrial Rate : 121 BPM P-R Int : 150 ms QRS Dur : 126 ms QT Int : 328 ms P-R-T Axes : 11 13 25 degrees QTcB Int : 465 ms Sinus tachycardia Right bundle branch block Abnormal ECG Confirmed by KENNY GEORGE, ROYER ([id number]), technical writer and editor ELIAS MIDDLETON ([id number]) on 01/23/2024 8:02:56 A M Referred By: Rickey Tatum Confirmed By: ROYER COX MD
--- NOTE | 2024-01-19 13:20 | RAD_ITS ---
STUDY: X-RAY CHEST REASON FOR EXAM: Female, 83 years old. SOB TECHNIQUE: Single AP portable view of the chest. COMPARISON: May 30, 2022. FINDINGS: There are mild left lower lung linear opacities with scarring or atelectasis. There is no demonstrated pleural abnormality. Normal size heart. Normal mediastinum and radha. Normal visualized pulmonary arteries. There is atherosclerotic calcification of the aortic arch with tortuosity. There is demineralization of the osseous structures. Right shoulder replacement. Degenerative change of the left shoulder. There is no demonstrated abnormality of the visualized soft tissue structures of the upper abdomen. RAD/Chest 1 View (Portable) IMPRESSION: Left lower lung scarring or atelectasis. Electronically Signed: Saúl Krishna MD at 13:45 EST ,
[2024-01-19] MEDS: Acetaminophen 325 MG Tablet 650 MG PO (13:24)
[2024-01-19 13:39] LABS: Allen Test Positive; Base Excess 8 mmol/L (-2 to +2); Bicarbonate 29.7 mmol/L (22-26); Blood Gas Specimen Type ART; Mode Not entered; O2 Delivery Device Cannula; PO2 110 mmHG (75-100); SITE R Radial; SO2 99 % (95-99); Total Carbon Dioxide 31 mmol/L; pCO2 32.6 mmHg (35-45); pH 7.57 (7.35-7.45)
[2024-01-19 13:40] LABS: Absolute Lymphocyte Count 0.48 X10^3/uL (0.83-4.51); Absolute Neutrophil Count 7.7 X10^3/uL (2.0-7.7); Basophil# 0.02 X10^3/uL; Basophil% 0.2 % (0-1); Eosinophil# 0.01 X10^3/uL; Eosinophils% 0.1 % (0-5); Hematocrit 31.3 % (37-47); Hemoglobin 9.8 g/dL (12.0-15.0); Lymphocyte # 0.48 X10^3/ul (0.83-4.51); Lymphocyte % 5.6 % (19-41); Mean Corp Hgb Conc 31.3 g/dL (32-36); Mean Corpuscular Hgb 30.2 pg (27.0-32.0); Mean Corpuscular Volume 96.3 fL (81-99); Mean Platelet Vol. 10.1 fl (6.2-12.0); Monocyte# 0.37 X10^3/uL; Monocyte% 4.3 % (0-10); NRBC Flagged by Analyzer 0 % (0-5); Neutrophil # 7.73 X10^3/uL (2.7-7.7); Neutrophil % 89.6 % (47-70); POSITIVE DIFFERENTIAL YES; Platelet Count 140 K/mm3 (150-450); RBC Distribution Width CV 13.8 % (11.6-14.6); RBC Distribution Width SD 49.5 fl (35.1-43.9); Red Blood Count 3.25 M/mm3 (4.2-5.4); White Blood Count 8.6 K/mm3 (4.4-11.0)
[2024-01-19 13:42] LABS: International Normalized Ratio 1.4; Partial Thromboplast Time 36.8 Seconds (24.1-36.2); Prothrombin Time (Protime)PT. 17.5 SECONDS (11.7-14.9)
[2024-01-19 13:50] LABS: ALB/GLOB Ratio 0.6 RATIO (0.9-2.4); AST(SGOT) 41 U/L (15-37); Alanine Aminotransfer ALT/SGPT 22 U/L (13-56); Albumin, Serum 2.8 g/dL (3.2-5.0); Alkaline Phosphatase 107 U/L (45-117); Anion Gap 5 (5-15); BUN 30 mg/dL (7-18); BUN/Creat Ratio 27.8 RATIO (10-20); Calcium,Total 9.8 mg/dL (8.5-10.1); Chloride 97 mmol/L (98-107); Creatinine, Serum 1.08 mg/dL (0.55-1.02); EST Glomerular Filtration Rate 52 mL/min (>60); Est Glom Filt Rate - Afr Amer 62 mL/min (>60); Estimated Creatinine Clearance 53.02 ml/min; Globulin 4.4 g/dL (2.2-4.2); Glucose 94 mg/dL (74-106); Potassium 3.9 mmol/L (3.5-5.1); Protein, Total 7.2 g/dL (6.4-8.2); Sodium Level 134 mmol/L (136-145)
--- NOTE | 2024-01-19 13:57 | EDS_ITS ---
HPI History of Present Illness Chief Complaint: Shortness of Breath Informant: patient Narrative Narrative: Patient is an 83-year-old female with history of chronic edema of the legs, generalized weakness coronary artery disease, CHF, hyperlipidemia, PE, chronic a nticoagulation on Eliquis and sleep apnea presenting for worsening shortness of breath. Patient states she has been feeling unwell all week and was diagnosed with a UTI at her nursing facility today. She was ordered Levaquin but does not appear that she has started it. She reportedly became acutely short of breath today was noted to be 70% on room air. She notes that she normally wears oxygen when she is in her room but not otherwise. Denies any new swelling. Did receive breathing treatments en route. [facility] Medical History Cardiology follow-up encounter History of echocardiogram Difficult intravenous access Loss of hearing History of radiation therapy Walker as ambulation aid Uses wheelchair Arthritis Urinary frequency Easy bruising Vertigo Dietary restriction History of hiatal hernia Non-smoker Chronic cough Wears dentures Wears glasses Anxiety History of edema History of heart attack HLD (hyperlipidemia) History of CHF (congestive heart failure) Sleep apnea Depression History of embolism Insomnia Shortness of breath on exertion GERD (gastroesophageal reflux disease) Left shoulder pain Osteopenia Anasarca Hypertension Congestive heart failure (CHF) Restless leg syndrome Home Medications ?Medication ?Instructions ?Recorded ?Last Taken ?Type calcium carbonate 600 mg PO DAILY Check with primary 01/14/15 Unknown History doctor multivitamin 1 tab PO DAILY Check with primary 01/14/15 Unknown History doctor losartan 100 1 tab PO DAILY blood pressure 02/12/20 Unknown History mg-hydrochlorothiazide 25 mg tablet paroxetine HCl 40 mg tablet 1 ea PO DAILY Check with primary 02/12/20 Unknown History doctor apixaban 5 mg tablet (Eliquis) 5 mg PO BID blood clot 05/30/22 12/22/22 History latanoprost 0.005 % eye drops 1 drp EACH EYE DAILY glac[place] 05/30/22 Unknown History pantoprazole 40 mg tablet,delayed 40 mg PO DAILY Check with primary 05/30/22 Unknown History release doctor pramipexole 0.5 mg tablet 0.5 mg PO BID restless leg 05/30/22 Unknown History furosemide 40 mg tablet 40 mg PO DAILY Leg Swelling 05/31/22 Unknown History aspirin 81 mg tablet,delayed 81 mg PO BREAKFAST #0 tabs 06/03/22 12/22/22 Rx release atorvastatin 40 mg tablet 40 mg PO QHS #0 tabs 06/03/22 Unknown Rx ergocalciferol (vitamin D2) 1,250 1,250 mcg PO Q7D 7 weeks #7 caps 06/03/22 12/22/22 Rx mcg (50,000 unit) capsule (Vitamin D2) metoprolol succinate 25 mg 25 mg PO DAILY #0 tabs 06/03/22 Unknown Rx tablet,extended release 24 hr nystatin 100,000 unit/gram topical 1 applic topical BID #0 grams 06/03/22 Unknown Rx powder ([facility]) albuterol sulfate 2.5 mg/3 mL 2.5 mg continuous nebulization Q8H 08/03/22 Unknown History (0.083 %) solution for nebulization PRN shortness of breath or wheezing potassium chloride 20 mEq 40 meq PO DAILY PRN PRN LOW 08/03/22 Unknown History tablet,extended release(part/cryst) POTASSIUM calcium carb-ergocalciferol (vit 2 tab PO DAILY 12/19/22 Unknown History D2) 600 mg calcium-200 unit tablet diclofenac sodium 1 % topical gel 4 g topical BID PRN PRN RT KNEE 12/19/22 Unknown History PAIN acetaminophen 500 mg tablet 1,000 mg (2 x 500 mg) PO Q8 #120 12/30/22 Unknown Rx tabs ferrous sulfate 325 mg (65 mg 325 mg PO 1200,1700 #60 tabs 12/30/22 Unknown Rx iron) tablet (FeroSul) folic acid 1 mg tablet 1 mg PO BREAKFAST #60 tabs 12/30/22 Unknown Rx sennosides 8.6 mg-docusate sodium 2 tab PO BID #14 tabs 12/30/22 Unknown Rx 50 mg tablet (Stool Softener-Stimulant Laxative) acetaminophen 325 mg tablet 650 mg PO Q4H PRN pain 01/19/24 Unknown History albuterol sulfate 90 mcg/actuation inhalation 01/19/24 Unknown History aerosol inhaler duloxetine 30 mg capsule,delayed 30 mg PO DAILY 01/19/24 Unknown History release Allergy/AdvReac Type Severity Reaction Status Date / Time Penicillins (PCN) Allergy Hives Verified 01/19/24 12:51 Family History Other COPD (chronic obstructive pulmonary disease) Hypertension Surgical History History of cardiac catheterization History of shoulder surgery History of carpal tunnel surgery of right wrist History of endometrial ablation History of carpal tunnel surgery of left wrist History of hysterectomy History of dilation and curettage History of tooth extraction History of rotator cuff surgery History of left hip replacement History of right shoulder replacement History of total replacement of left shoulder joint Status post right partial knee replacement History of total left knee replacement History of total left hip replacement Social History Smoking Status: Never smoker ROS ROS ED Constitutional Constitutional ED: Reports other Details: Reports generalized malaise and not feeling well for the past week ; Denies chills or fever(s) ENT ENT ED: Denies sore throat Cardiovascular Cardiovascular: Denies chest pain or palpitations Respiratory/Chest Respiratory/Chest: Reports cough and dyspnea Gastrointestinal Gastrointestinal: Denies abdominal pain, nausea or vomiting Musculoskeletal Musculoskeletal: Reports myalgias; Denies arthralgias Integumentary Denies rash Neurologic Neurologic: Reports weakness Hematologic/Lymphatic Hematologic/Lymphatic: Reports easy bleeding and easy bruising EXAM Physical Exam Const Vital Signs: 01/19/24 12:51 01/19/24 13:01 01/19/24 13:02 Temperature 102.8 F H 102.8 F H Temperature Source Axillary Axillary Pulse Rate 124 H 123 H Respiratory Rate 20 H 21 H Respiratory Effort Short of Breath Labored Blood Pressure 109/56 L Blood Pressure Mean 73 Pulse Ox 96 99 Oxygen Delivery Method Non-Rebreather Venturi Mask Venturi Mask Oxygen Flow Rate (L/min) 8 12 Fraction of Inspired Oxygen (FIO2) 35 01/19/24 13:33 01/19/24 14:01 01/19/24 14:33 Temperature 98.3 F Temperature Source Oral Pulse Rate 102 H 104 H Respiratory Rate 22 H 20 H Respiratory Effort Blood Pressure 92/42 L Blood Pressure Mean 58 Pulse Ox 99 100 99 Oxygen Delivery Method Nasal Cannula Nasal Cannula Oxygen Flow Rate (L/min) 5 3 Fraction of Inspired Oxygen (FIO2) Positive obese Constitutional Narrative: Anxious, uncomfortable. Nutritional Appearance: obese HEENT Reports moist mucous membranes Eyes PERRL and EOMs intact bilaterally Neck supple and no JVD Resp Resp Narrative: Mild tachypnea. Breath sounds throughout. No significant wheezing, rhonchi or crackles appreciated Cardio Rate: tachycardic GI non-tender and non-distended Extremity Extremity Narrative: Chronic appearing lymphedema of the lower extremities, no pedal edema Neuro oriented x3 Sensorium / Orientation: alert Motor Exam: general weakness Psych mental status grossly normal Mood & Affect: anxious Skin no wounds MDM MDM MDM Narrative Medical decision making narrative: Patient evaluated for acute hypoxia and shortness of breath at nursing facility. She apparently was diagnosed with a UTI today and started on Levaquin. She does wear oxygen in her room but states she does not normally wear it when she leaves her room. Patient's O2 sat reportedly was in the 70s prior to arrival and was very diminished when EMS arrived to. She was given breathing treatments and route. Patient's vital signs significant for tachycardia and fever in the emergency room. She is initially on nonrebreather with FiO2 of 35 at 8 L but is titrated down to nasal cannula. Sepsis/respiratory workup is initiated. Suspicion for pulmonary emboli as patient is anticoagulated on Eliquis. Patient's urinalysis is consistent with UTI and will send for culture. Blood cultures are pending. Her lactate is elevated at 2.6. CBC shows normal white blood cell count and no shift. Hemoglobin is at her baseline at 9.8. ABG obtained because of her work of breathing upon arrival. Patient has what appe ars to be chronic hypercapnia with acute hyperventilation and respiratory alkalosis. COVID flu and RSV are negative. Chest x-ray reviewed by myself as well as Attestation: I reviewed the patient's lab results. Labs: Laboratory Results - last 24 hr 01/19/24 01/19/24 13:20 13:50 WBC 8.6 RBC 3.25 L Hgb 9.8 L Hct 31.3 L MCV 96.3 MCH 30.2 MCHC 31.3 L RDW Std Deviation 49.5 H RDW Coeff of Beth 13.8 Plt Count 140 L MPV 10.1 Immature Gran % (Auto) 0.200 Neut % (Auto) 89.6 H Lymph % (Auto) 5.6 L [place] % (Auto) 4.3 Eos % (Auto) 0.1 Baso % (Auto) 0.2 Absolute Neuts (auto) 7.7 Absolute Lymphs (auto) 0.48 L Nucleated RBC % 0 PT 17.5 H INR 1.4 APTT 36.8 H Sodium 134 L Potassium 3.9 Chloride 97 L Carbon Dioxide 32.0 Anion Gap 5 BUN 30 H Creatinine 1.08 H Estim Creat Clear Calc 53.02 Est GFR (MDRD) Af Amer 62 Est GFR (MDRD) Non-Af 52 L BUN/Creatinine Ratio 27.8 H Glucose 94 Lactic Acid 2.6 H* Calcium 9.8 Total Bilirubin 1.40 H AST 41 H ALT 22 Alkaline Phosphatase 107 B-Natriuretic Peptide 72.9 Total Protein 7.2 Albumin 2.8 L Globulin 4.4 H Albumin/Globulin Ratio 0.6 L Urine Color Julia Urine Clarity Cloudy Urine pH 6.0 Ur Specific [place] 1.015 Urine Protein 100 H Urine Glucose (UA) Normal Urine Ketones Negative Urine Occult Blood 250 H Urine Nitrite Positive H Urine Bilirubin Negative Urine Urobilinogen Normal Ur Leukocyte Esterase 500 H ABG Data ABG results: ABG 01/19/24 13:33 Specimen Type ART Sample Site R Radial pH 7.57 H Bicarbonate Actual 29.7 H Total CO2 31 Base Excess 8 H O2 Saturation 99 O2 % 5.0 ABG pCO2 32.6 L ABG pO2 110 H Ramirez Test Positive O2 Delivery Device Cannula Vent Mode Not entered Radiography Chest X-Ray - ED: 1 View, Read by ED Physician, Read by Radiologist and No Acute Disease Diagnostic Testing: Clinical Impression(s) from Imaging Studies Chest X-Ray 01/19/24 13:20 IMPRESSION: Left lower lung scarring or atelectasis. Electronically Signed: Saúl Krishna MD at 13:45 EST , Rhythm Strip Rhythm Strip: Sinus Tach Rate: 121 Ectopy: None EKG Initial EKG: Attestation: I personally reviewed and interpreted this EKG as follows: Interpretation: Sinus Tachycardia Comments: Sinus tachycardia at a rate of 121 bpm Normal axis Normal intervals with right bundle branch block Normal ST segments Discharge Plan Triage Chief Complaint: Shortness of Breath ED Provider: Prachi Frias Dx/Rx/DC Orders Prescriptions: No Action paroxetine HCl 40 mg tablet 1 ea PO DAILY Patient Comments: take 1 tablet by mouth once daily losartan-hydrochlorothiazide 100-25 mg tablet 1 tab PO DAILY albuterol sulfate 2.5 mg /3 mL (0.083 %) solution for nebulization 2.5 mg continuous nebulization Q8H PRN (Reason: shortness of breath or wheezing) potassium chloride 20 mEq tablet,ER particles/crystals 40 meq PO DAILY PRN PRN (Reason: LOW POTASSIUM) multivitamin 1 EACH tablet 1 tab PO DAILY Patient Comments: supplement calcium carbonate 600 MG tablet 600 mg PO DAILY Patient Comments: supplement latanoprost 0.005 % drops 1 drp EACH EYE DAILY Patient Comments: place 1 drop into both eyes every evening pramipexole 0.5 mg tablet 0.5 mg PO BID Patient Comments: take 2 tablets by mouth at bedtime pantoprazole 40 mg tablet,delayed release (DR/EC) 40 mg PO DAILY Patient Comments: take 1 tablet by mouth once daily Eliquis 5 mg tablet 5 mg PO BID Patient Comments: take 1 tablet by mouth twice a day furosemide 40 mg Tablet 40 mg PO DAILY aspirin 81 mg Tablet,Delayed Release (Dr/Ec) 81 mg PO BREAKFAST Qty: 0 0RF atorvastatin 40 mg Tablet 40 mg PO QHS Qty: 0 0RF ergocalciferol (vitamin D2) [Vitamin D2] 1,250 mcg (50,000 unit) Capsule 1,250 mcg PO Q7D 49 Days Qty: 7 0RF metoprolol succinate 25 mg Tablet Extended Release 24 Hr 25 mg PO DAILY Qty: 0 0RF nystatin [Nyamyc] 100,000 unit/gram Powder 1 applic topical BID Qty: 0 0RF Protocol: *Topical Application Instructions APPLICATION INSTRUCTIONS: Under bilateral breasts and groin diclofenac sodium 1 % gel 4 g TOPICAL BID PRN PRN (Reason: RT KNEE PAIN) calcium carbonate-vitamin D2 600 mg calcium- 200 unit tablet 2 tab PO DAILY ferrous sulfate [FeroSul] 325 mg (65 mg iron) Tablet 325 mg PO 1200,1700 Qty: 60 0RF folic acid 1 mg Tablet 1 mg PO BREAKFAST Qty: 60 0RF sennosides-docusate sodium [Stool Softener-Stimulant Laxat] 8.6-50 mg Tablet 2 tab PO BID Qty: 14 0RF acetaminophen 500 mg Tablet 1,000 mg PO Q8 Qty: 120 0RF acetaminophen 325 mg tablet 650 mg PO Q4H PRN (Reason: pain) albuterol sulfate 90 mcg/actuation HFA aerosol inhaler inhalation duloxetine 30 mg capsule,delayed release(DR/EC) 30 mg PO DAILY Primary Care Provider: Maryanne Howard Referrals: Maryanne Howard MD [Primary Care Provider] - Print Language: Micronesian
[2024-01-19 14:03] LABS: Lactic Acid 2.6 mmol/L (0.4-1.9)
[2024-01-19 14:05] LABS: BNP,B-Type NATRIURETIC PEPTIDE 72.9 pg/mL (0-100)
[2024-01-19 14:18] LABS: Color, Urine Amber (Yellow); Glucose, Dipstick Normal (Normal); Ketone-Dipstick Negative (Negative); Leukocyte Esterase-Dipstick 500 /ul (Negative); Nitrite-Dipstick Positive (Negative); Occult Blood-Urine 250 /ul (Negative); Protein-Dipstick 100 mg/dl (Negative); Specific Gravity, Urine 1.015 (1.002-1.030); Urine Bilirubin Dipstick Negative (Negative); Urine Clarity Cloudy (Clear); Urine Urobilinogen Normal (Normal)
[2024-01-19 14:27] LABS: Bacteria 4+ /hpf (None Seen); Red Blood Cells-Urine 50-100 SEEN /hpf (0-5); Squamous Epithelial Cells - UA 0-5 SEEN /hpf (5-10); White Blood Cells >100 SEEN /hpf (0-5)
[2024-01-19 14:29] LABS: Transitional Epithelial - Ur 0-5 SEEN /hpf (0-5)
[2024-01-19 14:30] LABS: Mucous, Urine 2+ /hpf (<or=2+)
--- NOTE | 2024-01-19 14:54 | HP.PCM.HOS_ITS ---
HPI - General General Date of Admission: 01/19/24 Date of Service: 01/19/24 Chief Complaint: Shortness of breath, fatigue and UTI symptoms HPI Narrative ELÍAS AHN, is a 83 F who presented to [facility] ED on 01/19/2024 from care home for shortness of breath, worsening fatigue and UTI symptoms. Patient lives at [facility], has lived there for the past 1 and half years. She does not have a history of many UTIs. She started to develop UTI symptoms including burning with urination and increased frequency of urination about 2 to 3 days ago. She was started on p.o. Levaquin at the care home yesterday and took 1 dose of this. This morning she started to feel some shortness of breath and was found to be hypoxic with oxygen saturation in the 70s on room air. She notably wears supplemental oxygen when she is in her room but not when she is out of the room. Given the hypoxia, she was brought to the ED for further evaluation. She did receive a breathing treatment en route with some improvement in her shortness of breath and oxygen saturation. On arrival here she was found to be tachycardic to the 120s, mildly hypotensive and febrile to 102.8F. UA showed 500 leukocyte esterase, positive nitrites and 4+ bacteria. She also had a mild MARK noted with creatinine 1.08 and BUN of 30, and her lactic acid was elevated at 2.6. Chest x-ray was unremarkable. Given concern for UTI with sepsis, hospitalist was contacted for admission. I saw the patient at bedside in the ED. Patient was mildly fatigued appearing but otherwise laying back comfortably in bed in no acute distress. She is breathing comfortably on 4 L nasal cannula at rest with good oxygen saturations. Patient is on Lasix, losartan?hydrochlorothiazide and Toprol for history of HFpEF. States she has been taking all of these medications as prescribed. Notes that she has felt a bit dry over the last few days. She otherwise denies any fevers or chills currently. Denies any abdominal pain or suprapubic pain or discomfort. Will be admitted for further management. Importantly, IV fluids were held initially by the ED provider as patient's blood pressure was only borderline hypotensive and she has history of HFpEF. However, her blood pressure had dropped to the 90s over 40s when I saw her. She was given 1 L of normal saline over about an hour and notably remained stable on 4 L nasal cannula. However, her blood pressure did not improve at all. Given concern for sepsis, decision was made to give her further IV fluids and admit her to the ICU. In total she received 3 L of IV fluids and in the ICU she was noted to be responsive to this with blood pressure up to 117/66. She also remained stable on nasal cannula. [facility] Medical History Cardiology follow-up encounter History of echocardiogram Difficult intravenous access Loss of hearing History of radiation therapy Walker as ambulation aid Uses wheelchair Arthritis Urinary frequency Easy bruising Vertigo Dietary restriction History of hiatal hernia Non-smoker Chronic cough Wears dentures Wears glasses Anxiety History of edema History of heart attack HLD (hyperlipidemia) History of CHF (congestive heart failure) Sleep apnea Depression History of embolism Insomnia Shortness of breath on exertion GERD (gastroesophageal reflux disease) Left shoulder pain Osteopenia Anasarca Hypertension Congestive heart failure (CHF) Restless leg syndrome Home Medications ?Medication ?Instructions ?Recorded ?Last Taken ?Type calcium carbonate 600 mg PO DAILY Check with primary 01/14/15 Unknown History doctor multivitamin 1 tab PO DAILY Check with primary 01/14/15 Unknown History doctor losartan 100 1 tab PO DAILY blood pressure 02/12/20 Unknown History mg-hydrochlorothiazide 25 mg tablet paroxetine HCl 40 mg tablet 1 ea PO DAILY Check with primary 02/12/20 Unknown History doctor apixaban 5 mg tablet (Eliquis) 5 mg PO BID blood clot 05/30/22 12/22/22 History latanoprost 0.005 % eye drops 1 drp EACH EYE DAILY glacoma 05/30/22 Unknown History pantoprazole 40 mg tablet,delayed 40 mg PO DAILY Check with primary 05/30/22 Unknown History release doctor pramipexole 0.5 mg tablet 0.5 mg PO BID restless leg 05/30/22 Unknown History furosemide 40 mg tablet 40 mg PO DAILY Leg Swelling 05/31/22 Unknown History aspirin 81 mg tablet,delayed 81 mg PO BREAKFAST #0 tabs 06/03/22 12/22/22 Rx release atorvastatin 40 mg tablet 40 mg PO QHS #0 tabs 06/03/22 Unknown Rx ergocalciferol (vitamin D2) 1,250 1,250 mcg PO Q7D 7 weeks #7 caps 06/03/22 12/22/22 Rx mcg (50,000 unit) capsule (Vitamin D2) metoprolol succinate 25 mg 25 mg PO DAILY #0 tabs 06/03/22 Unknown Rx tablet,extended release 24 hr nystatin 100,000 unit/gram topical 1 applic topical BID #0 grams 06/03/22 Unknown Rx powder (Nyamyc) albuterol sulfate 2.5 mg/3 mL 2.5 mg continuous nebulization Q8H 08/03/22 Unknown History (0.083 %) solution for nebulization PRN shortness of breath or wheezing potassium chloride 20 mEq 40 meq PO DAILY PRN PRN LOW 08/03/22 Unknown History tablet,extended release(part/cryst) POTASSIUM calcium carb-ergocalciferol (vit 2 tab PO DAILY 12/19/22 Unknown History D2) 600 mg calcium-200 unit tablet diclofenac sodium 1 % topical gel 4 g topical BID PRN PRN RT KNEE 12/19/22 Unknown History PAIN acetaminophen 500 mg tablet 1,000 mg (2 x 500 mg) PO Q8 #120 12/30/22 Unknown Rx tabs ferrous sulfate 325 mg (65 mg 325 mg PO 1200,1700 #60 tabs 12/30/22 Unknown Rx iron) tablet (FeroSul) folic acid 1 mg tablet 1 mg PO BREAKFAST #60 tabs 12/30/22 Unknown Rx sennosides 8.6 mg-docusate sodium 2 tab PO BID #14 tabs 12/30/22 Unknown Rx 50 mg tablet (Stool Softener-Stimulant Laxative) acetaminophen 325 mg tablet 650 mg PO Q4H PRN pain 01/19/24 Unknown History albuterol sulfate 90 mcg/actuation inhalation 01/19/24 Unknown History aerosol inhaler duloxetine 30 mg capsule,delayed 30 mg PO DAILY 01/19/24 Unknown History release Allergy/AdvReac Type Severity Reaction Status Date / Time Penicillins (PCN) Allergy Hives Verified 01/19/24 12:51 Family History Other COPD (chronic obstructive pulmonary disease) Hypertension Surgical History History of cardiac catheterization History of shoulder surgery History of carpal tunnel surgery of right wrist History of endometrial ablation History of carpal tunnel surgery of left wrist History of hysterectomy History of dilation and curettage History of tooth extraction History of rotator cuff surgery History of left hip replacement History of right shoulder replacement History of total replacement of left shoulder joint Status post right partial knee replacement History of total left knee replacement History of total left hip replacement Social History Smoking Status: Never smoker ROS Constitutional Constitutional: Reports fatigue; Denies chills, fever(s) or weakness Eyes Eyes: Denies change in vision Cardiovascular Cardiovascular: Denies chest pain Respiratory/Chest Respiratory/Chest: Reports cough and shortness of breath at rest; Denies productive cough or wheezing Gastrointestinal Gastrointestinal: Denies abdominal pain Genitourinary Genitourinary: Reports burning urination, dysuria and urinary frequency Musculoskeletal Musculoskeletal: Denies arthralgias or myalgias Neurologic Neurologic: Denies dizziness, focal weakness or headache(s) Vital Signs Vital Signs Vital Signs: 01/19/24 12:51 01/19/24 13:01 01/19/24 13:02 Temperature 102.8 F H 102.8 F H Temperature Source Axillary Axillary Pulse Rate 124 H 123 H Respiratory Rate 20 H 21 H Respiratory Effort Short of Breath Labored Blood Pressure 109/56 L Blood Pressure Mean 73 Pulse Ox 96 99 Oxygen Delivery Method Non-Rebreather Venturi Mask Venturi Mask Oxygen Flow Rate (L/min) 8 12 Fraction of Inspired Oxygen (FIO2) 35 01/19/24 13:33 01/19/24 14:01 01/19/24 14:33 Temperature 98.3 F Temperature Source Oral Pulse Rate 102 H 104 H Respiratory Rate 22 H 20 H Respiratory Effort Blood Pressure 92/42 L Blood Pressure Mean 58 Pulse Ox 99 100 99 Oxygen Delivery Method Nasal Cannula Nasal Cannula Oxygen Flow Rate (L/min) 5 3 Fraction of Inspired Oxygen (FIO2) Weight Weight: 127 kg Body Mass Index (BMI) 48.0 Physical Exam Const alert, oriented x3 and no apparent distress Constitutional Narrative: Elderly female, morbidly obese, mildly fatigued appearing but otherwise laying back comfortably in bed, conversing normally, in no acute distress. General Appearance: cooperative and comfortable HEENT normocephalic, head/scalp atraumatic, hearing grossly normal bilaterally and nasal mucous membranes and turbinates normal HEENT Narrative: Dry mucous membranes. Eyes PERRL, EOMs intact bilaterally and conjunctivae normal Neck full ROM Chest inspection of chest normal Resp normal respiratory effort and no use of accessory muscles Resp Narrative: Breathing comfortably on 4 L nasal cannula at rest. Moderately decreased breath sounds bilaterally throughout, likely due to body habitus. No wheezing or crackles noted. Cardio no murmurs and peripheral pulses 2+ throughout Cardio Narrative: Sinus tachycardia. GI normal to inspection, nondistended, normoactive bowel sounds, soft to palpation, non-tender and non-distended no CVA tenderness Bladder / Kidney Exam: No catheter in place and bladder normal to palpation Back/Spine normal ROM Extremity full ROM Extremity Narrative: Chronic venous stasis changes, otherwise no lower extremity swelling noted. Skin no rashes or lesions noted Psych mental status grossly normal Results Lab / Micro Data 01/19/24 13:20 01/19/24 13:20 Labs: Laboratory Results - last 24 hr 01/19/24 13:20: WBC 8.6, RBC 3.25 L, Hgb 9.8 L, Hct 31.3 L, MCV 96.3, MCH 30.2, MCHC 31.3 L, RDW Std Deviation 49.5 H, RDW Coeff of Beth 13.8, Plt Count 140 L, MPV 10.1, Immature Gran % (Auto) 0.200, Neut % (Auto) 89.6 H, Lymph % (Auto) 5.6 L, [place] % (Auto) 4.3, Eos % (Auto) 0.1, Baso % (Auto) 0.2, Absolute Neuts (auto) 7.7, Absolute Lymphs (auto) 0.48 L, Nucleated RBC % 0, PT 17.5 H, INR 1.4, APTT 36.8 H, Sodium 134 L, Potassium 3.9, Chloride 97 L, Carbon Dioxide 32.0, Anion Gap 5, BUN 30 H, Creatinine 1.08 H, Estim Creat Clear Calc 53.02, Est GFR (MDRD) Af Amer 62, Est GFR (MDRD) Non-Af 52 L, BUN/Creatinine Ratio 27.8 H, Glucose 94, Lactic Acid 2.6 H*, Calcium 9.8, Total Bilirubin 1.40 H, AST 41 H, ALT 22, Alkaline Phosphatase 107, B-Natriuretic Peptide 72.9, Total Protein 7.2, Albumin 2.8 L, Globulin 4.4 H, Albumin/Globulin Ratio 0.6 L 01/19/24 13:50: Urine Color Julia, Urine Clarity Cloudy, Urine pH 6.0, Ur Specific [place] 1.015, Urine Protein 100 H, Urine Glucose (UA) Normal, Urine Ketones Negative, Urine Occult Blood 250 H, Urine Nitrite Positive H, Urine Bilirubin Negative, Urine Urobilinogen Normal, Ur Leukocyte Esterase 500 H, Urine RBC 50-100 SEEN, Urine WBC >100 SEEN, Ur Squamous Epith Cells 0-5 SEEN, Ur Transition Epith Cell 0-5 SEEN, Urine Bacteria 4+, Urine Mucus 2+ Micro: Microbiology 01/19/24 13:20 Mucosa - Nose SARS-CoV-2, Influenza & RSV (PCR) - Final ABG Data ABG results: ABG 01/19/24 13:33 Specimen Type ART Sample Site R Radial pH 7.57 H Bicarbonate Actual 29.7 H Total CO2 31 Base Excess 8 H O2 Saturation 99 O2 % 5.0 ABG pCO2 32.6 L ABG pO2 110 H Ramirez Test Positive O2 Delivery Device Cannula Vent Mode Not entered Rhythm Strip Rhythm Strip: Sinus Tach Rate: 121 Ectopy: None Imaging Radiology Impression Chest X-Ray 01/19/24 13:20 IMPRESSION: Left lower lung scarring or atelectasis. Electronically Signed: Saúl Krishna MD at 13:45 EST , Assessment & Plan Assessment/Plan (1) Sepsis: (2) Acute UTI: PLAN: Plan Patient is an 83-year-old female who presented to [facility] ED on 01/19/2024 with shortness of breath, worsening fatigue and UTI symptoms. 1. Sepsis without shock secondary to UTI ? Admit under inpatient status to ICU. Met sepsis criteria on admit with hypotension with SBP less than 90, tachypnea, total bilirubin 1.40, lactic acid greater than 2 with presumed urinary source. Blood pressure responded well with 3 L of IV fluids total. Will treat with IV ceftriaxone for now, follow-up urine culture and blood culture. 2. Mild acute hypoxia on chronic hypoxic respiratory failure ? Hypoxic in the ED and required 4 L nasal cannula to maintain oxygen saturations in the low to mid 90s. Chest x-ray was benign. No pneumonia symptoms noted. Patient has known history of chronic respiratory failure but only wears supplemental nasal cannula at 2 to 3 L when she is in her room at the care home. Continue home inhalers. Wean supplemental oxygen as able. 3. Chronic HFpEF, hypertension, hyperlipidemia ? Last echo from 05/26 showed EF 65%, stage I diastolic dysfunction, moderate enlarged LA, no other concerning findings. Patient was dry appearing on exam on arrival presumed secondary to sepsis. Given 3 L of IV fluids on admit as noted above. Will hold home Lasix, losartan?hydrochlorothiazide and Toprol for now but low threshold to restart if patient's blood pressure remains improved after IV fluids and patient begins to exhibit signs of volume overload. Continue home statin. 4. Mild MARK ? Creatinine 1.08, BUN 30 on admit. Baseline creatinine 0.6-0.7. Presumed secondary to sepsis as noted above. Follow-up a.m. BMP and monitor urine output. Chronic medical conditions: ? Morbid obesity: BMI 47 on admit. Complicates hospital course, care and prognosis. ? History of DVT: Continue home Eliquis. ? GERD: Continue home PPI. ? Depression: Stable. Continue home duloxetine. ? Restless leg syndrome: Continue home Paxil. ? Osteoarthritis: Tylenol as needed ordered. ? Chronic debility: Lives in care home and reports being essentially at her baseline on admit. Will plan for discharge back to care home once medically ready. DVT prophylaxis: Not indicated, on Eliquis CODE STATUS: Full code, verified Expected disposition: Back to care home, D Total clinical time spent by myself addressing the patient's medical issues, reviewing all the data, and collaborating with patient's care team: 75 minutes. Sepsis Attestation Sepsis Alert: Yes Sepsis Attestation: Agree w/Sepsis Date exam was performed: 01/19/24 Time exam was performed: 15:00 Possible Source of Sepsis: Genitourinary Sepsis Organ Dysfunction Criteria Present: SBP < 90 mmHg or MAP < 65 mmHg and Lactic Acid > 2 mmol/L Charges/Coding Visit Charges Inpatient E&M: 36752 Init Hosp L3
[2024-01-19] MEDS: 0.9% Normal Saline (1000mL) 1,000 ML 150 ML IV (15:05)
[2024-01-19] MEDS: Ceftriaxone 1 GM/50 ML BAG IV (15:13)
--- NOTE | 2024-01-19 15:15 | ED.RN ---
PER DR. OLSON, INCREASE IV INFUSION RATE TO 500 MLS/HR.
--- NOTE | 2024-01-19 16:28 | ED.RN ---
Dr. Nicholson notified of BP of . Hospitalist notified
[2024-01-19] MEDS: 0.9% Normal Saline (1000mL) 1,000 ML 999 ML IV ×2 (16:40→18:00)
[2024-01-19 17:27] LABS: Reflex Lactate? Y
--- NOTE | 2024-01-19 17:40 | ED.RN ---
Dr. Frias notified of patient's lowered blood pressure. Dr. Frias bedside to assess patient and ordered for 150 mL fluid rate to be increased to 500 mL an hour.
--- NOTE | 2024-01-19 17:58 | ED.RN ---
Report called to ICU
[2024-01-19 18:40] LABS: Lactic Acid 1.7 mmol/L (0.4-1.9)
[2024-01-19] MEDS: APIXABAN 5 MG TABLET PO (19:47)
[2024-01-19] MEDS: Atorvastatin Calcium 40 MG Tablet PO (19:47)
[2024-01-19] MEDS: Pramipexole Di-HCl 0.5 MG Tablet PO (19:47)
[2024-01-19] MEDS: Senna/Docusate Sodium 1 Tablet 2 TABLET PO (19:47)
[2024-01-19] MEDS: Nystatin Powder 15gm Bottle 1 APPLIC TOPICAL (19:48)
--- NOTE | 2024-01-19 20:35 | SEPSISATNOTE ---
Sepsis Attestation Sepsis Alert: Yes Sepsis Attestation: Agree w/Sepsis Date exam was performed: 01/19/24 Time exam was performed: 15:00 Possible Source of Sepsis: Genitourinary Sepsis Organ Dysfunction Criteria Present: SBP < 90 mmHg or MAP < 65 mmHg and Lactic Acid > 2 mmol/L Fluid Resuscitation Fluid resuscitation indicated?: Yes Fluid Resuscitation ordered: Lesser volume fluid bolus ordered Amount of fluid ordered: 3,000 Reason for lesser fluid bolus:: Concern for fluid overload, Heart failure and BP Responded to a lesser volume Sepsis Note Date exam was performed: 01/19/24 Time exam was performed: 19:30 Sepsis Attestation: Sepsis re-evaluation was performed Response to fluids: Fluid responsive hypotension
[2024-01-20] VITALS (13 sets, daily range): BP systolic 107–159; BP diastolic 49–95; PULSE 87–117; RESP 17–24; TEMP 36.6–36.7; O2SAT 95–100; BMI 48.3
[2024-01-20] MEDS: Nystatin Powder 15gm Bottle 1 APPLIC TOPICAL ×3 (05:26→20:56)
[2024-01-20 05:35] LABS: Hematocrit 27.9 % (37-47); Hemoglobin 8.9 g/dL (12.0-15.0); Mean Corp Hgb Conc 31.9 g/dL (32-36); Mean Corpuscular Hgb 30.6 pg (27.0-32.0); Mean Corpuscular Volume 95.9 fL (81-99); Mean Platelet Vol. 10.4 fl (6.2-12.0); Platelet Count 134 K/mm3 (150-450); RBC Distribution Width CV 13.8 % (11.6-14.6); RBC Distribution Width SD 48.8 fl (35.1-43.9); Red Blood Count 2.91 M/mm3 (4.2-5.4)
[2024-01-20 06:12] LABS: Anion Gap 4 (5-15); BUN 28 mg/dL (7-18); Calcium,Total 9.1 mg/dL (8.5-10.1); Chloride 104 mmol/L (98-107); Creatinine, Serum 0.76 mg/dL (0.55-1.02); EST Glomerular Filtration Rate 78 mL/min (>60); Est Glom Filt Rate - Afr Amer 94 mL/min (>60); Estimated Creatinine Clearance 71.84 ml/min; Glucose 95 mg/dL (74-106); Potassium 3.3 mmol/L (3.5-5.1); Sodium Level 139 mmol/L (136-145)
--- NOTE | 2024-01-20 09:40 | CASEMGMT ---
Social Work SW met with pt and introduced self and role of SW. Pt confirms that she was admitted from [facility] and lives in the shelter care unit. Pt plans to return when medically ready. Updates sent to [facility] via [facility] and they are able to accept pt back at any time. Plan: Return to [facility], when medically ready ISSAC Hernandez
[2024-01-20] MEDS: Aspirin E.C. 81 MG Tablet PO (09:41)
[2024-01-20] MEDS: Folic Acid 1 MG Tablet PO (09:41)
[2024-01-20] MEDS: APIXABAN 5 MG TABLET PO ×2 (09:42→20:56)
[2024-01-20] MEDS: DULoxetine Hcl 30 MG Capsule PO (09:42)
[2024-01-20] MEDS: Latanoprost 0.005% 1 Bottle 1 DRP EACH EYE (09:43)
[2024-01-20] MEDS: Pramipexole Di-HCl 0.5 MG Tablet PO ×2 (09:43→20:56)
[2024-01-20] MEDS: Pantoprazole Sodium 40 MG Tablet PO (09:43)
[2024-01-20] MEDS: Ceftriaxone 1 GM/50 ML BAG IV (12:08)
[2024-01-20] MEDS: 0.9% Saline Lock 10 ML Syringe IV (12:08)
--- NOTE | 2024-01-20 13:14 | PCM.PN.HOSP ---
Reason for Visit Reason for Visit: Diagnoses Sepsis, unspecified organism (01/19/24) Urinary tract infection, site not specified (01/19/24) Subjective Subjective Patient was seen and examined today, she does not require pressors at this time, she voices no specific complaints to this examiner. White blood cell count today was normal, hemoglobin was 8.9. Objective Data Objective Data Vital Signs: Vital Signs Temp Pulse Resp BP Pulse Ox O2 Del Method O2 Flow Rate 98.1 F 91 22 H 125/65 H 97 Nasal Cannula 4 01/20/24 04:00 01/20/24 10:00 01/20/24 07:00 01/20/24 07:00 01/20/24 07:00 01/20/24 07:00 01/20/24 07:00 FiO2 35 01/19/24 13:01 Oxygen Flow Rate (L/min) 4 Oxygen Delivery Method Nasal Cannula Weight: 127.8 kg Body Mass Index (BMI) 48.3 Intake & Output: Intake and Output for Last 24 Hours 01/18/24 01/19/24 01/20/24 23:59 23:59 23:59 Intake Total 3410.0 / 3410.0 450 / 450 Output Total 0 / 200 1750 / 1750 Balance 3410.0 / 3210.0 -1300 / -1300 Lab / Micro Data 01/20/24 05:20 01/20/24 05:20 Labs: Laboratory Results - last 24 hr 01/19/24 13:20: WBC 8.6, RBC 3.25 L, Hgb 9.8 L, Hct 31.3 L, MCV 96.3, MCH 30.2, MCHC 31.3 L, RDW Std Deviation 49.5 H, RDW Coeff of Beth 13.8, Plt Count 140 L, MPV 10.1, Immature Gran % (Auto) 0.200, Neut % (Auto) 89.6 H, Lymph % (Auto) 5.6 L, [place] % (Auto) 4.3, Eos % (Auto) 0.1, Baso % (Auto) 0.2, Absolute Neuts (auto) 7.7, Absolute Lymphs (auto) 0.48 L, Nucleated RBC % 0, PT 17.5 H, INR 1.4, APTT 36.8 H, Sodium 134 L, Potassium 3.9, Chloride 97 L, Carbon Dioxide 32.0, Anion Gap 5, BUN 30 H, Creatinine 1.08 H, Estim Creat Clear Calc 53.02, Est GFR (MDRD) Af Amer 62, Est GFR (MDRD) Non-Af 52 L, BUN/Creatinine Ratio 27.8 H, Glucose 94, Lactic Acid 2.6 H*, Calcium 9.8, Total Bilirubin 1.40 H, AST 41 H, ALT 22, Alkaline Phosphatase 107, B-Natriuretic Peptide 72.9, Total Protein 7.2, Albumin 2.8 L, Globulin 4.4 H, Albumin/Globulin Ratio 0.6 L 01/19/24 13:50: Urine Color Julia, Urine Clarity Cloudy, Urine pH 6.0, Ur Specific [place] 1.015, Urine Protein 100 H, Urine Glucose (UA) Normal, Urine Ketones Negative, Urine Occult Blood 250 H, Urine Nitrite Positive H, Urine Bilirubin Negative, Urine Urobilinogen Normal, Ur Leukocyte Esterase 500 H, Urine RBC 50-100 SEEN, Urine WBC >100 SEEN, Ur Squamous Epith Cells 0-5 SEEN, Ur Transition Epith Cell 0-5 SEEN, Urine Bacteria 4+, Urine Mucus 2+ 01/19/24 17:43: Lactic Acid 1.7 01/20/24 05:20: WBC 10.0, RBC 2.91 L, Hgb 8.9 L, Hct 27.9 L, MCV 95.9, MCH 30.6, MCHC 31.9 L, RDW Std Deviation 48.8 H, RDW Coeff of Beth 13.8, Plt Count 134 L, MPV 10.4, Sodium 139, Potassium 3.3 L, Chloride 104, Carbon Dioxide 31.0, Anion Gap 4 L, BUN 28 H, Creatinine 0.76, Estim Creat Clear Calc 71.84, Est GFR (MDRD) Af Amer 94, Est GFR (MDRD) Non-Af 78, BUN/Creatinine Ratio 37.0 H, Glucose 95, Calcium 9.1 Micro: Microbiology 01/19/24 13:50 Urine, Clean Catch Urine Culture - Preliminary Culture exhibits no growth. 01/19/24 13:20 Mucosa - Nose SARS-CoV-2, Influenza & RSV (PCR) - Final ABG Data ABG results: ABG 01/19/24 13:33 Specimen Type ART Sample Site R Radial pH 7.57 H Bicarbonate Actual 29.7 H Total CO2 31 Base Excess 8 H O2 Saturation 99 O2 % 5.0 ABG pCO2 32.6 L ABG pO2 110 H Ramirez Test Positive O2 Delivery Device Cannula Vent Mode Not entered Radiography Diagnostic Testing: Radiology Impression Chest X-Ray 01/19/24 13:20 IMPRESSION: Left lower lung scarring or atelectasis. Electronically Signed: Saúl Krishna MD at 13:45 EST Reading Location ID and State: [facility] / [place] , Service support , Rhythm Strip Rhythm Strip: Sinus Tach Rate: 121 Ectopy: None Physical Exam Const alert, oriented x3, no apparent distress and average body habitus Constitutional Narrative: Patient appears her stated age General Appearance: cooperative, well kempt and well developed Orientation / Consciousness: awake, oriented to person, oriented to place and oriented to time HEENT normocephalic, head/scalp atraumatic and moist oral mucous membranes Eyes PERRL, EOMs intact bilaterally and conjunctivae normal Neck supple, no JVD, thyroid normal and no carotid bruits General: trachea midline Resp normal respiratory effort, no retractions, no use of accessory muscles and clear to auscultation bilaterally Auscultation: Negative for rales, rhonchi or wheezes Cardio regular rate, regular rhythm, S1 normal heart sound, S2 normal heart sound, no rub and no gallops Cardio Narrative: Heart rate and rhythm is regular with tachycardia with extrasystolic beats GI normal to inspection, nondistended, normoactive bowel sounds, soft to palpation, non-tender and non-distended Extremity no clubbing, cyanosis or edema Skin no rashes or lesions noted General Skin Exam: no breakdown Neuro oriented x3, CN's II-XII intact bilaterally, moves all extremities, no focal motor deficits and no sensory deficits noted Sensorium / Orientation: awake and alert Speech: speech normal Psych affect normal Assessment & Plan Assessment/Plan (1) Acute UTI: PLAN: Plan 1. Acute cystitis-urine culture has not grown any organisms yet, continue IV Rocephin, patient appears stable for transfer to the [facility] floor. 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, this will be resumed #4 essential hypertension-I have elected to place the patient back on her losartan at a lower dosage, I will hold diuretics at this time #5 hyperlipidemia-patient is on a statin I do not believe the patient has sepsis Total clinical time spent by myself addressing the patient's medical issues, reviewing all of her data, and collaborating with patient's care team: 35 minutes Charges/Coding Visit Charges Inpatient E&M: 55538 Subs Hosp L2
[2024-01-20] MEDS: Losartan Potassium 50 MG Tablet PO (16:16)
[2024-01-20] MEDS: Potassium Chloride Oral Tablet 20 MEQ 40 MEQ PO (16:52)
[2024-01-20] MEDS: Atorvastatin Calcium 40 MG Tablet PO (20:56)
[2024-01-21 03:34] VITALS: BMI 48.2
[2024-01-21 04:10] VITALS: BP 106/90; PULSE 94; RESP 20; TEMP 36.4; O2SAT 100
[2024-01-21] MEDS: Albuterol 2.5 MG/3 ML VIAL.NEB. INHALATION (04:19)
[2024-01-21 04:21] VITALS: PULSE 87; RESP 22
[2024-01-21] MEDS: Furosemide 40 MG/4 ML Vial IV (05:03)
[2024-01-21] MEDS: Nystatin Powder 15gm Bottle 1 APPLIC TOPICAL ×2 (05:06→16:22)
[2024-01-21] MEDS: 0.9% Saline Lock 10 ML Syringe IV ×2 (05:06→11:44)
--- NOTE | 2024-01-21 05:10 | PCM.HOSP.N ---
Hospitalist Note Patient with increased work of breathing, crackles, will administer Lasix 40 mg IV x 1.
[2024-01-21] MEDS: Acetaminophen 325 MG Tablet 650 MG PO (05:53)
[2024-01-21 07:37] VITALS: O2SAT 94
[2024-01-21 11:32] VITALS: BP 120/65; PULSE 95; RESP 20; TEMP 36.6; O2SAT 95
[2024-01-21 11:44] VITALS: BP 120/65; PULSE 95
[2024-01-21] MEDS: DULoxetine Hcl 30 MG Capsule PO (11:44)
[2024-01-21] MEDS: Pantoprazole Sodium 40 MG Tablet PO (11:44)
[2024-01-21] MEDS: Pramipexole Di-HCl 0.5 MG Tablet PO (11:44)
[2024-01-21] MEDS: Ceftriaxone 1 GM/50 ML BAG IV (11:44)
[2024-01-21] MEDS: Metoprolol(XL)Succ 25 MG Tablet PO (11:44)
[2024-01-21] MEDS: Aspirin E.C. 81 MG Tablet PO (11:45)
[2024-01-21] MEDS: Losartan Potassium 50 MG Tablet PO (11:45)
[2024-01-21] MEDS: Folic Acid 1 MG Tablet PO (11:45)
[2024-01-21] MEDS: APIXABAN 5 MG TABLET PO (11:45)
--- NOTE | 2024-01-21 14:54 | PCM.TXEXTCAR ---
Diet Diet Order/Speech Therapy: 01/20/24 13:07 Diet: Cardiac: Calorie-Controlled Food consistency:: Regular Liquid Consistency:: Regular/Thin How many daily calories?: 1800 calorie Routine Orders/Code Status O2 Liters per Minute: 3 O2 Frequency: Continuous Keep PO Greater than or Equal to (%): 90 Code Status: Full Code Therapies Weight Bearing: Full weight bearing Problem/Diagnosis (1) Acute UTI: Status: Acute Code(s): N39.0 - Urinary tract infection, site not specified Plan 1. Acute cystitis-urine culture has not grown any organisms yet, I have elected to have the patient complete a course of oral antibiotics at her extended care facility. 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, this will be resumed #4 essential hypertension-I have elected to place the patient back on her losartan at a lower dosage, I will hold diuretics at this time #5 hyperlipidemia-patient is on a statin I do not believe the patient has sepsis Total clinical time spent by myself addressing the patient's medical issues, reviewing all of her data, and collaborating with patient's care team: 35 minutes Allergies/Procedures Done in Hospital Allergies Penicillins (PCN) Allergy (Verified 01/19/24 12:51) Hives Procedures: None Type of Care/Length of Stay Estimated LOS: More Than 30 Days Type of Care Needed: Intermediate Rehab Potential: Good Prognosis: Good Additional Orders/Day of Discharge H&P will serve as current which was dated: 01/19/24 Day of Discharge: 01/21/24 Dietary and Speech Recommendations Dietitian Recommendations/Changes: Will adjust diet to 1800 calorie, cardiac. No ONS needed at this time. Discharge Plan Admission Admit Date/Time: 01/19/24 14:54 Primary Reason for Your Visit: Acute cystitis Attending Provider: Rickey Tatum Primary Care Provider: Maryanne Howard Consulting Providers: Freddie Galo Discharge Orders/Prescriptions Prescriptions: New losartan 50 mg Tablet 50 mg PO DAILY Qty: 0 0RF metoprolol succinate 25 mg Tablet Extended Release 24 Hr 50 mg PO DAILY Qty: 0 0RF nystatin [Nyamyc] 100,000 unit/gram Powder 1 applic topical TID Qty: 0 0RF Protocol: *Topical Application Instructions APPLICATION INSTRUCTIONS: under bilateral breasts, groin and abdominal folds cephalexin 500 mg capsule 500 mg PO TID Qty: 15 0RF Rx Instructions: 1 3 times a day starting 01/22/2024 for a total of 5 days Continued paroxetine HCl 40 mg tablet 1 ea PO DAILY Patient Comments: take 1 tablet by mouth once daily albuterol sulfate 2.5 mg /3 mL (0.083 %) solution for nebulization 2.5 mg continuous nebulization Q8H PRN (Reason: shortness of breath or wheezing) potassium chloride 20 mEq tablet,ER particles/crystals 40 meq PO DAILY PRN PRN (Reason: LOW POTASSIUM) multivitamin 1 EACH tablet 1 tab PO DAILY Patient Comments: supplement calcium carbonate 600 MG tablet 600 mg PO DAILY Patient Comments: supplement latanoprost 0.005 % drops 1 drp EACH EYE QHS Patient Comments: place 1 drop into both eyes every evening pramipexole 0.5 mg tablet 0.5 mg PO BID Patient Comments: take 2 tablets by mouth at bedtime pantoprazole 40 mg tablet,delayed release (DR/EC) 40 mg PO DAILY Patient Comments: take 1 tablet by mouth once daily Eliquis 5 mg tablet 5 mg PO BID Patient Comments: take 1 tablet by mouth twice a day furosemide 40 mg Tablet 40 mg PO DAILY aspirin 81 mg Tablet,Delayed Release (Dr/Ec) 81 mg PO BREAKFAST Qty: 0 0RF atorvastatin 40 mg Tablet 40 mg PO QHS Qty: 0 0RF ergocalciferol (vitamin D2) [Vitamin D2] 1,250 mcg (50,000 unit) Capsule 1,250 mcg PO Q7D 49 Days Qty: 7 0RF nystatin [Nyamyc] 100,000 unit/gram Powder 1 applic topical BID Qty: 0 0RF Protocol: *Topical Application Instructions APPLICATION INSTRUCTIONS: Under bilateral breasts and groin diclofenac sodium 1 % gel 4 g TOPICAL BID PRN PRN (Reason: RT KNEE PAIN) calcium carbonate-vitamin D2 600 mg calcium- 200 unit tablet 2 tab PO DAILY ferrous sulfate [FeroSul] 325 mg (65 mg iron) Tablet 325 mg PO 1200,1700 Qty: 60 0RF folic acid 1 mg Tablet 1 mg PO BREAKFAST Qty: 60 0RF sennosides-docusate sodium [Stool Softener-Stimulant Laxat] 8.6-50 mg Tablet 2 tab PO BID Qty: 14 0RF acetaminophen 500 mg Tablet 1,000 mg PO Q8 Qty: 120 0RF acetaminophen 325 mg tablet 650 mg PO Q4H PRN (Reason: pain) albuterol sulfate 90 mcg/actuation HFA aerosol inhaler inhalation duloxetine 30 mg capsule,delayed release(DR/EC) 30 mg PO DAILY Discontinued losartan-hydrochlorothiazide 100-25 mg tablet 1 tab PO DAILY metoprolol succinate 25 mg Tablet Extended Release 24 Hr 25 mg PO DAILY Qty: 0 0RF Referrals / Follow Up: Maryanne Howard MD [Primary Care Provider] - Disposition Disposition (needs filled in before D/C Order can be placed): NonSkilled NH/Intermed Care
--- NOTE | 2024-01-21 15:17 | PCM.DC.SUM ---
Providers Date of Admission: 01/19/24 Date of Discharge: 01/21/24 Primary Care Physician: Dr. Maryanne Howard MD Reason For Visit: UTI W/CONCERN FOR SEPSIS Diagnosis Discharge Diagnosis (1) Acute UTI: Status: Acute Code(s): N39.0 - Urinary tract infection, site not specified Plan 1. Acute cystitis-urine culture has not grown any organisms yet, I have elected to have the patient complete a course of oral antibiotics at her extended care facility. 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, this will be resumed #4 essential hypertension-I have elected to place the patient back on her losartan at a lower dosage, I will hold diuretics at this time #5 hyperlipidemia-patient is on a statin I do not believe the patient has sepsis Total clinical time spent by myself addressing the patient's medical issues, reviewing all of her data, and collaborating with patient's care team: 35 minutes Medications at Discharge Home Medications calcium carbonate 600 mg PO DAILY Check with primary doctor 01/14/15 multivitamin 1 tab PO DAILY Check with primary doctor 01/14/15 paroxetine HCl 40 mg tablet 1 ea PO DAILY Check with primary doctor 02/12/20 apixaban 5 mg tablet (Eliquis) 5 mg PO BID blood clot 05/30/22 latanoprost 0.005 % eye drops 1 drp EACH EYE QHS glacoma 05/30/22 pantoprazole 40 mg tablet,delayed release 40 mg PO DAILY Check with primary doctor 05/30/22 pramipexole 0.5 mg tablet 0.5 mg PO BID restless leg 05/30/22 furosemide 40 mg tablet 40 mg PO DAILY Leg Swelling 05/31/22 aspirin 81 mg tablet,delayed release 81 mg PO BREAKFAST #0 tabs 06/03/22 atorvastatin 40 mg tablet 40 mg PO QHS #0 tabs 06/03/22 ergocalciferol (vitamin D2) 1,250 mcg (50,000 unit) capsule (Vitamin D2) 1,250 mcg PO Q7D 7 weeks #7 caps 06/03/22 nystatin 100,000 unit/gram topical powder (Nyamyc) 1 applic topical BID #0 grams 06/03/22 albuterol sulfate 2.5 mg/3 mL (0.083 %) solution for nebulization 2.5 mg continuous nebulization Q8H PRN shortness of breath or wheezing 08/03/22 potassium chloride 20 mEq tablet,extended release(part/cryst) 40 meq PO DAILY PRN PRN LOW POTASSIUM 08/03/22 calcium carb-ergocalciferol (vit D2) 600 mg calcium-200 unit tablet 2 tab PO DAILY 12/19/22 diclofenac sodium 1 % topical gel 4 g topical BID PRN PRN RT KNEE PAIN 12/19/22 acetaminophen 500 mg tablet 1,000 mg (2 x 500 mg) PO Q8 #120 tabs 12/30/22 ferrous sulfate 325 mg (65 mg iron) tablet (FeroSul) 325 mg PO 1200,1700 #60 tabs 12/30/22 folic acid 1 mg tablet 1 mg PO BREAKFAST #60 tabs 12/30/22 sennosides 8.6 mg-docusate sodium 50 mg tablet (Stool Softener-Stimulant Laxative) 2 tab PO BID #14 tabs 12/30/22 acetaminophen 325 mg tablet 650 mg PO Q4H PRN pain 01/19/24 albuterol sulfate 90 mcg/actuation aerosol inhaler inhalation 01/19/24 duloxetine 30 mg capsule,delayed release 30 mg PO DAILY 01/19/24 cephalexin 500 mg capsule 500 mg PO TID #15 caps 01/21/24 losartan 50 mg tablet 50 mg PO DAILY #0 tabs 01/21/24 metoprolol succinate 25 mg tablet,extended release 24 hr 50 mg (2 x 25 mg) PO DAILY #0 tabs 01/21/24 nystatin 100,000 unit/gram topical powder (Nyamyc) 1 applic topical TID #0 grams 01/21/24 Hospital Course Operations None Procedures None Summary of Care Provided Minutes Spent on Discharge: 31 Hospital Course: This 83-year-old white female was seen in the emergency room at [facility] after being transported in from an intermediate care facility due to shortness of breath. Patient stated that she was feeling unwell all week and was diagnosed with a urinary tract infection and her intermediate care facility. She was ordered antibiotics there but the antibiotics were not started. Patient is on chronic oxygen at her intermediate care facility. CBC showed a normal white blood cell count, hemoglobin was 9.8, creatinine was 1.08 and BUN was 30. UA showed more than 100 WBCs, 50-100 RBCs and 4+ bacteria. Chest x-ray showed left lower lung scarring or atelectasis. Patient was admitted for acute cystitis and possible sepsis, this physician did not feel the patient had sepsis. Patient did not require pressor agents during her hospitalization. She was transferred to PCU and had no untoward events. On 01/21/2024, patient was seen and examined: On examination she appeared in good health and spirits, she does not appear to be in any distress. Vital signs as documented. Skin warm and dry and without overt rashes. Neck without JVD, thyroid appears normal, trachea is midline, neck is supple. Lungs clear, normal air movement was noted. Heart exam notable for regular rhythm, normal sounds and absence of murmurs, rubs or gallops. Abdomen unremarkable and without evidence of organomegaly, masses, or abdominal aortic enlargement, bowel sounds are present in all 4 quadrants, no abdominal tenderness was noted. Extremities nonedematous, no cyanosis was noted, no clubbing was noted. Neuro: Cranial nerves II through XII are grossly intact, no focal motor deficits were noted, sensation to light touch and pinprick is intact, motor exam 5/5 throughout. Psych: Patient is alert and oriented x3, she does not appear anxious or depressed, she does not appear agitated. Patient's urine culture exhibited no growth, however, I felt that the patient did have an acute cystitis. Patient was transferred back to her intermediate care facility in stable condition on 01/21/2024 Weight / BMI Weight Weight: 127.6 kg Body Mass Index (BMI) 48.2 ABG / Lab / Microbiology Data 01/20/24 05:20 01/20/24 05:20 Microbiology: Microbiology 01/19/24 13:20 Blood Culture (Wb) - Arm Left Blood Culture - Preliminary No growth in 48 hours. 01/19/24 13:50 Urine, Clean Catch Urine Culture - Final Culture exhibits no growth. 01/19/24 13:20 Mucosa - Nose SARS-CoV-2, Influenza & RSV (PCR) - Final Meaningful Use Info Meaningful Use Meaningful Use Diagnoses (Choose all that apply): None applicable Ischemic Stroke Statin Dosing Therapy Reference: STATIN DOSE THERAPY REFERENCE: * Patients > 75 years receive moderate or high dose statin therapy. * Patients 75 years or YOUNGER should receive HIGH intensity statin dose unless contraindicated. You will be required to document reason for non-treatment if statin daily dose does not meet guidelines. HIGH DOSE STATIN THERAPY DAILY Atorvastatin > than or = to 40 mg Rosuvastatin > than or = to 20 mg Amlodipine + Atorvastatin > than or = to 2.5/40 mg Ezetimibe + Simvastatin 10/80 mg Simvastatin 80mg Discharge Plan Admission Admit Date/Time: 01/19/24 14:54 Primary Reason for Your Visit: Acute cystitis Attending Provider: Rickey Tatum Primary Care Provider: Maryanne Howard Consulting Providers: Freddie Galo Discharge Orders/Prescriptions Prescriptions: New losartan 50 mg Tablet 50 mg PO DAILY Qty: 0 0RF metoprolol succinate 25 mg Tablet Extended Release 24 Hr 50 mg PO DAILY Qty: 0 0RF nystatin [Nyamyc] 100,000 unit/gram Powder 1 applic topical TID Qty: 0 0RF Protocol: *Topical Application Instructions APPLICATION INSTRUCTIONS: under bilateral breasts, groin and abdominal folds cephalexin 500 mg capsule 500 mg PO TID Qty: 15 0RF Rx Instructions: 1 3 times a day starting 01/22/2024 for a total of 5 days Continued paroxetine HCl 40 mg tablet 1 ea PO DAILY Patient Comments: take 1 tablet by mouth once daily albuterol sulfate 2.5 mg /3 mL (0.083 %) solution for nebulization 2.5 mg continuous nebulization Q8H PRN (Reason: shortness of breath or wheezing) potassium chloride 20 mEq tablet,ER particles/crystals 40 meq PO DAILY PRN PRN (Reason: LOW POTASSIUM) multivitamin 1 EACH tablet 1 tab PO DAILY Patient Comments: supplement calcium carbonate 600 MG tablet 600 mg PO DAILY Patient Comments: supplement latanoprost 0.005 % drops 1 drp EACH EYE QHS Patient Comments: place 1 drop into both eyes every evening pramipexole 0.5 mg tablet 0.5 mg PO BID Patient Comments: take 2 tablets by mouth at bedtime pantoprazole 40 mg tablet,delayed release (DR/EC) 40 mg PO DAILY Patient Comments: take 1 tablet by mouth once daily Eliquis 5 mg tablet 5 mg PO BID Patient Comments: take 1 tablet by mouth twice a day furosemide 40 mg Tablet 40 mg PO DAILY aspirin 81 mg Tablet,Delayed Release (Dr/Ec) 81 mg PO BREAKFAST Qty: 0 0RF atorvastatin 40 mg Tablet 40 mg PO QHS Qty: 0 0RF ergocalciferol (vitamin D2) [Vitamin D2] 1,250 mcg (50,000 unit) Capsule 1,250 mcg PO Q7D 49 Days Qty: 7 0RF nystatin [Nyamyc] 100,000 unit/gram Powder 1 applic topical BID Qty: 0 0RF Protocol: *Topical Application Instructions APPLICATION INSTRUCTIONS: Under bilateral breasts and groin diclofenac sodium 1 % gel 4 g TOPICAL BID PRN PRN (Reason: RT KNEE PAIN) calcium carbonate-vitamin D2 600 mg calcium- 200 unit tablet 2 tab PO DAILY ferrous sulfate [FeroSul] 325 mg (65 mg iron) Tablet 325 mg PO 1200,1700 Qty: 60 0RF folic acid 1 mg Tablet 1 mg PO BREAKFAST Qty: 60 0RF sennosides-docusate sodium [Stool Softener-Stimulant Laxat] 8.6-50 mg Tablet 2 tab PO BID Qty: 14 0RF acetaminophen 500 mg Tablet 1,000 mg PO Q8 Qty: 120 0RF acetaminophen 325 mg tablet 650 mg PO Q4H PRN (Reason: pain) albuterol sulfate 90 mcg/actuation HFA aerosol inhaler inhalation duloxetine 30 mg capsule,delayed release(DR/EC) 30 mg PO DAILY Discontinued losartan-hydrochlorothiazide 100-25 mg tablet 1 tab PO DAILY metoprolol succinate 25 mg Tablet Extended Release 24 Hr 25 mg PO DAILY Qty: 0 0RF Referrals / Follow Up: Maryanne Howard MD [Primary Care Provider] - Disposition Disposition (needs filled in before D/C Order can be placed): NonSkilled NH/Intermed Care Charges/Coding Visit Charges Inpatient E&M: 95971 Disch Hosp >30min
[2024-01-21 16:20] VITALS: BP 115/91; PULSE 89; RESP 20; TEMP 36.7; O2SAT 98
--- NOTE | 2024-01-21 16:50 | NURSING ---
Report called to [facility] [place] at 1647 to [facility]KK[facility] [place] by this RN.
== END 2024-01-21 16:43 | DRG 690 ==
LOC: ED 15:04 → PCU 15:15 → ICU 17:11 → PCU 01-20 15:58
PROVIDERS: Admitting Provider Hospitalist; Emergency Provider Emergency Medicine; PCP Internal Medicine; Referring Provider Internal Medicine; Visit Provider Internal Medicine
DX: N30.00 Acute cystitis without hematuria (principal); J96.11 Chronic respiratory failure with hypoxia; I50.32 Chronic diastolic (congestive) heart failure; Z68.42 Body mass index [BMI] 45.0-49.9, adult; N17.9 Acute kidney failure, unspecified; I11.0 Hypertensive heart disease with heart failure; G25.81 Restless legs syndrome; F32.A Depression, unspecified; I25.10 Atherosclerotic heart disease of native coronary artery without angina pectoris; K21.9 Gastro-esophageal reflux disease without esophagitis; E78.5 Hyperlipidemia, unspecified; E66.01 Morbid (severe) obesity due to excess calories; I25.2 Old myocardial infarction; Z99.81 Dependence on supplemental oxygen; I49.1 Atrial premature depolarization; Z79.01 Long term (current) use of anticoagulants; Z79.899 Other long term (current) drug therapy; Z86.718 Personal history of other venous thrombosis and embolism
CPT/HCPCS: 36600; 71045; 80048; 80053; 81001; 82803; 83605; 83880; 85025; 85027; 85610; 85730; 87040; 87086; 87631; 93005; 94640; 94668; 99285; A4216; J1940

== ENCOUNTER 2024-05-07 12:09 | Inpatient (IN) | payer MEDICARE, MEDICAID, SELFPAY ==
[2024-05-07] VITALS (11 sets, daily range): BP systolic 107–159; BP diastolic 34–76; PULSE 79–110; RESP 14–24; TEMP 36.6–37.2; O2SAT 93–100; BMI 42.3; BMI 41.5
--- NOTE | 2024-05-07 13:38 | EKG12_ITS ---
Test Reason : SOB Blood Pressure : */* mmHG Vent. Rate : 77 BPM Atrial Rate : 77 BPM P-R Int : 166 ms QRS Dur : 134 ms QT Int : 390 ms P-R-T Axes : 45 2 15 degrees QTcB Int : 441 ms Normal sinus rhythm Right bundle branch block Abnormal ECG Confirmed by Luis E Pozo ([id number]), department editor ELIAS MIDDLETON ([id number]) on 05/09/2024 6:53:47 AM Referred By: BB/MANUEL Confirmed By: Luis E Pozo
[2024-05-07] MEDS: Albuterol 2.5 MG/3 ML VIAL.NEB. INHALATION (13:50)
[2024-05-07 13:59] LABS: Absolute Lymphocyte Count 1.18 X10^3/uL (0.83-4.51); Absolute Neutrophil Count 5.6 X10^3/uL (2.0-7.7); Basophil# 0.01 X10^3/uL; Basophil% 0.1 % (0-1); Eosinophil# 0.04 X10^3/uL; Eosinophils% 0.5 % (0-5); Hematocrit 36.1 % (37-47); Hemoglobin 11.5 g/dL (12.0-15.0); Lymphocyte # 1.18 X10^3/ul (0.83-4.51); Lymphocyte % 15.2 % (19-41); Mean Corp Hgb Conc 31.9 g/dL (32-36); Mean Corpuscular Hgb 30.5 pg (27.0-32.0); Mean Corpuscular Volume 95.8 fL (81-99); Mean Platelet Vol. 10.5 fl (6.2-12.0); Monocyte# 0.82 X10^3/uL; Monocyte% 10.6 % (0-10); NRBC Flagged by Analyzer 0 % (0-5); Neutrophil # 5.58 X10^3/uL (2.7-7.7); Neutrophil % 71.9 % (47-70); Platelet Count 164 K/mm3 (150-450); RBC Distribution Width CV 13.7 % (11.6-14.6); RBC Distribution Width SD 48.8 fl (35.1-43.9); Red Blood Count 3.77 M/mm3 (4.2-5.4); White Blood Count 7.8 K/mm3 (4.4-11.0)
--- NOTE | 2024-05-07 14:15 | RAD_ITS ---
PROCEDURE: CHEST 1 VIEW (PORTABLE) REASON FOR EXAM: Cough dyspnea bilateral rales. Wheezing. TECHNIQUE: Frontal view of the chest. COMPARISON: Comparison is made with prior study dated January 19, 2024. FINDINGS: EKG electrodes are seen. Mild cardiomegaly. Left basilar atelectasis and/or infiltrate. Blunting of the left costophrenic angle. Superimposed on mild vascular congestion. Calcification of the aortic arch. Prior right shoulder replacement. Degenerative changes of the left shoulder. RAD/Chest 1 View (Portable) IMPRESSION: Findings suggestive of left lower lobe infiltrate with blunting of the left cos tophrenic angle superimposed on vascular congestion and mild CHF. Reading Location: [facility]
[2024-05-07 14:17] LABS: Base Excess 10 mmol/L (-2 to +2); Blood Gas Specimen Type ART; Mode Not entered; O2 Delivery Device Not entered; PO2 82 mmHG (75-100); SITE R Brach; SO2 96 % (95-99); Total Carbon Dioxide 36 mmol/L; pCO2 51.3 mmHg (35-45); pH 7.43 (7.35-7.45)
--- NOTE | 2024-05-07 15:36 | EX.ED.DYSGE1 ---
HPI History of Present Illness Chief Complaint: Shortness of Breath Detail of Chief Complaint: Presents from half-way. Very hard of hearing and poor informed Informant: patient, EMS and SNF Onset/Context/Timing Onset: - (She states she has been ill for some time. She needed more oxygen at the facility today.) Context: Gradual Onset Timing: Continuous Quality: Respiratory symptoms cough, congestion, sore throat Location: Respiratory Current Severity: Mild Maximum Severity: Severe Worsened by: Increase shortness of breath with minimal activity Relieved by: Nothing Associated Symptoms Associated Symptoms: Patient is a very poor informant. Please see HPI narrative Narrative Narrative: Patient is a 83-year-old woman. She has history of congestive heart failure, hypertension, COPD, on oxygen by nasal cannula chronically obstructive sleep apnea, and GERD. She presents because requiring more oxygen. She has not been as alert. She does endorse other half-way attendance having influenza. She states half of the facility has influenza. She states she does not feel well. She has no appetite. She denies vomiting or diarrhea. She denies urologic symptoms. She states she sleeps in a chair and slept in a chair for some time. She has chronic edema of her lower extremities. She is not compliant with her cardiac diet. Prior similar symptoms: Yes (CHF and pneumonia) Recent Illness/Hospitalization: No [facility] Medical History Elevated lactic acid level Dehydration Acute UTI Cardiology follow-up encounter History of echocardiogram Difficult intravenous access Loss of hearing History of radiation therapy Walker as ambulation aid Uses wheelchair Arthritis Urinary frequency Easy bruising Vertigo Dietary restriction History of hiatal hernia Non-smoker Chronic cough Wears dentures Wears glasses Anxiety History of edema History of heart attack HLD (hyperlipidemia) History of CHF (congestive heart failure) Sleep apnea Depression History of embolism Insomnia Shortness of breath on exertion GERD (gastroesophageal reflux disease) Left shoulder pain Osteopenia Anasarca Hypertension Congestive heart failure (CHF) Restless leg syndrome Home Medications ?Medication ?Instructions ?Recorded ?Last Taken ?Type calcium carbonate 600 mg PO DAILY Check with primary 01/14/15 Unknown History doctor multivitamin 1 tab PO DAILY Check with primary 01/14/15 Unknown History doctor paroxetine HCl 40 mg tablet 1 ea PO DAILY Check with primary 02/12/20 Unknown History doctor apixaban 5 mg tablet (Eliquis) 5 mg PO BID blood clot 05/30/22 12/22/22 History latanoprost 0.005 % eye drops 1 drp EACH EYE QHS [place] 05/30/22 Unknown History pantoprazole 40 mg tablet,delayed 40 mg PO DAILY Check with primary 05/30/22 Unknown History release doctor pramipexole 0.5 mg tablet 0.5 mg PO BID restless leg 05/30/22 Unknown History furosemide 40 mg tablet 40 mg PO DAILY Leg Swelling 05/31/22 Unknown History aspirin 81 mg tablet,delayed 81 mg PO BREAKFAST #0 tabs 06/03/22 12/22/22 Rx release atorvastatin 40 mg tablet 40 mg PO QHS #0 tabs 06/03/22 Unknown Rx ergocalciferol (vitamin D2) 1,250 1,250 mcg PO Q7D 7 weeks #7 caps 06/03/22 12/22/22 Rx mcg (50,000 unit) capsule (Vitamin D2) nystatin 100,000 unit/gram topical 1 applic topical BID #0 grams 06/03/22 Unknown Rx powder (Nyamyc) albuterol sulfate 2.5 mg/3 mL 2.5 mg continuous nebulization Q8H 08/03/22 Unknown History (0.083 %) solution for nebulization PRN shortness of breath or wheezing potassium chloride 20 mEq 40 meq PO DAILY PRN PRN LOW 08/03/22 Unknown History tablet,extended release(part/cryst) POTASSIUM calcium carb-ergocalciferol (vit 2 tab PO DAILY 12/19/22 Unknown History D2) 600 mg calcium-200 unit tablet diclofenac sodium 1 % topical gel 4 g topical BID PRN PRN RT KNEE 12/19/22 Unknown History PAIN acetaminophen 500 mg tablet 1,000 mg (2 x 500 mg) PO Q8 #120 12/30/22 Unknown Rx tabs ferrous sulfate 325 mg (65 mg 325 mg PO 1200,1700 #60 tabs 12/30/22 Unknown Rx iron) tablet (FeroSul) folic acid 1 mg tablet 1 mg PO BREAKFAST #60 tabs 12/30/22 Unknown Rx sennosides 8.6 mg-docusate sodium 2 tab PO BID #14 tabs 12/30/22 Unknown Rx 50 mg tablet (Stool Softener-Stimulant Laxative) acetaminophen 325 mg tablet 650 mg PO Q4H PRN pain 01/19/24 Unknown History albuterol sulfate 90 mcg/actuation inhalation 01/19/24 Unknown History aerosol inhaler duloxetine 30 mg capsule,delayed 30 mg PO DAILY 01/19/24 Unknown History release cephalexin 500 mg capsule 500 mg PO TID #15 caps 01/21/24 Unknown Rx losartan 50 mg tablet 50 mg PO DAILY #0 tabs 01/21/24 Unknown Rx metoprolol succinate 25 mg 50 mg (2 x 25 mg) PO DAILY #0 tabs 01/21/24 Unknown Rx tablet,extended release 24 hr nystatin 100,000 unit/gram topical 1 applic topical TID #0 grams 01/21/24 Unknown Rx powder ([facility]) Allergy/AdvReac Type Severity Reaction Status Date / Time Penicillins (PCN) Allergy Hives Verified 05/07/24 12:19 Family History Other COPD (chronic obstructive pulmonary disease) Hypertension Surgical History History of cardiac catheterization History of shoulder surgery History of carpal tunnel surgery of right wrist History of endometrial ablation History of carpal tunnel surgery of left wrist History of hysterectomy History of dilation and curettage History of tooth extraction History of rotator cuff surgery History of left hip replacement History of right shoulder replacement History of total replacement of left shoulder joint Status post right partial knee replacement History of total left knee replacement History of total left hip replacement Social History Smoking Status: Never smoker [facility] ED Constitutional Constitutional ED: Reports fever(s), subjective and sweats Eyes Eyes: Denies blurry vision or change in vision ENT ENT ED: Reports rhinorrhea and sore throat Cardiovascular Cardiovascular: Denies chest pain, orthopnea, palpitations or paroxysmal nocturnal dyspnea Respiratory/Chest Respiratory/Chest: Reports cough, dyspnea, dyspnea on exertion, sputum and other Details: Sputum is light green-tinged. This is not normal for her. ; Denies orthopnea or paroxysmal nocturnal dyspnea Gastrointestinal Gastrointestinal: Denies abdominal pain, constipation, diarrhea, nausea or vomiting Genitourinary Genitourinary ED: Denies dysuria, hematuria or urinary frequency Musculoskeletal Musculoskeletal: Denies back pain or neck pain Integumentary Denies rash Neurologic Neurologic: Reports weakness; Denies headache(s) Hematologic/Lymphatic Hematologic/Lymphatic: Reports systems reviewed and no addt'l complaints, except as documented EXAM Physical Exam Const Vital Signs: 05/07/24 12:11 05/07/24 12:20 05/07/24 13:51 Temperature 98 F Temperature Source Oral Pulse Rate 79 82 Respiratory Rate 16 14 Respiratory Effort Short of Breath Respiratory Depth Normal Respiratory Pattern Normal Blood Pressure 159/76 H Blood Pressure Mean 103 Pulse Ox 95 Oxygen Delivery Method Nasal Cannula Nasal Cannula Oxygen Flow Rate (L/min) 4 4 05/07/24 14:14 Temperature Temperature Source Pulse Rate 87 Respiratory Rate 18 Respiratory Effort Respiratory Depth Respiratory Pattern Blood Pressure 125/53 H Blood Pressure Mean 77 Pulse Ox 100 Oxygen Delivery Method Nasal Cannula Oxygen Flow Rate (L/min) 3 Positive well nourished and well developed Constitutional Narrative: BMI is 42.4. Patient is not awake or alert. She does open her eyes to questions. She has difficulty understanding what is asked of her. She is very hard of hearing. She is breathing more rapidly than 16 times a minute. General Appearance ED: well developed; Negative for cyanotic, diaphoretic, NAD or pallor HEENT Reports dry mucous membranes HEENT Narrative: Head is atraumatic normocephalic. Ears normal. Nares patent. Posterior pharynx out erythema today. Uvula midline. Mouth ED: Yes dry mucous membranes Mouth: dry mucous membranes Eyes EOMs intact bilaterally General Eye ED: Negative for pale conjunctiva or scleral icterus Neck no lymphadenopathy, supple and no JVD Chest Wall inspection of chest normal and palpation of chest normal Resp No normal respiratory effort and No clear to auscultation bilaterally Effort and Inspection: retractions supraclavicular Auscultation: rales right base and left lower and wheezes expiratory wheezes and scattered wheezes Cardio Negative for regular rate, regular rhythm, S1 normal heart sound, S2 normal heart sound or no murmurs GI normal to inspection, nondistended, normoactive bowel sounds, non-tender, non-distended and no masses; Negative for hepatosplenomegaly Back/Spine no CVA tenderness Extremity Negative for normal to inspection Extremity Narrative: Venous stasis dermatitis. Neuro No oriented x3 and CN's II-XII intact bilaterally Sensorium / Orientation: Negative for alert Psych Mood & Affect: depressed Skin No no rashes or lesions noted and No no wounds General Skin Exam: Negative for jaundice or pallor MDM MDM MDM Narrative Medical decision making narrative: Differential diagnosis would include cardiac ischemia, CHF, pneumonia, viral illness i.e. RSV influenza COVID specially since she resides at a nursing facility. Because of her decreased level consciousness ABG was obtained to assess AA gradient as well as CO2. Lab Data Attestation: I reviewed the patient's lab results. Lab results narrative: Patient's hemoglobin is higher than baseline which may represent hemoconcentration. Rapid antigen for COVID, influenza and RSV was positive for influenza A. Labs: Laboratory Results - last 24 hr 05/07/24 13:48 WBC 7.8 RBC 3.77 L Hgb 11.5 L Hct 36.1 L MCV 95.8 MCH 30.5 MCHC 31.9 L RDW Std Deviation 48.8 H RDW Coeff of Beth 13.7 Plt Count 164 MPV 10.5 Immature Gran % (Auto) 1.700 H Neut % (Auto) 71.9 H Lymph % (Auto) 15.2 L Noble % (Auto) 10.6 H Eos % (Auto) 0.5 Baso % (Auto) 0.1 Absolute Neuts (auto) 5.6 Absolute Lymphs (auto) 1.18 Nucleated RBC % 0 ABG Data Attestation: I personally reviewed and interpreted this ABG as follows: Interpretation: ABG reveals increased AA gradient. This represents chronic respiratory failure with hypoxemia. Patient has chronic hypercapnia with renal compensation. ABG results: ABG 05/07/24 14:14 Specimen Type ART Sample Site R Brach pH 7.43 Bicarbonate Actual 34.0 H Total CO2 36 Base Excess 10 H O2 Saturation 96 O2 % 4.0 ABG pCO2 51.3 H ABG pO2 82 O2 Delivery Device Not entered Vent Mode Not entered Radiography Chest X-Ray - ED: 1 View and Read by ED Physician (Left hemidiaphragm is somewhat obscured which may represent pneumonia. There is also obscuring of the left costophrenic angle. Patient is slightly rotated. His Tory volume is not adequate there are no curly B-lines. I do not believe patient has cephalization..) Diagnostic Testing: Clinical Impression(s) from Imaging Studies Chest X-Ray 05/07/24 14:15 IMPRESSION: Findings suggestive of left lower lobe infiltrate with blunting of the left costophrenic angle superimposed on vascular congestion and mild CHF. Reading Location: [id number] Radiologist report was read. I am not agreement with CHF if anything patient may have interstitial pneumonia due to influenza. EKG Initial EKG: Attestation: I personally reviewed and interpreted this EKG as follows: Interpretation: Sinus Rhythm (Rate is 77. Patient is a right bundle branch block. IN interval is under 6 ms. QRS duration 134 ms. QT duration 390 ms. [place] is normal) Treatment and Re-Evaluation :: Since patient has influenza and a left lower lobe infiltrate and resides from a half-way we will treat with Zosyn and vancomycin. She has infectious encephalopathy and will require admission to the hospital. Discharge Plan Triage Chief Complaint: Shortness of Breath ED Provider: Jose Nicholson Dx/Rx/DC Orders Clinical Impression: Left lower lobe pneumonia, Influenza A, Encephalopathy due to infection, Acute bronchospasm, History of chronic CHF Prescriptions: No Action paroxetine HCl 40 mg tablet 1 ea PO DAILY Patient Comments: take 1 tablet by mouth once daily albuterol sulfate 2.5 mg /3 mL (0.083 %) solution for nebulization 2.5 mg continuous nebulization Q8H PRN (Reason: shortness of breath or wheezing) potassium chloride 20 mEq tablet,ER particles/crystals 40 meq PO DAILY PRN PRN (Reason: LOW POTASSIUM) multivitamin 1 EACH tablet 1 tab PO DAILY Patient Comments: supplement calcium carbonate 600 MG tablet 600 mg PO DAILY Patient Comments: supplement latanoprost 0.005 % drops 1 drp EACH EYE QHS Patient Comments: place 1 drop into both eyes every evening pramipexole 0.5 mg tablet 0.5 mg PO BID Patient Comments: take 2 tablets by mouth at bedtime pantoprazole 40 mg tablet,delayed release (DR/EC) 40 mg PO DAILY Patient Comments: take 1 tablet by mouth once daily Eliquis 5 mg tablet 5 mg PO BID Patient Comments: take 1 tablet by mouth twice a day furosemide 40 mg Tablet 40 mg PO DAILY aspirin 81 mg Tablet,Delayed Release (Dr/Ec) 81 mg PO BREAKFAST Qty: 0 0RF atorvastatin 40 mg Tablet 40 mg PO QHS Qty: 0 0RF ergocalciferol (vitamin D2) [Vitamin D2] 1,250 mcg (50,000 unit) Capsule 1,250 mcg PO Q7D 49 Days Qty: 7 0RF nystatin [Nyamyc] 100,000 unit/gram Powder 1 applic topical BID Qty: 0 0RF Protocol: *Topical Application Instructions APPLICATION INSTRUCTIONS: Under bilateral breasts and groin diclofenac sodium 1 % gel 4 g TOPICAL BID PRN PRN (Reason: RT KNEE PAIN) calcium carbonate-vitamin D2 600 mg calcium- 200 unit tablet 2 tab PO DAILY ferrous sulfate [FeroSul] 325 mg (65 mg iron) Tablet 325 mg PO 1200,1700 Qty: 60 0RF folic acid 1 mg Tablet 1 mg PO BREAKFAST Qty: 60 0RF sennosides-docusate sodium [Stool Softener-Stimulant Laxat] 8.6-50 mg Tablet 2 tab PO BID Qty: 14 0RF acetaminophen 500 mg Tablet 1,000 mg PO Q8 Qty: 120 0RF acetaminophen 325 mg tablet 650 mg PO Q4H PRN (Reason: pain) albuterol sulfate 90 mcg/actuation HFA aerosol inhaler inhalation duloxetine 30 mg capsule,delayed release(DR/EC) 30 mg PO DAILY losartan 50 mg Tablet 50 mg PO DAILY Qty: 0 0RF metoprolol succinate 25 mg Tablet Extended Release 24 Hr 50 mg PO DAILY Qty: 0 0RF nystatin [Nyamyc] 100,000 unit/gram Powder 1 applic topical TID Qty: 0 0RF Protocol: *Topical Application Instructions APPLICATION INSTRUCTIONS: under bilateral breasts, groin and abdominal folds cephalexin 500 mg capsule 500 mg PO TID Qty: 15 0RF Rx Instructions: 1 3 times a day starting 01/22/2024 for a total of 5 days Primary Care Provider: Maryanne Howard Referrals: Maryanne Howard MD [Primary Care Provider] - Print Language: Welsh Disposition Disposition: [facility]
--- NOTE | 2024-05-07 15:55 | PCM.HP.STD ---
HPI - General General Date of Admission: 05/07/24 Date of Service: 05/07/24 Chief Complaint: Worsening shortness of breath and hypoxia HPI Narrative ELÍAS AHN, is a 83 F who presented to [facility] ED on 05/07/2024 with worsening shortness of breath and hypoxia. Patient lives at the assisted. She is 3 to 4 L nasal cannula at baseline. She has had some upper respiratory infectious symptoms over the past few days and the staff there noted that she was requiring more oxygen to maintain appropriate saturations. They also noted that she was not as alert as her normal this morning so they brought her in for further evaluation. Many patients at the assisted have had the flu recently. Patient was positive for influenza A in the ED. She was given 2 breathing treatments en route to the hospital with moderate improvement in her shortness of breath per patient. She was requiring only 4 L nasal cannula in the ED to maintain appropriate oxygen saturations. She did have some wheezing on exam noted and was given another breathing treatment in the ED. Chest x-ray showed left lower lobe infiltrate with blunting of the left costophrenic angle superimposed on vascular congestion and mild CHF. Patient notably did report yellowish-greenish sputum production over the past few days. Given her flu infection and concern for superimposed bacterial infection, she was started on Tamiflu and IV antibiotics and hospitalist was contacted for admission. I saw the patient at bedside in the ED. Patient was mildly fatigued appearing but otherwise sitting up fairly comfortably in bed, conversing normally, in no acute distress. Patient is hard of hearing at baseline but was able to have a normal conversation with me. Stated that she does not have any shortness of breath at rest currently. She does still feel somewhat wheezy especially at the end of expiration. Notes the breathing treatments have been helpful for her. She denies any fevers or chills. Denies any chest pain. No other acute concerns at this time. [facility] Medical History Elevated lactic acid level Dehydration Acute UTI Cardiology follow-up encounter History of echocardiogram Difficult intravenous access Loss of hearing History of radiation therapy Walker as ambulation aid Uses wheelchair Arthritis Urinary frequency Easy bruising Vertigo Dietary restriction History of hiatal hernia Non-smoker Chronic cough Wears dentures Wears glasses Anxiety History of edema History of heart attack HLD (hyperlipidemia) History of CHF (congestive heart failure) Sleep apnea Depression History of embolism Insomnia Shortness of breath on exertion GERD (gastroesophageal reflux disease) Left shoulder pain Osteopenia Anasarca Hypertension Congestive heart failure (CHF) Restless leg syndrome Home Medications ?Medication ?Instructions ?Recorded ?Last Taken ?Type calcium carbonate 600 mg PO DAILY Check with primary 01/14/15 Unknown History doctor multivitamin 1 tab PO DAILY Check with primary 01/14/15 Unknown History doctor paroxetine HCl 40 mg tablet 1 ea PO DAILY Check with primary 02/12/20 Unknown History doctor apixaban 5 mg tablet (Eliquis) 5 mg PO BID blood clot 05/30/22 12/22/22 History latanoprost 0.005 % eye drops 1 drp EACH EYE QHS glacoma 05/30/22 Unknown History pantoprazole 40 mg tablet,delayed 40 mg PO DAILY Check with primary 05/30/22 Unknown History release doctor pramipexole 0.5 mg tablet 0.5 mg PO BID restless leg 05/30/22 Unknown History furosemide 40 mg tablet 40 mg PO DAILY Leg Swelling 05/31/22 Unknown History aspirin 81 mg tablet,delayed 81 mg PO BREAKFAST #0 tabs 06/03/22 12/22/22 Rx release atorvastatin 40 mg tablet 40 mg PO QHS #0 tabs 06/03/22 Unknown Rx ergocalciferol (vitamin D2) 1,250 1,250 mcg PO Q7D 7 weeks #7 caps 06/03/22 12/22/22 Rx mcg (50,000 unit) capsule (Vitamin D2) nystatin 100,000 unit/gram topical 1 applic topical BID #0 grams 06/03/22 Unknown Rx powder ([facility]) albuterol sulfate 2.5 mg/3 mL 2.5 mg continuous nebulization Q8H 08/03/22 Unknown History (0.083 %) solution for nebulization PRN shortness of breath or wheezing potassium chloride 20 mEq 40 meq PO DAILY PRN PRN LOW 08/03/22 Unknown History tablet,extended release(part/cryst) POTASSIUM calcium carb-ergocalciferol (vit 2 tab PO DAILY 12/19/22 Unknown History D2) 600 mg calcium-200 unit tablet diclofenac sodium 1 % topical gel 4 g topical BID PRN PRN RT KNEE 12/19/22 Unknown History PAIN acetaminophen 500 mg tablet 1,000 mg (2 x 500 mg) PO Q8 #120 12/30/22 Unknown Rx tabs ferrous sulfate 325 mg (65 mg 325 mg PO 1200,1700 #60 tabs 12/30/22 Unknown Rx iron) tablet (FeroSul) folic acid 1 mg tablet 1 mg PO BREAKFAST #60 tabs 12/30/22 Unknown Rx sennosides 8.6 mg-docusate sodium 2 tab PO BID #14 tabs 12/30/22 Unknown Rx 50 mg tablet (Stool Softener-Stimulant Laxative) acetaminophen 325 mg tablet 650 mg PO Q4H PRN pain 01/19/24 Unknown History albuterol sulfate 90 mcg/actuation inhalation 01/19/24 Unknown History aerosol inhaler duloxetine 30 mg capsule,delayed 30 mg PO DAILY 01/19/24 Unknown History release cephalexin 500 mg capsule 500 mg PO TID #15 caps 01/21/24 Unknown Rx losartan 50 mg tablet 50 mg PO DAILY #0 tabs 01/21/24 Unknown Rx metoprolol succinate 25 mg 50 mg (2 x 25 mg) PO DAILY #0 tabs 01/21/24 Unknown Rx tablet,extended release 24 hr nystatin 100,000 unit/gram topical 1 applic topical TID #0 grams 01/21/24 Unknown Rx powder ([facility]) Allergy/AdvReac Type Severity Reaction Status Date / Time Penicillins (PCN) Allergy Hives Verified 05/07/24 12:19 Family History Other COPD (chronic obstructive pulmonary disease) Hypertension Surgical History History of cardiac catheterization History of shoulder surgery History of carpal tunnel surgery of right wrist History of endometrial ablation History of carpal tunnel surgery of left wrist History of hysterectomy History of dilation and curettage History of tooth extraction History of rotator cuff surgery History of left hip replacement History of right shoulder replacement History of total replacement of left shoulder joint Status post right partial knee replacement History of total left knee replacement History of total left hip replacement Social History Smoking Status: Never smoker ROS Constitutional Constitutional: Reports fatigue; Denies chills, fever(s) or weakness Eyes Eyes: Denies change in vision Cardiovascular Cardiovascular: Reports dyspnea on exertion; Denies chest pain, edema or lightheadedness Respiratory/Chest Respiratory/Chest: Reports cough, dyspnea, productive cough, shortness of breath at rest, shortness of breath with exertion and wheezing Gastrointestinal Gastrointestinal: Denies abdominal pain Musculoskeletal Musculoskeletal: Denies arthralgias or myalgias Vital Signs Vital Signs Vital Signs: 05/07/24 12:11 05/07/24 12:20 05/07/24 13:51 Temperature 98 F Temperature Source Oral Pulse Rate 79 82 Respiratory Rate 16 14 Respiratory Effort Short of Breath Respiratory Depth Normal Respiratory Pattern Normal Blood Pressure 159/76 H Blood Pressure Mean 103 Pulse Ox 95 Oxygen Delivery Method Nasal Cannula Nasal Cannula Oxygen Flow Rate (L/min) 4 4 05/07/24 14:14 Temperature Temperature Source Pulse Rate 87 Respiratory Rate 18 Respiratory Effort Respiratory Depth Respiratory Pattern Blood Pressure 125/53 H Blood Pressure Mean 77 Pulse Ox 100 Oxygen Delivery Method Nasal Cannula Oxygen Flow Rate (L/min) 3 Weight Weight: 112 kg Body Mass Index (BMI) 42.3 Physical Exam Const alert, oriented x3 and no apparent distress Constitutional Narrative: Elderly female, class III obesity, mildly fatigued appearing, hard of hearing but otherwise sitting up fairly comfortably in bed, conversing normally, in no acute distress. General Appearance: cooperative and comfortable HEENT normocephalic, head/scalp atraumatic, nasal mucous membranes and turbinates normal and moist oral mucous membranes Eyes PERRL, EOMs intact bilaterally and conjunctivae normal Neck full ROM Chest inspection of chest normal Resp normal respiratory effort and no use of accessory muscles Resp Narrative: Breathing comfortably on 4 L nasal cannula at rest. Mild crackles noted in bilateral mid lung zones with mild end expiratory wheezing noted. Cardio regular rate, regular rhythm, no murmurs and peripheral pulses 2+ throughout GI normal to inspection, nondistended, normoactive bowel sounds, soft to palpation, non-tender and non-distended Back/Spine normal ROM Extremity normal to inspection and no pedal edema Skin no rashes or lesions noted Neuro moves all extremities and no focal motor deficits Speech: speech normal Motor Exam: strength 5/5 throughout Psych mental status grossly normal Results Lab / Micro Data 05/07/24 13:48 05/07/24 13:48 Labs: Laboratory Results - last 24 hr 05/07/24 13:48: WBC 7.8, RBC 3.77 L, Hgb 11.5 L, Hct 36.1 L, MCV 95.8, MCH 30.5, MCHC 31.9 L, RDW Std Deviation 48.8 H, RDW Coeff of Beth 13.7, Plt Count 164, MPV 10.5, Immature Gran % (Auto) 1.700 H, Neut % (Auto) 71.9 H, Lymph % (Auto) 15.2 L, [place] % (Auto) 10.6 H, Eos % (Auto) 0.5, Baso % (Auto) 0.1, Absolute Neuts (auto) 5.6, Absolute Lymphs (auto) 1.18, Nucleated RBC % 0 Micro: Microbiology 05/07/24 13:50 Mucosa - Nose SARS-CoV-2, Influenza & RSV (PCR) - Final Influenzae A ABG Data ABG results: ABG 05/07/24 14:14 Specimen Type ART Sample Site R Brach pH 7.43 Bicarbonate Actual 34.0 H Total CO2 36 Base Excess 10 H O2 Saturation 96 O2 % 4.0 ABG pCO2 51.3 H ABG pO2 82 O2 Delivery Device Not entered Vent Mode Not entered Imaging Radiology Impression Chest X-Ray 05/07/24 14:15 IMPRESSION: Findings suggestive of left lower lobe infiltrate with blunting of the left costophrenic angle superimposed on vascular congestion and mild CHF. Reading Location: [id number] Assessment & Plan Assessment/Plan (1) Influenza A: PLAN: Plan Patient is an 83-year-old female who presented [facility] ED on 05/07/2024 with worsening shortness of breath and hypoxia. 1. Acute hypoxia in setting of chronic respiratory failure secondary to influenza A infection ? Admit under inpatient status to [facility]. Influenza A positive on admit. Wears 3 to 4 L nasal cannula at baseline and was requiring up to 5 L nasal cannula in the ED to maintain appropriate oxygen saturations. Chest x-ray appears very mildly worsened from previous with small bilateral infiltrates versus vascular congestion. Procalcitonin negative, low concern for superimposed bacterial infection. Will hold on antibiotics at this time. Patient wheezy on exam presume secondary to flu infection. There was concern for acute encephalopathy secondary to infection but patient was alert and oriented x 3 in the ED for me and answering questions appropriately. Will treat with Tamiflu and scheduled DuoNebs for now. Low threshold to add on steroids if needed. Wean supplemental oxygen as able. Can consider spot diuresis as well given possible mild vascular congestion. 2. Chronic HFpEF, hypertension, hyperlipidemia ? Last echo from 05/26 showed EF 65%, stage I diastolic dysfunction, moderate enlarged LA, no other concerning findings. Chest x-ray on admit with concern for mild vascular congestion. BNP normal. Was not given any fluids on admit. Will hold on IV fluids and give 1 dose of IV Lasix this evening. Will restart home p.o. Lasix, aspirin, statin, losartan, and Toprol on 05/08. 3. Chronic debility ? Resides in assisted at baseline. No need for physical therapy while here, will plan to return to assisted on discharge. Chronic medical conditions: ? Morbid obesity: BMI 42 on admit. Complicates hospital course, care and prognosis. ? History of DVT: Continue home Eliquis. ? GERD: Continue home PPI. ? Depression: Stable. Continue home duloxetine. ? Restless leg syndrome: Continue home Paxil. ? Osteoarthritis: Tylenol as needed ordered. DVT prophylaxis: Not indicated, on Eliquis CODE STATUS: Full code, verified Expected disposition: Back to assisted, 2 to 3 days Total clinical time spent by myself addressing the patient's medical issues, reviewing all the data, and collaborating with patient's care team: 75 minutes. Charges/Coding Visit Charges Inpatient E&M: 70401 Init Hosp L3
[2024-05-07 16:13] LABS: Lactic Acid 1.3 mmol/L (0.0-2.0)
--- NOTE | 2024-05-07 16:13 | ED.RN ---
Nurse at [facility] updated on pt's positive Flu A and admission to [facility]>
[2024-05-07 16:14] LABS: ALB/GLOB Ratio 0.9 RATIO (0.9-2.4); AST(SGOT) 38 U/L (<=31); Alanine Aminotransfer ALT/SGPT 12 U/L (<=34); Albumin, Serum 3.6 g/dL (3.4-4.8); Alkaline Phosphatase 94 U/L (35-104); Anion Gap 10 (5-15); BUN 20 mg/dL (4-19); BUN/Creat Ratio 32.1 RATIO (10-20); Calcium,Total 9.9 mg/dL (7.6-11.0); Carbon Dioxide 31.1 mmol/L (21.0-32.0); Chloride 96 mmol/L (98-108); Creatinine, Serum 0.62 mg/dL (0.70-1.20); EST Glomerular Filtration Rate 89 (>60); Estimated Creatinine Clearance 66.44 ml/min (50-250); Globulin 4.1 g/dL (2.2-4.2); Glucose 92 mg/dL (70-99); Potassium 4.1 mmol/L (3.3-5.1); Pro- Brain NATRIURETIC PEPTIDE 482 pg/mL (<=1800); Protein, Total 7.7 g/dL (5.9-8.4); Sodium Level 138 mmol/L (133-145); Total Bilirubin 0.63 mg/dL (0.00-1.30)
[2024-05-07] MEDS: levoFLOXacin IV 750 MG/150 ML BAG 100 MG IV (16:44)
[2024-05-07 18:12] LABS: Troponin T High Sensitivity 27 ng/L (<=14)
[2024-05-07 18:23] LABS: Procalcitonin 0.06 ng/mL (<=0.10)
[2024-05-07] MEDS: Vancomycin HCl 2,000 MG in 0.9% Normal Saline (500mL Bag) 500 ML 250 MG IV (18:39)
[2024-05-07 19:18] LABS: TROPONIN VARIANCE 2 HR 2; Troponin T High Sens 2 HR 30 ng/L (<=14)
--- NOTE | 2024-05-07 19:33 | ED.RN ---
This RN attempted to complete the patient's medication reconciliation, however the patient denied knowing any of her medications.
[2024-05-07] MEDS: Pramipexole Di-HCl 0.5 MG Tablet PO (22:55)
[2024-05-07] MEDS: APIXABAN 5 MG TABLET PO (22:55)
[2024-05-07] MEDS: Furosemide 40 MG/4 ML Vial IV (22:55)
[2024-05-07] MEDS: Atorvastatin Calcium 40 MG Tablet PO (22:55)
[2024-05-07 23:11] LABS: TROPONIN VARIANCE 4 HR 5; Troponin T High Sens 4 HR 32 ng/L (<=14)
[2024-05-08] VITALS (8 sets, daily range): BP systolic 117–149; BP diastolic 61–71; PULSE 75–97; RESP 18–20; TEMP 36.6–36.9; O2SAT 96–98
[2024-05-08] MEDS: guaiFENesin 10 ML UDC (200MG/10ML) PO (04:54)
[2024-05-08 07:22] LABS: Mean Corp Hgb Conc 32.3 g/dL (32-36); Mean Corpuscular Hgb 30.5 pg (27.0-32.0); Mean Corpuscular Volume 94.5 fL (81-99); Mean Platelet Vol. 10.5 fl (6.2-12.0); Platelet Count 177 K/mm3 (150-450); RBC Distribution Width CV 13.6 % (11.6-14.6); RBC Distribution Width SD 47.5 fl (35.1-43.9); Red Blood Count 3.28 M/mm3 (4.2-5.4); White Blood Count 6.5 K/mm3 (4.4-11.0)
[2024-05-08 08:21] LABS: Anion Gap 11 (5-15); BUN 18 mg/dL (4-19); BUN/Creat Ratio 26.3 RATIO (10-20); Calcium,Total 9.2 mg/dL (7.6-11.0); Carbon Dioxide 30.3 mmol/L (21.0-32.0); Chloride 96 mmol/L (98-108); Creatinine, Serum 0.67 mg/dL (0.70-1.20); EST Glomerular Filtration Rate 87 (>60); Estimated Creatinine Clearance 65.72 ml/min (50-250); Glucose 97 mg/dL (70-99); Potassium 3.3 mmol/L (3.3-5.1); Sodium Level 137 mmol/L (133-145)
[2024-05-08] MEDS: Calcium Carbonate 500 MG Tablet PO (10:32)
[2024-05-08] MEDS: Metoprolol(XL)Succ 50 MG Tablet PO (10:32)
--- NOTE | 2024-05-08 10:34 | PN.HOSP_ITS ---
Reason for Visit Reason for Visit: Diagnoses Influenza due to other identified influenza virus with other respiratory manifestations (05/07/24) Subjective Subjective Patient is an 83-year-old lady who presented with progressive shortness of breath and weakness tested positive for acute influenza A infection admitted to regular nursing floor for further management Objective Data Objective Data Vital Signs: Vital Signs Temp Pulse Resp BP Pulse Ox O2 Del Method O2 Flow Rate 98 F 97 20 H 139/61 H 98 Nasal Cannula 4 05/08/24 04:46 05/08/24 04:46 05/08/24 04:46 05/08/24 04:46 05/08/24 04:46 05/08/24 04:46 05/08/24 04:46 Oxygen Flow Rate (L/min) 4 Oxygen Delivery Method Nasal Cannula Weight: 109.9 kg Body Mass Index (BMI) 41.5 Intake & Output: Intake and Output for Last 24 Hours 05/06/24 05/07/24 05/08/24 23:59 23:59 23:59 Intake Total 690 / 690 500 / 500 Output Total 800 / 800 Balance 690 / 690 -300 / -300 Lab / Micro Data 05/08/24 06:42 05/08/24 06:42 Labs: Laboratory Results - last 24 hr 05/07/24 13:48: WBC 7.8, RBC 3.77 L, Hgb 11.5 L, Hct 36.1 L, MCV 95.8, MCH 30.5, MCHC 31.9 L, RDW Std Deviation 48.8 H, RDW Coeff of Beth 13.7, Plt Count 164, MPV 10.5, Immature Gran % (Auto) 1.700 H, Neut % (Auto) 71.9 H, Lymph % (Auto) 15.2 L, [place] % (Auto) 10.6 H, Eos % (Auto) 0.5, Baso % (Auto) 0.1, Absolute Neuts (auto) 5.6, Absolute Lymphs (auto) 1.18, Nucleated RBC % 0, Sodium 138, Potassium 4.1, Chloride 96 L, Carbon Dioxide 31.1, Anion Gap 10, BUN 20 H, C reatinine 0.62 L, Estim Creat Clear Calc 66.44, Est GFR (MDRD) Non-Af 89, B UN/Creatinine Ratio 32.1 H, Glucose 92, Lactic Acid 1.3, Calcium 9.9, Total Bilirubin 0.63, AST 38 H, ALT 12, Alkaline Phosphatase 94, Troponin T High Sens 27 H, NT pro BNP II 482, Total Protein 7.7, Albumin 3.6, Globulin 4.1, Albumin/Globulin Ratio 0.9 05/07/24 16:40: Procalcitonin 0.06 05/07/24 18:41: Troponin T Hi Sens 2 Hr 30 H, Troponin T Hi Sens 2Hr Delta 2 05/07/24 22:36: Troponin T Hi Sens 4Hr 32 H, Troponin T Hi Sens 4Hr Delta 5 05/08/24 06:42: WBC 6.5, RBC 3.28 L, Hgb 10.0 L, Hct 31.0 L, MCV 94.5, MCH 30.5, MCHC 32.3, RDW Std Deviation 47.5 H, RDW Coeff of Beth 13.6, Plt Count 177, MPV 10.5, Sodium 137, Potassium 3.3, Chloride 96 L, Carbon Dioxide 30.3, Anion Gap 11, BUN 18, Creatinine 0.67 L, Estim Creat Clear Calc 65.72, Est GFR (MDRD) Non- Af 87, BUN/Creatinine Ratio 26.3 H, Glucose 97, Calcium 9.2 Micro: Microbiology 05/07/24 13:50 Mucosa - Nose SARS-CoV-2, Influenza & RSV (PCR) - Final Influenzae A ABG Data ABG results: ABG 05/07/24 14:14 Specimen Type ART Sample Site R Brach pH 7.43 Bicarbonate Actual 34.0 H Total CO2 36 Base Excess 10 H O2 Saturation 96 O2 % 4.0 ABG pCO2 51.3 H ABG pO2 82 O2 Delivery Device Not entered Vent Mode Not entered Radiography Diagnostic Testing: Radiology Impression Chest X-Ray 05/07/24 14:15 IMPRESSION: Findings suggestive of left lower lobe infiltrate with blunting of the left costophrenic angle superimposed on vascular congestion and mild CHF. Reading Location: [facility] Physical Exam Narrative GENERAL: cooperative HEENT: Atraumatic; normocephalic EYES; Anicteric, Normal Conjunctiva NECK; supple, normal thyroid, RESPIRATORY: Diminished to auscultation CARDIOVASCULAR: Regular S1 S2, GI: soft, normoactive bowel sounds, : No Renal angle tenderness; EXTREMITIES: No edema, no clubbing, MUSCULOSKELETAL: no muscle wasting NEURO: Awake; no lateralizing signs. SKIN: No Rash PSYCH; Flat affect Assessment & Plan Assessment/Plan (1) Influenza A: PLAN: Plan Patient is an 83-year-old lady who presented with progressive shortness of breath and weakness tested positive for acute influenza A infection admitted to regular nursing floor for further management 1. Acute hypoxia ? Secondary to acute influenza A infection admitted to regular nursing floor for symptom management. Patient started on Tamiflu placed on supplemental oxygen titrated to keep saturation greater than 90 2. Acute on chronic congestive heart failure with preserved ejection fraction -cho from 05/26 showed EF 65%, stage I diastolic dysfunction, moderate enlarged LA, no other concerning findings. Chest x-ray on admit with concern for mild vascular congestion patient did receive a dose of Lasix 3. Class III obesity with BMI of 41.6 ? Complicating care weight loss advised 4. Hypertension ? Blood pressure controlled, home medications continued with dose adjustment as needed 5. Dyslipidemia ?Patient is on statin therapy, continued at home dose Patient is an 83-year-old female who presented [facility] ED on 05/07/2024 with worsening shortness of breath and hypoxia. 6. Previous history of DVT ? Patient is on systemic anticoagulation with apixaban continue 7. Depression with anxiety ? Patient is on duloxetine 8. Restless leg syndrome ? Patient is on pramipexole 9. GERD ? Patient is on PPI 10. Generalized osteoarthritis ? Pain medication as needed 11. Physical deconditioning ? Requested for PT OT eval and social media editor to assist with discharge planning 12. Anemia ? Secondary to chronic disorder monitoring H&H and transfuse if patient becomes symptomatic or hemoglobin falls below 7 13. Chronic hypoxic respiratory failure ? Patient is on baseline home oxygen 4 L at rest 14. DVT prophylaxis ? Patient is on apixaban did continue Time spent in the patient's overall evaluation,decision-making process, review of diagnostic data, adjustment of management, discussion with other providers, nursing nursing and ancillary staff involved in patient's care documentation, 50 Minutes Charges/Coding Visit Charges Inpatient E&M: 64215 [facility] L3
[2024-05-08] MEDS: Pramipexole Di-HCl 0.5 MG Tablet PO ×2 (10:35→20:54)
[2024-05-08] MEDS: Multivitamins,Therapeutic Tablet 1 TABLET PO (10:35)
[2024-05-08] MEDS: Furosemide 40 MG Tablet PO (10:35)
[2024-05-08] MEDS: DULoxetine Hcl 30 MG Capsule PO ×2 (10:35→10:36)
[2024-05-08] MEDS: APIXABAN 5 MG TABLET PO ×2 (10:35→20:53)
[2024-05-08] MEDS: Folic Acid 1 MG Tablet PO (10:36)
[2024-05-08] MEDS: Losartan Potassium 50 MG Tablet PO (10:36)
[2024-05-08] MEDS: Aspirin E.C. 81 MG Tablet PO (10:36)
[2024-05-08] MEDS: Ferrous Sulfate 325 MG Tablet PO (10:36)
[2024-05-08] MEDS: Pantoprazole Sodium 40 MG Tablet PO (10:36)
[2024-05-08] MEDS: Lactobacillis Acidophilus 1 CAP PO ×2 (10:36→20:53)
[2024-05-08] MEDS: Oseltamivir Phosphate 75 MG Capsule PO ×2 (12:56→20:54)
--- NOTE | 2024-05-08 14:28 | CASEMGMT ---
Social Work- Pt is from [facility], intermediate level of care, and plans to return at discharge. Pt reports contacts as son and friend are correct. DCA notified. SW remains available to follow. Plan: [facility]; intermediate level of care ISSAC Estrada
--- NOTE | 2024-05-08 15:34 | CASEMGMT ---
Discharge Planning Updates sent to [facility] with note asking for confirmation pt can return intermediate. Brittany Chapman DC Planning Asst.
--- NOTE | 2024-05-08 16:33 | CHAPLAIN ---
Type of Pastoral Visit _x__ Initial Visit ___ Follow-up Visit ___ On-call Visit ___ General Patient Visit ___ Spiritual Assessment ___ Family Conference ___ Bereavement ___ Rapid Response ___ Code Blue ___ Other (describe below) Pastoral Care Referral From _x__ Patient ___ Family ___ Nurse ___ Physician ___ Director Of Adult Epilepsy ___ [employer] Network Architect ___ Other (describe below) Sacrament/Intervention _x__ Active listening ___ Anointing ___ Jainism ___ Bereavement ___ Communion ___ Maria Elena exploration ___ _x__ Life review _x__ Prayer ___ Reconciliation ___ Sacrament of Sick _x__ Supportive presence ___ Wedding ___ Other (describe below) Pastoral Comments patient is here from a ECF and admits to worries about if I'm going to wake up after I fall asleep; pt has desire to see more family grow up and to be around; pt welcomes presence, ability to talk with someone, and for prayer over her health and concerns
[2024-05-08] MEDS: Latanoprost 0.005% 1 Bottle 1 DRP EACH EYE (20:52)
[2024-05-08] MEDS: Atorvastatin Calcium 40 MG Tablet PO (20:53)
[2024-05-09 03:36] VITALS: BP 137/58; PULSE 75; RESP 18; TEMP 36.8; O2SAT 100
[2024-05-09 07:25] VITALS: O2SAT 91
[2024-05-09 07:43] LABS: Absolute Lymphocyte Count 1.35 X10^3/uL (0.83-4.51); Absolute Neutrophil Count 4.6 X10^3/uL (2.0-7.7); Basophil# 0.03 X10^3/uL; Basophil% 0.4 % (0-1); Eosinophil# 0.17 X10^3/uL; Eosinophils% 2.3 % (0-5); Hematocrit 34.7 % (37-47); Lymphocyte # 1.35 X10^3/ul (0.83-4.51); Lymphocyte % 18.4 % (19-41); Mean Corp Hgb Conc 31.7 g/dL (32-36); Mean Corpuscular Hgb 30.5 pg (27.0-32.0); Mean Corpuscular Volume 96.1 fL (81-99); Monocyte# 1.12 X10^3/uL; Monocyte% 15.3 % (0-10); NRBC Flagged by Analyzer 0 % (0-5); Neutrophil # 4.61 X10^3/uL (2.7-7.7); Neutrophil % 63.1 % (47-70); Platelet Count 212 K/mm3 (150-450); RBC Distribution Width CV 13.4 % (11.6-14.6); RBC Distribution Width SD 47.8 fl (35.1-43.9); Red Blood Count 3.61 M/mm3 (4.2-5.4); White Blood Count 7.3 K/mm3 (4.4-11.0)
[2024-05-09 08:22] LABS: Anion Gap 12 (5-15); BUN 17 mg/dL (4-19); BUN/Creat Ratio 27.5 RATIO (10-20); Calcium,Total 9.1 mg/dL (7.6-11.0); Carbon Dioxide 27.3 mmol/L (21.0-32.0); Chloride 96 mmol/L (98-108); Creatinine, Serum 0.62 mg/dL (0.70-1.20); EST Glomerular Filtration Rate 89 (>60); Estimated Creatinine Clearance 65.72 ml/min (50-250); Glucose 89 mg/dL (70-99); Magnesium 1.4 mg/dL (1.5-2.2); Phosphorus 3.6 mg/dL (2.7-4.5); Sodium Level 136 mmol/L (133-145)
[2024-05-09 09:09] VITALS: BP 155/77; PULSE 81; RESP 18; TEMP 36.6; O2SAT 100
[2024-05-09] MEDS: APIXABAN 5 MG TABLET PO (09:12)
[2024-05-09] MEDS: Folic Acid 1 MG Tablet PO (09:12)
[2024-05-09] MEDS: Pramipexole Di-HCl 0.5 MG Tablet PO (09:12)
[2024-05-09] MEDS: Calcium Carbonate 500 MG Tablet PO (09:12)
[2024-05-09] MEDS: Oseltamivir Phosphate 75 MG Capsule PO (09:12)
[2024-05-09] MEDS: Aspirin E.C. 81 MG Tablet PO (09:12)
[2024-05-09] MEDS: Lactobacillis Acidophilus 1 CAP PO (09:12)
[2024-05-09 09:13] VITALS: BP 155/77; PULSE 81
[2024-05-09] MEDS: Losartan Potassium 50 MG Tablet PO (09:13)
[2024-05-09] MEDS: Furosemide 40 MG Tablet PO (09:13)
[2024-05-09] MEDS: Pantoprazole Sodium 40 MG Tablet PO (09:13)
[2024-05-09] MEDS: Metoprolol(XL)Succ 50 MG Tablet PO (09:13)
[2024-05-09] MEDS: Ferrous Sulfate 325 MG Tablet PO (09:14)
[2024-05-09] MEDS: Multivitamins,Therapeutic Tablet 1 TABLET PO (09:14)
--- NOTE | 2024-05-09 09:35 | TREXTCAR_ITS ---
Diet Diet Order/Speech Therapy: 05/07/24 21:14 Diet: Cardiac - Heart Healthy Food consistency:: Regular Liquid Consistency:: Regular/Thin Routine Orders/Code Status Code Status: Full Code DC O2, CPAP, BIPAP needs Home O2 Discharge instructions: Yes Type of respiratory needs?: Oxygen (2) Oxygen frequency: Continuous Continuous oxygen liters per minute: 2 Therapies Physical Therapy: Eval and Treat Occupational Therapy: Eval and Treat Problem/Diagnosis (1) Influenza A: Status: Acute Code(s): J10.1 - Influenza due to other identified influenza virus with other respiratory manifestations Plan Patient is an 83-year-old lady who presented with progressive shortness of breath and weakness tested positive for acute influenza A infection admitted to regular nursing floor for further management 1. Acute hypoxia ? Secondary to acute influenza A infection admitted to regular nursing floor for symptom management. Patient started on Tamiflu placed on supplemental oxygen titrated to keep saturation greater than 90 2. Acute on chronic congestive heart failure with preserved ejection fraction -cho from 05/26 showed EF 65%, stage I diastolic dysfunction, moderate enlarged LA, no other concerning findings. Chest x-ray on admit with concern for mild vascular congestion patient did receive a dose of Lasix 3. Class III obesity with BMI of 41.6 ? Complicating care weight loss advised 4. Hypertension ? Blood pressure controlled, home medications continued with dose adjustment as needed 5. Dyslipidemia ?Patient is on statin therapy, continued at home dose Patient is an 83-year-old female who presented [facility] ED on 05/07/2024 with worsening shortness of breath and hypoxia. 6. Previous history of DVT ? Patient is on systemic anticoagulation with apixaban continue 7. Depression with anxiety ? Patient is on duloxetine 8. Restless leg syndrome ? Patient is on pramipexole 9. GERD ? Patient is on PPI 10. Generalized osteoarthritis ? Pain medication as needed 11. Physical deconditioning ? Requested for PT OT eval and social services assistant to assist with discharge planning 12. Anemia ? Secondary to chronic disorder monitoring H&H and transfuse if patient becomes symptomatic or hemoglobin falls below 7 13. Chronic hypoxic respiratory failure ? Patient is on baseline home oxygen 4 L at rest 14. DVT prophylaxis ? Patient is on apixaban did continue Time spent in the patient's overall evaluation,decision-making process, review of diagnostic data, adjustment of management, discussion with other providers, nursing nursing and ancillary staff involved in patient's care documentation, 50 Minutes Allergies/Procedures Done in Hospital Allergies Penicillins (PCN) Allergy (Verified 05/07/24 12:19) Hives Type of Care/Length of Stay Estimated LOS: More Than 30 Days Type of Care Needed: Intermediate Rehab Potential: Fair Prognosis: Fair Additional Orders/Day of Discharge Day of Discharge: 05/09/24 Dietary and Speech Recommendations Dietitian Recommendations/Changes: Continue Cardiac diet to manage medical conditions. Will order 120mL EPHP TID with medpass to promote stable weight. Discharge Plan Admission Admit Date/Time: 05/07/24 16:10 Attending Provider: Naresh Watson Primary Care Provider: Maryanne Howard Consulting Providers: Freddie Galo Discharge Orders/Prescriptions Prescriptions: New melatonin 3 mg Tablet 3 mg PO QHS PRN PRN (Reason: Insomnia) Qty: 0 0RF oseltamivir 75 mg Capsule 75 mg PO BID Qty: 8 0RF magnesium chloride [Mag 64] 64 mg Tablet,Delayed Release (Dr/Ec) 128 mg PO BID Qty: 0 0RF Ensure Plus High Protein 0.08 gram-1.5 kcal/mL Liquid 120 ml PO TIDCM Qty: 0 0RF Continued paroxetine HCl 40 mg tablet 1 ea PO DAILY Patient Comments: take 1 tablet by mouth once daily albuterol sulfate 2.5 mg /3 mL (0.083 %) solution for nebulization 2.5 mg continuous nebulization Q8H PRN (Reason: shortness of breath or wheezing) potassium chloride 20 mEq tablet,ER particles/crystals 40 meq PO DAILY multivitamin 1 EACH tablet 1 tab PO DAILY Patient Comments: supplement calcium carbonate 600 MG tablet 600 mg PO DAILY Patient Comments: supplement latanoprost 0.005 % drops 1 drp EACH EYE QHS Patient Comments: place 1 drop into both eyes every evening pramipexole 0.5 mg tablet 1 mg PO BID Patient Comments: take 2 tablets by mouth at bedtime pantoprazole 40 mg tablet,delayed release (DR/EC) 40 mg PO DAILY Patient Comments: take 1 tablet by mouth once daily Eliquis 5 mg tablet 5 mg PO BID Patient Comments: take 1 tablet by mouth twice a day furosemide 40 mg Tablet 40 mg PO DAILY aspirin 81 mg Tablet,Delayed Release (Dr/Ec) 81 mg PO BREAKFAST Qty: 0 0RF atorvastatin 40 mg Tablet 40 mg PO QHS Qty: 0 0RF nystatin [Nyamyc] 100,000 unit/gram Powder 1 applic topical BID Qty: 0 0RF Protocol: *Topical Application Instructions APPLICATION INSTRUCTIONS: Under bilateral breasts and groin diclofenac sodium 1 % gel 4 g TOPICAL BID PRN PRN (Reason: RT KNEE PAIN) calcium carbonate-vitamin D2 600 mg calcium- 200 unit tablet 2 tab PO DAILY ferrous sulfate [FeroSul] 325 mg (65 mg iron) Tablet 325 mg PO 1200,1700 Qty: 60 0RF folic acid 1 mg Tablet 1 mg PO BREAKFAST Qty: 60 0RF sennosides-docusate sodium [Stool Softener-Stimulant Laxat] 8.6-50 mg Tablet 2 tab PO BID Qty: 14 0RF acetaminophen 500 mg Tablet 1,000 mg PO Q8 Qty: 120 0RF albuterol sulfate 90 mcg/actuation HFA aerosol inhaler 2 puff inhalation Q4H PRN (Reason: BREATHING) duloxetine 30 mg capsule,delayed release(DR/EC) 30 mg PO DAILY losartan 50 mg Tablet 50 mg PO DAILY Qty: 0 0RF metoprolol succinate 25 mg Tablet Extended Release 24 Hr 50 mg PO DAILY Qty: 0 0RF Lactobacillus rhamnosus GG 10 billion cell capsule 1 cap PO BID magnesium oxide 500 mg capsule 500 mg PO TID ondansetron HCl 8 mg tablet 8 mg PO Q6H PRN (Reason: nausea and vomiting) Rx Instructions: 1st dose 1-2 hr before radiation Referrals / Follow Up: Maryanne Howard MD [Primary Care Provider] - Disposition Disposition (needs filled in before D/C Order can be placed): NonSkilled NH/Intermed Care
--- NOTE | 2024-05-09 09:39 | PCM.DC.SUM ---
Providers Date of Admission: 05/07/24 Date of Discharge: 05/09/24 Primary Care Physician: Dr. Maryanne Howard MD Reason For Visit: WORSENING SHORTNESS OF BREATH AND HYPOXIA Diagnosis Discharge Diagnosis (1) Influenza A: Status: Acute Code(s): J10.1 - Influenza due to other identified influenza virus with other respiratory manifestations Plan Patient is an 83-year-old lady who presented with progressive shortness of breath and weakness tested positive for acute influenza A infection admitted to regular nursing floor for further management 1. Acute hypoxia ? Secondary to acute influenza A infection admitted to regular nursing floor for symptom management. Patient started on Tamiflu placed on supplemental oxygen titrated to keep saturation greater than 90 2. Acute on chronic congestive heart failure with preserved ejection fraction -cho from 05/26 showed EF 65%, stage I diastolic dysfunction, moderate enlarged LA, no other concerning findings. Chest x-ray on admit with concern for mild vascular congestion patient did receive a dose of Lasix 3. Class III obesity with BMI of 41.6 ? Complicating care weight loss advised 4. Hypertension ? Blood pressure controlled, home medications continued with dose adjustment as needed 5. Dyslipidemia ?Patient is on statin therapy, continued at home dose Patient is an 83-year-old female who presented [facility] ED on 05/07/2024 with worsening shortness of breath and hypoxia. 6. Previous history of DVT ? Patient is on systemic anticoagulation with apixaban continue 7. Depression with anxiety ? Patient is on duloxetine 8. Restless leg syndrome ? Patient is on pramipexole 9. GERD ? Patient is on PPI 10. Generalized osteoarthritis ? Pain medication as needed 11. Physical deconditioning ? Requested for PT OT eval and social worker school to assist with discharge planning 12. Anemia ? Secondary to chronic disorder monitoring H&H and transfuse if patient becomes symptomatic or hemoglobin falls below 7 13. Chronic hypoxic respiratory failure ? Patient is on baseline home oxygen 4 L at rest 14. DVT prophylaxis ? Patient is on apixaban did continue Time spent in the patient's overall evaluation,decision-making process, review of diagnostic data, adjustment of management, discussion with other providers, nursing nursing and ancillary staff involved in patient's care documentation, 35 Minutes Medications at Discharge Home Medications calcium carbonate 600 mg PO DAILY Check with primary doctor 01/14/15 multivitamin 1 tab PO DAILY supplement 01/14/15 paroxetine HCl 40 mg tablet 1 ea PO DAILY Check with primary doctor 02/12/20 apixaban 5 mg tablet (Eliquis) 5 mg PO BID blood clot 05/30/22 latanoprost 0.005 % eye drops 1 drp EACH EYE QHS [place] 05/30/22 pantoprazole 40 mg tablet,delayed release 40 mg PO DAILY Check with primary doctor 05/30/22 pramipexole 0.5 mg tablet 1 mg PO BID restless leg 05/30/22 furosemide 40 mg tablet 40 mg PO DAILY Leg Swelling 05/31/22 aspirin 81 mg tablet,delayed release 81 mg PO BREAKFAST #0 tabs 06/03/22 atorvastatin 40 mg tablet 40 mg PO QHS hld #0 tabs 06/03/22 nystatin 100,000 unit/gram topical powder (Nyamyc) 1 applic topical BID yeasty #0 grams 06/03/22 albuterol sulfate 2.5 mg/3 mL (0.083 %) solution for nebulization 2.5 mg continuous nebulization Q8H PRN shortness of breath or wheezing 08/03/22 potassium chloride 20 mEq tablet,extended release(part/cryst) 40 meq PO DAILY LOW POTASSIUM 08/03/22 calcium carb-ergocalciferol (vit D2) 600 mg calcium-200 unit tablet 2 tab PO DAILY SUPPLEMANT 12/19/22 diclofenac sodium 1 % topical gel 4 g topical BID PRN PRN RT KNEE PAIN 12/19/22 acetaminophen 500 mg tablet 1,000 mg (2 x 500 mg) PO Q8 PAIN #120 tabs 12/30/22 ferrous sulfate 325 mg (65 mg iron) tablet (FeroSul) 325 mg PO 1200,1700 #60 tabs 12/30/22 folic acid 1 mg tablet 1 mg PO BREAKFAST supplement #60 tabs 12/30/22 sennosides 8.6 mg-docusate sodium 50 mg tablet (Stool Softener-Stimulant Laxative) 2 tab PO BID stool soft #14 tabs 12/30/22 albuterol sulfate 90 mcg/actuation aerosol inhaler 2 puff inhalation Q4H PRN BREATHING 01/19/24 duloxetine 30 mg capsule,delayed release 30 mg PO DAILY DEPRESSION 01/19/24 losartan 50 mg tablet 50 mg PO DAILY bp #0 tabs 01/21/24 metoprolol succinate 25 mg tablet,extended release 24 hr 50 mg (2 x 25 mg) PO DAILY heart #0 tabs 01/21/24 Lactobacillus rhamnosus GG 10 billion cell capsule 1 cap PO BID PROBITIC 05/07/24 magnesium oxide 500 mg capsule 500 mg PO TID SUPPLEMENT 05/07/24 ondansetron HCl 8 mg tablet 8 mg PO Q6H PRN nausea and vomiting 05/07/24 food supplemt, lactose-reduced 0.08 gram-1.5 kcal/mL oral liquid (Ensure Plus High Protein) 120 ml PO TIDCM #0 mL 05/09/24 magnesium chloride 64 mg (magnesium chloride) tablet,delayed release (Mag 64) 128 mg (2 x 64 mg) PO BID #0 tabs 05/09/24 melatonin 3 mg tablet 3 mg PO QHS PRN PRN Insomnia #0 tabs 05/09/24 oseltamivir 75 mg capsule 75 mg PO BID #8 caps 05/09/24 Physical Exam Narrative GENERAL: cooperative HEENT: Atraumatic; normocephalic EYES; Anicteric, Normal Conjunctiva NECK; supple, normal thyroid, RESPIRATORY: Diminished to auscultation CARDIOVASCULAR: Regular S1 S2, GI: soft, normoactive bowel sounds, : No Renal angle tenderness; EXTREMITIES: No edema, no clubbing, MUSCULOSKELETAL: no muscle wasting NEURO: Awake; no lateralizing signs. SKIN: No Rash PSYCH; Flat affect Weight / BMI Weight Weight: 109.9 kg Body Mass Index (BMI) 41.5 ABG / Lab / Microbiology Data 05/09/24 07:33 05/09/24 06:28 Laboratory: Laboratory Results - last 24 hr 05/09/24 06:28: WBC Cancelled, Corrected WBC Cancelled, RBC Cancelled, Hgb Cancelled, Hct Cancelled, MCV Cancelled, MCH Cancelled, MCHC Cancelled, RDW Std Deviation Cancelled, RDW Coeff of Beth Cancelled, Plt Count Cancelled, MPV Cancelled, Immature Gran % (Auto) Cancelled, Neut % (Auto) Cancelled, Lymph % (Auto) Cancelled, [place] % (Auto) Cancelled, Eos % (Auto) Cancelled, Baso % (Auto) Cancelled, Absolute Neuts (auto) Cancelled, Absolute Lymphs (auto) Cancelled, Total Counted Cancelled, Neutrophils % (Manual) Cancelled, Band Neutrophils % Cancelled, Lymphocytes % (Manual) Cancelled, Monocytes % (Manual) Cancelled, Eosinophils % (Manual) Cancelled, Basophils % (Manual) Cancelled, Metamyelocytes % Cancelled, Myelocytes % Cancelled, Promyelocytes % Cancelled, Blast Cells % Cancelled, Plasma Cell % (Manual) Cancelled, Other Cells % Cancelled, Nucleated RBC % Cancelled, Nucleated RBCs/100 WBC Cancelled, Differential Comment Cancelled, Diff Path Review Cancelled, Hypersegmented Neuts Cancelled, Atypical Lymphocytes Cancelled, Reactive Lymphocytes Cancelled, Smudge Cells Cancelled, Toxic Granulation Cancelled, Toxic Vacuolation Cancelled, Dohle Bodies Cancelled, Rafy Rods Cancelled, Platelet Estimate Cancelled, Plt Morphology Comment Cancelled, RBC Morphology Cancelled 05/09/24 06:28: RBC Morphology Cancelled, Polychromasia Cancelled, Hypochromasia Cancelled, Basophilic Stippling Cancelled, Anisocytosis Cancelled, Microcytosis Cancelled, Macrocytosis Cancelled, Spherocytes Cancelled, Sickle Cells Cancelled, Target Cells Cancelled, Tear Drop Cells Cancelled, Ovalocytes Cancelled, Stomatocytes Cancelled, [place] Bodies Cancelled, Spencer Cells Cancelled, Bite Cells Cancelled, Crenated Cell Cancelled, Acanthocytes (Spur) Cancelled, Rouleaux Cancelled, Schistocytes Cancelled, Sodium 136, Potassium 4.0, Chloride 96 L, Carbon Dioxide 27.3, Anion Gap 12, BUN 17, Creatinine 0.62 L, Estim Creat Clear Calc 65.72, Est GFR (MDRD) Non-Af 89, BUN/Creatinine Ratio 27.5 H, Glucose 89, Calcium 9.1, Phosphorus 3.6, Magnesium 1.4 L 05/09/24 07:33: WBC 7.3, RBC 3.61 L, Hgb 11.0 L, Hct 34.7 L, MCV 96.1, MCH 30.5, MCHC 31.7 L, RDW Std Deviation 47.8 H, RDW Coeff of Beth 13.4, Plt Count 212, MPV 10.0, Immature Gran % (Auto) 0.500, Neut % (Auto) 63.1, Lymph % (Auto) 18.4 L, [place] % (Auto) 15.3 H, Eos % (Auto) 2.3, Baso % (Auto) 0.4, Absolute Neuts (auto) 4.6, Absolute Lymphs (auto) 1.35, Nucleated RBC % 0 Microbiology: Microbiology 05/07/24 13:50 Mucosa - Nose SARS-CoV-2, Influenza & RSV (PCR) - Final Influenzae A D/C Instructions Discharge Diet: No restrictions Discharge Activity: Return to Normal Activity Call your doctor if you observe: Fever of 101 or Higher, Shortness of breath, Fainting spells and Chest pain DC O2, CPAP, BIPAP Needs Home O2 Discharge instructions: Yes Type of respiratory needs?: Oxygen (2) Oxygen frequency: Continuous Continuous oxygen liters per minute: 2 DC home with Oxygen: Yes Home O2 MD Review: I have reviewed the oxygen testing, and the patient qualifies for home oxygen equipment and portability. The patient is mobile in the home and the community. Meaningful Use Info Meaningful Use Meaningful Use Diagnoses (Choose all that apply): None applicable Ischemic Stroke Statin Dosing Therapy Reference: STATIN DOSE THERAPY REFERENCE: * Patients > 75 years receive moderate or high dose statin therapy. * Patients 75 years or YOUNGER should receive HIGH intensity statin dose unless contraindicated. You will be required to document reason for non-treatment if statin daily dose does not meet guidelines. HIGH DOSE STATIN THERAPY DAILY Atorvastatin > than or = to 40 mg Rosuvastatin > than or = to 20 mg Amlodipine + Atorvastatin > than or = to 2.5/40 mg Ezetimibe + Simvastatin 10/80 mg Simvastatin 80mg Discharge Plan Admission Admit Date/Time: 05/07/24 16:10 Attending Provider: Naresh Watson Primary Care Provider: Maryanne Howard Consulting Providers: Freddie Galo Discharge Orders/Prescriptions Prescriptions: New melatonin 3 mg Tablet 3 mg PO QHS PRN PRN (Reason: Insomnia) Qty: 0 0RF oseltamivir 75 mg Capsule 75 mg PO BID Qty: 8 0RF magnesium chloride [Mag 64] 64 mg Tablet,Delayed Release (Dr/Ec) 128 mg PO BID Qty: 0 0RF Ensure Plus High Protein 0.08 gram-1.5 kcal/mL Liquid 120 ml PO TIDCM Qty: 0 0RF Continued paroxetine HCl 40 mg tablet 1 ea PO DAILY Patient Comments: take 1 tablet by mouth once daily albuterol sulfate 2.5 mg /3 mL (0.083 %) solution for nebulization 2.5 mg continuous nebulization Q8H PRN (Reason: shortness of breath or wheezing) potassium chloride 20 mEq tablet,ER particles/crystals 40 meq PO DAILY multivitamin 1 EACH tablet 1 tab PO DAILY Patient Comments: supplement calcium carbonate 600 MG tablet 600 mg PO DAILY Patient Comments: supplement latanoprost 0.005 % drops 1 drp EACH EYE QHS Patient Comments: place 1 drop into both eyes every evening pramipexole 0.5 mg tablet 1 mg PO BID Patient Comments: take 2 tablets by mouth at bedtime pantoprazole 40 mg tablet,delayed release (DR/EC) 40 mg PO DAILY Patient Comments: take 1 tablet by mouth once daily Eliquis 5 mg tablet 5 mg PO BID Patient Comments: take 1 tablet by mouth twice a day furosemide 40 mg Tablet 40 mg PO DAILY aspirin 81 mg Tablet,Delayed Release (Dr/Ec) 81 mg PO BREAKFAST Qty: 0 0RF atorvastatin 40 mg Tablet 40 mg PO QHS Qty: 0 0RF nystatin [Nyamyc] 100,000 unit/gram Powder 1 applic topical BID Qty: 0 0RF Protocol: *Topical Application Instructions APPLICATION INSTRUCTIONS: Under bilateral breasts and groin diclofenac sodium 1 % gel 4 g TOPICAL BID PRN PRN (Reason: RT KNEE PAIN) calcium carbonate-vitamin D2 600 mg calcium- 200 unit tablet 2 tab PO DAILY ferrous sulfate [FeroSul] 325 mg (65 mg iron) Tablet 325 mg PO 1200,1700 Qty: 60 0RF folic acid 1 mg Tablet 1 mg PO BREAKFAST Qty: 60 0RF sennosides-docusate sodium [Stool Softener-Stimulant Laxat] 8.6-50 mg Tablet 2 tab PO BID Qty: 14 0RF acetaminophen 500 mg Tablet 1,000 mg PO Q8 Qty: 120 0RF albuterol sulfate 90 mcg/actuation HFA aerosol inhaler 2 puff inhalation Q4H PRN (Reason: BREATHING) duloxetine 30 mg capsule,delayed release(DR/EC) 30 mg PO DAILY losartan 50 mg Tablet 50 mg PO DAILY Qty: 0 0RF metoprolol succinate 25 mg Tablet Extended Release 24 Hr 50 mg PO DAILY Qty: 0 0RF Lactobacillus rhamnosus GG 10 billion cell capsule 1 cap PO BID magnesium oxide 500 mg capsule 500 mg PO TID ondansetron HCl 8 mg tablet 8 mg PO Q6H PRN (Reason: nausea and vomiting) Rx Instructions: 1st dose 1-2 hr before radiation Referrals / Follow Up: Maryanne Howard MD [Primary Care Provider] - In 1 Week Disposition Disposition (needs filled in before D/C Order can be placed): NonSkilled NH/Intermed Care Charges/Coding Visit Charges Inpatient E&M: 82903 Disch Hosp >30min
[2024-05-09 10:00] VITALS: RESP 20
--- NOTE | 2024-05-09 10:09 | CASEMGMT ---
Social Work Physician updated and pt is ready for discharge today.? DCA notified of discharge. Final discharge arrangements and notification to patient/family as per discharge planning lead.? Disposition:[facility], intermediate level of care [facility]
--- NOTE | 2024-05-09 10:28 | CASEMGMT ---
Discharge Planning Discharge orders, signed med list, and transport time sent to [facility]. Physicians will transport pt by wheelchair at 11a. Nursing, SW, and pt updated. left for pts son (Nate). Brittany Chapman DC Planning Asst.
[2024-05-09] MEDS: Magnesium Chloride 64 MG Delay Rel.Tablet 128 MG PO (11:01)
[2024-05-09 11:02] VITALS: BP 155/71; PULSE 81; RESP 18; TEMP 36.6; O2SAT 100
== END 2024-05-09 11:02 | disposition intermediate care facility (04) | DRG 193 ==
LOC: ED 16:02 → MS3 19:57
PROVIDERS: Admitting Provider Hospitalist; Emergency Provider Emergency Medicine; PCP Internal Medicine; Visit Provider Internal Medicine
DX: J10.1 Influenza due to other identified influenza virus with other respiratory manifestations (principal); I50.33 Acute on chronic diastolic (congestive) heart failure; J44.0 Chronic obstructive pulmonary disease with (acute) lower respiratory infection; Z68.41 Body mass index [BMI] 40.0-44.9, adult; J96.11 Chronic respiratory failure with hypoxia; D63.8 Anemia in other chronic diseases classified elsewhere; I11.0 Hypertensive heart disease with heart failure; G25.81 Restless legs syndrome; F32.A Depression, unspecified; K21.9 Gastro-esophageal reflux disease without esophagitis; E78.5 Hyperlipidemia, unspecified; I25.2 Old myocardial infarction; F41.9 Anxiety disorder, unspecified; M15.9 Polyosteoarthritis, unspecified; Z90.710 Acquired absence of both cervix and uterus; R53.81 Other malaise; Z86.718 Personal history of other venous thrombosis and embolism; E66.813 Obesity, class 3; Z79.01 Long term (current) use of anticoagulants; Z79.899 Other long term (current) drug therapy; Z79.82 Long term (current) use of aspirin; Z96.643 Presence of artificial hip joint, bilateral; Z96.611 Presence of right artificial shoulder joint; Z96.612 Presence of left artificial shoulder joint; Z96.653 Presence of artificial knee joint, bilateral; Z99.81 Dependence on supplemental oxygen
CPT/HCPCS: 36415; 36600; 71045; 80048; 80053; 82803; 83605; 83735; 83880; 84100; 84145; 84484; 85025; 85027; 87040; 87631; 93005; 94640; 94668; 99285; A4216; J1940

== ENCOUNTER 2025-02-12 11:51 | Emergency (ER) | payer MEDICARE, SELFPAY ==
[2025-02-12 11:52] VITALS: BP 149/53; PULSE 71; RESP 16; TEMP 36.7; O2SAT 98; BMI 45.1
[2025-02-12 12:00] VITALS: BP 110/59; PULSE 64; RESP 16; TEMP 37.2; O2SAT 98
--- NOTE | 2025-02-12 12:24 | EX.ED.DYSGE1 ---
HPI History of Present Illness Chief Complaint: Cellulitis Informant: patient Onset/Context/Timing Onset: Days Context: Gradual Onset Timing: Continuous Current Severity: Mild Maximum Severity: Mild Narrative Narrative: 84-year-old female from local [place] [facility]. She has a history of hypertension, CHF and has a known DVT in her right lower extremity for which she is on Coumadin. The nursing was concerned felt she had cellulitis in her left leg and now felt potentially could be in both legs. She is currently on Keflex. States she has swelling in her legs for the last several months. She is not diabetic. Denies any fever or chills. Prior similar symptoms: Yes Recent Illness/Hospitalization: No PFSH PFS Medical History Elevated lactic acid level Dehydration Acute UTI Cardiology follow-up encounter History of echocardiogram Difficult intravenous access Loss of hearing History of radiation therapy Walker as ambulation aid Uses wheelchair Arthritis Urinary frequency Easy bruising Vertigo Dietary restriction History of hiatal hernia Non-smoker Chronic cough Wears dentures Wears glasses Anxiety History of edema History of heart attack HLD (hyperlipidemia) History of CHF (congestive heart failure) Sleep apnea Depression History of embolism Insomnia Shortness of breath on exertion GERD (gastroesophageal reflux disease) Left shoulder pain Osteopenia Anasarca Hypertension Congestive heart failure (CHF) Restless leg syndrome Home Medications ?Medication ?Instructions ?Recorded ?Last Taken ?Type calcium carbonate 600 mg PO DAILY Check with primary 01/14/15 Unknown History doctor multivitamin 1 tab PO DAILY supplement 01/14/15 Unknown History paroxetine HCl 40 mg tablet 1 ea PO DAILY Check with primary 02/12/20 Unknown History doctor apixaban 5 mg tablet (Eliquis) 5 mg PO BID blood clot 05/30/22 12/22/22 History latanoprost 0.005 % eye drops 1 drp EACH EYE QHS [place] 05/30/22 Unknown History pantoprazole 40 mg tablet,delayed 40 mg PO DAILY Check with primary 05/30/22 Unknown History release doctor pramipexole 0.5 mg tablet 1 mg PO BID restless leg 05/30/22 Unknown History furosemide 40 mg tablet 40 mg PO DAILY Leg Swelling 05/31/22 Unknown History aspirin 81 mg tablet,delayed 81 mg PO BREAKFAST #0 tabs 06/03/22 12/22/22 Rx release atorvastatin 40 mg tablet 40 mg PO QHS hld #0 tabs 06/03/22 Unknown Rx nystatin 100,000 unit/gram topical 1 applic topical BID yeasty #0 06/03/22 Unknown Rx powder (Nyamyc) grams albuterol sulfate 2.5 mg/3 mL 2.5 mg continuous nebulization Q8H 08/03/22 Unknown History (0.083 %) solution for nebulization PRN shortness of breath or wheezing potassium chloride 20 mEq 40 meq PO DAILY LOW POTASSIUM 08/03/22 Unknown History tablet,extended release(part/cryst) calcium carb-ergocalciferol (vit 2 tab PO DAILY SUPPLEMANT 12/19/22 Unknown History D2) 600 mg calcium-200 unit tablet diclofenac sodium 1 % topical gel 4 g topical BID PRN PRN RT KNEE 12/19/22 Unknown History PAIN acetaminophen 500 mg tablet 1,000 mg (2 x 500 mg) PO Q8 PAIN 12/30/22 Unknown Rx #120 tabs ferrous sulfate 325 mg (65 mg 325 mg PO 1200,1700 #60 tabs 12/30/22 Unknown Rx iron) tablet (FeroSul) folic acid 1 mg tablet 1 mg PO BREAKFAST supplement #60 12/30/22 Unknown Rx tabs sennosides 8.6 mg-docusate sodium 2 tab PO BID stool soft #14 tabs 12/30/22 Unknown Rx 50 mg tablet (Stool Softener-Stimulant Laxative) albuterol sulfate 90 mcg/actuation 2 puff inhalation Q4H PRN BREATHING 01/19/24 Unknown History aerosol inhaler duloxetine 30 mg capsule,delayed 30 mg PO DAILY DEPRESSION 01/19/24 Unknown History release losartan 50 mg tablet 50 mg PO DAILY bp #0 tabs 01/21/24 Unknown Rx metoprolol succinate 25 mg 50 mg (2 x 25 mg) PO DAILY heart 01/21/24 Unknown Rx tablet,extended release 24 hr #0 tabs Lactobacillus rhamnosus GG 10 1 cap PO BID PROBITIC 05/07/24 Unknown History billion cell capsule magnesium oxide 500 mg capsule 500 mg PO TID SUPPLEMENT 05/07/24 Unknown History ondansetron HCl 8 mg tablet 8 mg PO Q6H PRN nausea and vomiting 05/07/24 Unknown History food supplemt, lactose-reduced 120 ml PO TIDCM #0 mL 05/09/24 Unknown Rx 0.08 gram-1.5 kcal/mL oral liquid (Ensure Plus High Protein) magnesium chloride 64 mg 128 mg (2 x 64 mg) PO BID #0 tabs 05/09/24 Unknown Rx (magnesium chloride) tablet,delayed release (Mag 64) melatonin 3 mg tablet 3 mg PO QHS PRN PRN Insomnia #0 05/09/24 Unknown Rx tabs oseltamivir 75 mg capsule 75 mg PO BID #8 caps 05/09/24 Unknown Rx Allergy/AdvReac Type Severity Reaction Status Date / Time Penicillins (PCN) Allergy Hives Verified 02/12/25 11:52 Family History Other COPD (chronic obstructive pulmonary disease) Hypertension Surgical History History of cardiac catheterization History of shoulder surgery History of carpal tunnel surgery of right wrist History of endometrial ablation History of carpal tunnel surgery of left wrist History of hysterectomy History of dilation and curettage History of tooth extraction History of rotator cuff surgery History of left hip replacement History of right shoulder replacement History of total replacement of left shoulder joint Status post right partial knee replacement History of total left knee replacement History of total left hip replacement Social History Smoking Status: Never smoker ROS ROS ED ROS Narrative Redness bilateral lower extremities. Denies fever or chills. Constitutional Constitutional ED: Denies chills or fever(s) Eyes Eyes: Denies blurry vision ENT ENT ED: Denies ear pain Cardiovascular Cardiovascular: Denies chest pain Respiratory/Chest Respiratory/Chest: Denies cough or dyspnea Gastrointestinal Gastrointestinal: Denies abdominal pain Genitourinary Genitourinary ED: Denies dysuria or hematuria Musculoskeletal Musculoskeletal: Denies arthralgias Integumentary Reports rash; Denies Abrasions Neurologic Neurologic: Denies headache(s) Psychiatric Psychiatric: Denies anxiety Endocrine Endocrinology: Denies cold intolerance Hematologic/Lymphatic Hematologic/Lymphatic: Reports none and other Details: Patient is on a blood thinner. Allergic/Immunologic Allergic/Immunologic ED: Denies mouth swelling, tongue swelling or urticaria EXAM Physical Exam Narrative Exam Narrative: Well-appearing 84-year-old female. Vital signs are stable afebrile. Pulse ox 90% on 2 L. No hypoxia. H EENT exam pupils round react light. Moist mucous membranes. Neck nontender no JVD. No lymphadenopathy. Lungs clear to auscultation bilaterally. Heart rate about 70 no murmur. Chest wall ribs nontender. Abdomen soft nontender. Moving all 4 extremities. Normal water regulator and valve repairer strength. Normal dorsi plantarflexion. She has a small dime sized wound on the medial aspect of her right lower leg about 6 inches above the ankle. Similar wound on the left lower leg on the lateral portion about 6 inches above the lateral malleolus. Both lower legs are red from about the mid tibia down to almost the ankle. There is no lymphangitic streaking. There is no inguinal lymphadenopathy. There is no swelling of joints. No signs of septic joint. This could be chronic venous stasis versus cellulitis. Calves are nontender. Neurologically she is awake alert. Answering questions and following commands. Const Vital Signs: 02/12/25 11:52 02/12/25 12:00 02/12/25 13:51 Temperature 98.1 F 98.9 F Temperature Source Oral Oral Pulse Rate 71 64 65 Respiratory Rate 16 16 19 H Blood Pressure 149/53 H 110/59 L 121/65 H Blood Pressure Mean 85 76 83 Pulse Ox 98 98 100 Oxygen Delivery Method Nasal Cannula Nasal Cannula Nasal Cannula Oxygen Flow Rate (L/min) 2 2 2 02/12/25 15:00 02/12/25 16:33 Temperature 98.9 F Temperature Source Pulse Rate 58 L 58 L Respiratory Rate 15 15 Blood Pressure 117/58 L 117/58 L Blood Pressure Mean 77 77 Pulse Ox 100 100 Oxygen Delivery Method Room Air Oxygen Flow Rate (L/min) MDM MDM MDM Narrative Medical decision making narrative: 84-year-old female senting for possible bilateral lower extremity cellulitis versus chronic venous stasis changes. She is reportedly on Coumadin for DVT in her right leg. She was previously on Eliquis they have switched it. She denies any fever or chills. Repeat exam patient is doing well at 4:30 PM. The legs look no worse even a little bit better I think this is mostly chronic changes of venous stasis. I do not think she needs to be admitted. I do not have a strong suspicion is a cellulitis. She can continue her current antibiotics Keflex. Due to her elevated INR Coumadin will be held. I will discuss that with the jail. Prior to discharge. Patient currently is resting comfortably. Her leg exam is improved if not worse. I spoke to nursing staff at the patient's [place] [facility]. They are aware of holding the Coumadin and have an level rechecked in 2 days before having it restarted. History & Record Review Discussion w/independent historian: Patient Additional record(s) reviewed:: Prior outpatient record, Prior ED visit and Prior labs Lab Data Attestation: I reviewed the patient's lab results. Lab results narrative: CBC shows normal white count 6.3 H&H 10.7 and 33. Platelets 184 PT/INR 68 8.0 she is on Coumadin. She and I discussed that. Her Coumadin will be held. Have to be rechecked in 2 days and restarted when the INR is closer to 2-1/2-3. I will discuss that with her jail. Chemistries show gap at 9. BUN and creatinine 28 and 0.75. Glucose of 101. Labs: Laboratory Results - last 24 hr 02/12/25 11:57 WBC 6.3 RBC 3.54 L Hgb 10.7 L Hct 33.6 L MCV 94.9 MCH 30.2 MCHC 31.8 L RDW Std Deviation 56.9 H RDW Coeff of Beth 16.0 H Plt Count 184 MPV 10.6 Immature Gran % (Auto) 0.200 Neut % (Auto) 57.5 Lymph % (Auto) 27.4 [place] % (Auto) 12.5 H Eos % (Auto) 1.9 Baso % (Auto) 0.5 Absolute Neuts (auto) 3.6 Absolute Lymphs (auto) 1.71 Nucleated RBC % 0 PT 68.6 H INR 8.0 H* Sodium 140 Potassium 4.4 Chloride 100 Carbon Dioxide 31.2 Anion Gap 9 BUN 28 H Creatinine 0.75 Estim Creat Clear Calc 67.75 Est GFR (MDRD) Non-Af 79 BUN/Creatinine Ratio 37.1 H Glucose 101 H Calcium 9.7 Discharge Plan Triage Chief Complaint: Cellulitis ED Provider: Franklin Rodriguez Dx/Rx/DC Orders Clinical Impression: Venous stasis dermatitis, History of deep vein thrombosis, Chronic anticoagulation, Supratherapeutic INR Prescriptions: No Action paroxetine HCl 40 mg tablet 1 ea PO DAILY Patient Comments: take 1 tablet by mouth once daily albuterol sulfate 2.5 mg /3 mL (0.083 %) solution for nebulization 2.5 mg continuous nebulization Q8H PRN (Reason: shortness of breath or wheezing) potassium chloride 20 mEq tablet,ER particles/crystals 40 meq PO DAILY multivitamin 1 EACH tablet 1 tab PO DAILY Patient Comments: supplement calcium carbonate 600 MG tablet 600 mg PO DAILY Patient Comments: supplement latanoprost 0.005 % drops 1 drp EACH EYE QHS Patient Comments: place 1 drop into both eyes every evening pramipexole 0.5 mg tablet 1 mg PO BID Patient Comments: take 2 tablets by mouth at bedtime pantoprazole 40 mg tablet,delayed release (DR/EC) 40 mg PO DAILY Patient Comments: take 1 tablet by mouth once daily Eliquis 5 mg tablet 5 mg PO BID Patient Comments: take 1 tablet by mouth twice a day furosemide 40 mg Tablet 40 mg PO DAILY aspirin 81 mg Tablet,Delayed Release (Dr/Ec) 81 mg PO BREAKFAST Qty: 0 0RF atorvastatin 40 mg Tablet 40 mg PO QHS Qty: 0 0RF nystatin [Nyamyc] 100,000 unit/gram Powder 1 applic topical BID Qty: 0 0RF Protocol: *Topical Application Instructions APPLICATION INSTRUCTIONS: Under bilateral breasts and groin diclofenac sodium 1 % gel 4 g TOPICAL BID PRN PRN (Reason: RT KNEE PAIN) calcium carbonate-vitamin D2 600 mg calcium- 200 unit tablet 2 tab PO DAILY ferrous sulfate [FeroSul] 325 mg (65 mg iron) Tablet 325 mg PO 1200,1700 Qty: 60 0RF folic acid 1 mg Tablet 1 mg PO BREAKFAST Qty: 60 0RF sennosides-docusate sodium [Stool Softener-Stimulant Laxat] 8.6-50 mg Tablet 2 tab PO BID Qty: 14 0RF acetaminophen 500 mg Tablet 1,000 mg PO Q8 Qty: 120 0RF albuterol sulfate 90 mcg/actuation HFA aerosol inhaler 2 puff inhalation Q4H PRN (Reason: BREATHING) duloxetine 30 mg capsule,delayed release(DR/EC) 30 mg PO DAILY losartan 50 mg Tablet 50 mg PO DAILY Qty: 0 0RF metoprolol succinate 25 mg Tablet Extended Release 24 Hr 50 mg PO DAILY Qty: 0 0RF Lactobacillus rhamnosus GG 10 billion cell capsule 1 cap PO BID magnesium oxide 500 mg capsule 500 mg PO TID ondansetron HCl 8 mg tablet 8 mg PO Q6H PRN (Reason: nausea and vomiting) Rx Instructions: 1st dose 1-2 hr before radiation melatonin 3 mg Tablet 3 mg PO QHS PRN PRN (Reason: Insomnia) Qty: 0 0RF oseltamivir 75 mg Capsule 75 mg PO BID Qty: 8 0RF magnesium chloride [Mag 64] 64 mg Tablet,Delayed Release (Dr/Ec) 128 mg PO BID Qty: 0 0RF Ensure Plus High Protein 0.08 gram-1.5 kcal/mL Liquid 120 ml PO TIDCM Qty: 0 0RF Primary Care Provider: Maryanne Howard Referrals: Maryanne Howard MD [[facility]] - 3-5 Days Activity Restrictions/Additional Instructions: Continue your current antibiotic Keflex. I think most of the rash on her legs is from chronic venous stasis changes. Not acute infection. She does not need to be admitted to the hospital for this. Patient is currently on Coumadin for anticoagulation. Her INR was elevated today at 8.0. Her Coumadin needs to be held for the next 2 days. And the INR rechecked prior to restarting the anticoagulation. Print Language: Kiswahili Disposition Disposition: Home, Self Care
[2025-02-12 12:32] LABS: Hematocrit 33.6 % (37-47); Hemoglobin 10.7 g/dL (12.0-15.0); Immature Granulocytes Count 0.010 X10^3/uL (0.0-0.0); Mean Corp Hgb Conc 31.8 g/dL (32-36); Mean Corpuscular Volume 94.9 fL (81-99); Mean Platelet Vol. 10.6 fl (6.2-12.0); NRBC Flagged by Analyzer 0 % (0-5); Platelet Count 184 K/mm3 (150-450); RBC Distribution Width CV 16.0 % (11.6-14.6); RBC Distribution Width SD 56.9 fl (35.1-43.9); Red Blood Count 3.54 M/mm3 (4.2-5.4); White Blood Count 6.3 K/mm3 (4.4-11.0)
[2025-02-12 12:48] LABS: Prothrombin Time (Protime)PT. 68.6 SECONDS (11.7-14.9)
[2025-02-12 13:17] LABS: Anion Gap 9 (5-15); BUN 28 mg/dL (4-19); BUN/Creat Ratio 37.1 RATIO (10-20); Calcium,Total 9.7 mg/dL (7.6-11.0); Carbon Dioxide 31.2 mmol/L (21.0-32.0); Chloride 100 mmol/L (98-108); Estimated Creatinine Clearance 67.75 ml/min (50-250); Glucose 101 mg/dL (70-99); Potassium 4.4 mmol/L (3.3-5.1)
--- NOTE | 2025-02-12 13:48 | ED.RN ---
Dr Rodriguez notified of critical INR.
[2025-02-12 13:51] VITALS: BP 121/65; PULSE 65; RESP 19; O2SAT 100
[2025-02-12 15:00] VITALS: BP 117/58; PULSE 58; RESP 15; O2SAT 100
--- NOTE | 2025-02-12 15:59 | ED.RN ---
Christine from [facility] requesting update. RN informed nurse she is waiting for doctor to come in and talk about her results. I will call you back when we have a plan. No further questions
[2025-02-12 16:33] VITALS: BP 117/58; PULSE 58; RESP 15; TEMP 37.2; O2SAT 100
--- NOTE | 2025-02-12 16:33 | ED.RN ---
[facility] called for [facility] back to [facility]. ETA 184
[2025-02-12 18:17] VITALS: RESP 16
--- NOTE | 2025-02-12 19:06 | CM.ED ---
Social Work Reason for visit: ADV verification SW met with patient, explained reason for visit and asked if the people listed on her HPOA were still accurate. Patient states her primary agent, who was a friend, has and her secondary agent, who is her brother, is still alive but living [place] the [place]. Patient was encouraged to ask SW at SNF to help her redo her HPOA, patient expressed gratitude for the information and stated she would get it updated. Sarah Santana, BARBER APPRENTICE, ASSISTANT SPEECH LANGUAGE PATHOLOGIST
== END 2025-02-12 18:23 ==
PROVIDERS: Emergency Provider Emergency Medicine; PCP Internal Medicine; Visit Provider Emergency Medicine
DX: I87.2 Venous insufficiency (chronic) (peripheral) (principal); I11.0 Hypertensive heart disease with heart failure; I50.9 Heart failure, unspecified; I82.401 Acute embolism and thrombosis of unspecified deep veins of right lower extremity; R79.1 Abnormal coagulation profile; Z79.01 Long term (current) use of anticoagulants; Z79.899 Other long term (current) drug therapy
CPT/HCPCS: 80048; 85025; 85610; 99285; A4216